=== PATIENT | male | born 1955 | race Caucasian/White ===

== ENCOUNTER → 2016-10-02 | Outpatient (CLI) | payer BC ==
--- NOTE | 2016-10-03 08:03 | EEG ---
DATE OF SERVICE: 10/02/2016 INDICATIONS FOR EXAMINATION: Syncope and memory loss. AGE: 61Y DESCRIPTION OF PROCEDURE: This EEG was performed using a 21-channel digital electroencephalograph, following international 10 to 20 system. DESCRIPTION OF THE RECORDING: From the beginning of the tracing, and with the patient's eyes closed, the background rhythm was mostly consisting of 8 to 9 Hz alpha frequency in the posterior occipital leads. No obvious asymmetry is seen. Photic stimulation was performed with a good driving response seen. No pathological waves were elicited. Hyperventilation was not performed. Later in the tracing, the patient does reach stage 2 of sleep and occasional sleep spindles are seen. No epileptiform discharges were seen. His EKG leads shows a regular rate and rhythm. INTERPRETATION: This asleep and awake EEG can be considered within normal limits. There was no asymmetry seen. No epileptiform discharges were noticed. The absence of epileptiform discharges does not rule out the diagnosis of epilepsy, therefore clinical correlation is recommended. Thank you, Dr. Abernathy, for allowing me to participate in the care of your patient. If you have any questions, please feel free to contact me.
== END | disposition home or self-care (01) ==
LOC: NEUROMAIN 12:40
PROVIDERS: ATTEND Psychiatry & Neurology Neurology
DX: R55 Syncope and collapse (principal); R41.3 Other amnesia; M54.81 Occipital neuralgia
CPT/HCPCS: 95819

== ENCOUNTER 2016-10-13 12:42 | Day surgery (SDC) | payer BC ==
[2016-10-07 16:08] VITALS: BMI 27.8
[~2016-10-13 12:42] MED LIST: SODIUM CHLORIDE 0.9% 1,000 ML IV SCH
[2016-10-13 13:16] VITALS: RESP 18; TEMP 98
[2016-10-13 17:07] VITALS: BP 125/77; PULSE 74
--- NOTE | 2016-10-13 17:50 | CE ---
DATE OF SERVICE: 61-year-old male patient. The patient was referred by Dr. Swain for a tilt table test. Baseline blood pressure 133/87 mm of mercury, which correspond to be clear site blood pressures. The patient was tilted upright at an angle of 70 degrees per protocol. There was an immediate drop in his blood pressure to 114/69 millimeters of mercury (at least between 10 to 15 mm mercury systolic) but he had no symptoms at that time. Thereafter there was a steady slow decline in his blood pressure. The lowest blood pressure recorded was 99/70 mmHg. Occasionally he felt lightheaded for the latter half of the procedure. He was laid flat. His blood pressure again increased to 137/87 mm Hg. There was a minimal change in his heart rate corresponding to the slow decline in his blood pressure. IMPRESSION: Mild dysautonomic response to upright tilting (orthostatic hypotension syndrome). No syncope. The patient felt lightheaded.
== END 2016-10-13 15:45 | disposition home or self-care (01) ==
LOC: CATHEP 12:42
PROVIDERS: ATTEND Internal Medicine Clinical Cardiac Electrophysiology
DX: I95.1 Orthostatic hypotension (principal)
CPT/HCPCS: 93005; 93660

== ENCOUNTER → 2016-10-18 | Outpatient (CLI) | payer BC ==
--- NOTE | 2016-10-19 10:00 | MR ---
EXAMINATION TYPE: MR brain wo con DATE OF EXAM: 10/18/2016 12:29 PM COMPARISON: 11/28/2013 HISTORY: amnesia, dizzy, headache, weakness CONTRAST: None TECHNIQUE: Multiplanar, multiecho imaging on a 3.0 Rosanne magnet is performed through [facility]. Study is performed within 24 hours of arrival to the hospital. The craniovertebral junction is normal. The pituitary is normal. Diffusion-weighted imaging is performed. No abnormal hyperintensity is present to suggest an acute i ntracranial infarct or acute ischemic change. There are scattered punctate areas of hyperintensity on T2 and Inversion Recovery weighted sequences which are non-specific but can be related to microvascular ischemic changes. Ventricles and sulci are appropriate for the patient age. Fluid is within the left mastoid air cells inferiorly. Correlate for acute left mastoiditis. Mucosal thickening is within ethmoid air cells. Right septal deviation is noted. IMPRESSIONS: 1. Scattered stable appearing chronic white matter ischemic changes. 2. Clinical correlation recommended for acute left mastoiditis.
== END | disposition home or self-care (01) ==
LOC: RADMRIMAIN 11:55
PROVIDERS: ATTEND Psychiatry & Neurology Neurology
DX: R90.82 White matter disease, unspecified (principal); M54.81 Occipital neuralgia
CPT/HCPCS: 70551

== ENCOUNTER → 2016-11-26 | Outpatient (CLI) | payer BC ==
--- NOTE | 2016-11-26 15:17 | CT ---
EXAMINATION TYPE: CT iac wo con DATE OF EXAM: 11/26/2016 3:05 PM COMPARISON: MRI brain October 18, 2016. CT brain June 10, 2013 HISTORY: abnormal mastoid findings on prior MRI, extensive cholesteatoma per order. CT DLP: 150.0 mGycm. Automated Exposure Control for Dose Reduction was Utilized. TECHNIQUE: CT scan of internal auditory canal is performed without contrast, thin cut axial images ar e obtained, coronal reformatted images are also reviewed. FINDINGS: The external auditory canals are patent bilaterally. Mastoid air cells show persistent opa cification of majority of left mastoid air cells unchanged from 2013 CT. There is been prior left te mporal or partial mastoid surgery redemonstrated. No suspicious fluid signal right mastoid air cells is seen. The middle ear ossicles are symmetric and unremarkable. There is no evidence of suspicious surrounding soft tissue density to suggest cholesteatoma bilaterally. The scutum is preserved bilate rally. The cochlea and the semicircular canals are symmetric . On the left side the superior canal is loss of normal overlying bone seen best coronal images 106 through 109.Vestibular aqueduct and int ernal carotid canal appear unremarkable. There is asymmetric flattening and spurring of the left temporomandibular joint versus opposite right side. There is 7 mm ossific structure left frontal sinus on axial image 65 suspicious for osteoma. V isualized portion brain parenchyma is felt within normal limits. The globes are intact bilaterally. IMPRESSION: 1. Evidence of prior surgery left mastoid air cells with chronic opacification suggest chronic mastoi ditis. 2. 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
== END | disposition home or self-care (01) ==
LOC: RADCTMAIN 14:50
PROVIDERS: ATTEND Otolaryngology
DX: H71.12 Cholesteatoma of tympanum, left ear (principal); Z98.890 Other specified postprocedural states
CPT/HCPCS: 70480

== ENCOUNTER → 2017-06-17 | Outpatient (CLI) | payer BC ==
--- NOTE | 2017-06-17 18:02 | CONS ---
CONSULTATION This patient is a 62-year-old gentleman who has been evaluated in the sleep center for obstructive sleep apnea-hypopnea syndrome. HISTORY OF PRESENT ILLNESS/SLEEP-WAKE EVALUATION: Patient was diagnosed with obstructive sleep apnea about 6 years ago in a different institution and was started on treatment with CPAP but had difficulties with CPAP and was not able to use it; he quit treatment in about 6 weeks. At present his sleep schedule is from around 10 p.m. to midnight until 6:30 to 9 a.m. No problem with falling asleep. No TV in bedroom. According to his , he snores, has episodes of stopped breathing during sleep. He wakes up from sleep up to 4 times with up to 4 episodes of nocturia, panic attacks and heartburn. He also has positive history of restless legs, sleeptalking and sweating. In the morning he wakes up tired, has difficulties paying attention, problems with concentration, depression, anxiety, sexual dysfunction. [place] Sleepiness Scale is increased at 10. PAST MEDICAL HISTORY: 1. Hypertension. 2. Hyperlipidemia. 3. Episodes of dizziness. 4. BPH. 5. Acid reflux. 6. Anxiety. 7. Bipolar. 8. Restless legs. 9. Ankylosing spondylitis. PAST SURGICAL HISTORY: 1. Surgery for nasal septum deviation. 2. Hernia repair. MEDICATIONS: 1. Enbrel. 2. Simvastatin. 3. Lamotrigine. 4. Metoprolol. 5. Omeprazole. 6. Gabapentin. 7. . 8. Clonazepam. 9. Citalopram. 10.Zocor. 11.Lamictal. 12.Toprol. 13.Celexa. SOCIAL HISTORY: Negative for smoking or using alcohol. FAMILY HISTORY: Hypertension, snoring, headaches. REVIEW OF SYSTEMS: Multiple awakenings from sleep. Sleepiness during the day. PHYSICAL EXAM: A pleasant gentleman without distress. VITAL SIGNS: BP 136/86, HR 69, RR 18, height 69 inches, weight 202 pounds, BMI 29.8. Neck 17-3/4 inches in circumference. Temperature 98.0. Oxygen saturation on room air 95%. HEENT: PERRLA, EOMI. Evaluation of oropharynx showed tongue protrudes midline; extremely low position of soft palate. NECK: Supple. No JVD. Thyroid is not palpable. LUNGS: Clear to percussion and to auscultation. Good air exchange. No wheezing or rhonchi. HEART: S1, S2 irregularly irregular. ABDOMEN: Slightly obese. EXTREMITIES: No clubbing or cyanosis. GLASS SMOOTHER: Awake, alert and oriented x3. Cranial nerves 2 to 7 intact. There is no fasciculation or atrophy noted. No focal deficits observed. IMPRESSION: 1. Snoring, witnessed episodes of stopped breathing during sleep, low position of soft palate, history of obstructive sleep apnea in the past, sleepiness, wide neck; obstructive sleep apnea-hypopnea syndrome. 2. Overweight; borderline to obesity; BMI 29.8. 3. Hyperlipidemia. 4. Hypertension. 5. Benign prostatic hypertrophy. 6. History of episodes of dizziness. 7. Acid reflux. 8. Anxiety. 9. Bipolar. 10.Restless leg syndrome. 11.Ankylosing spondylitis. 12.Status post surgical treatment of nasal septum deviation x2. 13.Status post hernia repair. PLAN: 1. Polysomnography for evaluation of patient's breathing during sleep. 2. CPAP/BiPAP titration if sleep study confirms obstructive sleep apnea-hypopnea syndrome. 3. Preferable position during sleep on the side. 4. No driving if patient feels any sleepiness. Patient is aware of civil and criminal liability for unsafe driving. 5. I will see patient for follow-up visit to explain results of testing and following plan. Thank you very much for referring this patient for consultation. Sincerely, Shad Isidro MD, PhD, FAASM Diplomat of [employer] [employer] Supervisor of [facility] [place] MMODL / IJN: [id number] /
== END ==
LOC: SLEEP 15:28
PROVIDERS: ATTEND Internal Medicine
DX: G47.33 Obstructive sleep apnea (adult) (pediatric) (principal); E66.3 Overweight; E78.5 Hyperlipidemia, unspecified; I10 Essential (primary) hypertension; N40.0 Benign prostatic hyperplasia without lower urinary tract symptoms; K21.9 Gastro-esophageal reflux disease without esophagitis; F41.9 Anxiety disorder, unspecified; F31.9 Bipolar disorder, unspecified; G25.81 Restless legs syndrome; M45.9 Ankylosing spondylitis of unspecified sites in spine; Z98.890 Other specified postprocedural states; Z68.29 Body mass index [BMI] 29.0-29.9, adult; Z79.899 Other long term (current) drug therapy
CPT/HCPCS: 99211

== ENCOUNTER → 2017-09-17 | Outpatient (CLI) | payer BC ==
--- NOTE | 2017-09-17 14:49 | PN ---
PROGRESS NOTE DATE OF SERVICE: 09/17/2017 62-year-old gentleman has been followed in Sleep Center for treatment of obstructive sleep apnea-hypopnea syndrome. Recently patient has been diagnosed with mild obstructive sleep apnea by results of home sleep apnea test. By this test apnea-hypopnea index was 5.2, but the patient did not sleep for the whole time of the test. At home, it might be underestimation of his breathing problems. The patient was started on treatment with CPAP automatic regimen at the pressure range between 5 and 12 and today he came for followup visit. He is using Dream Wear mask and often mask is off during the night and he feels that there is some air leak. I checked his CPAP unit. Usage is 29/30 nights and 25/30 nights more than 4 hours. Average usage is 6.4 hours. Pressure range is 9.7 cm of water. Leak is high 44 L/minute. Apnea-hypopnea index reading for the last month is 3.8. Patient continued to feel sleepiness during the day. [place] Sleepiness Scale today is 17. PHYSICAL EXAM: GENERAL Patient in no distress VITAL SIGNS BP 110/75, HR 74, RR 16, weight 203, temp 98.4, oxygen saturation room air 96%. HEENT PERRLA, EOMI, evaluation of oropharynx showed extremely low position of soft palate. NECK Supple, no JVD. Thyroid is not palpable. LUNGS Clear to percussion and to auscultation. Good air exchange. No wheezing or rhonchi. HEART S1, S2 regular. No murmurs, gallops, or rubs. ABDOMEN Obese. Soft and nontender. Bowel sounds are present. No organomegaly appreciated. EXTREMITIES No clubbing or cyanosis. KILNMAN Awake, alert, and oriented X3. Cranial nerves 2 to 7 intact. There is no fasciculation or atrophy. noted. No focal deficits observed. IMPRESSION: 1. Mild obstructive sleep apnea-hypopnea syndrome. Breathing improved on CPAP in automatic regimen 5-12 most time the pressure is 9.7. 2. The patient continued to have symptoms of excessive daytime sleepiness. 3. Significant leak from his mask during the treatment. 4. Hypertension. 5. Hyperlipidemia. 6. Benign prostatic hypertrophy. 7. Episodes of dizziness. 8. Acid reflux. 9. Anxiety. 10.Bipolar. 11.Ankylosing spondylitis. 12.Status post surgical treatment for nasal septum deviation. PLAN: 1. We will change the patient's nasal pillow and nasal mask to prevent any significant leak. 2. Continue to use CPAP equipment every night. 3. Sleep hygiene with regular time in bed for at least 7-1/2 hours. 4. No driving if feels any sleepiness. 5. Followup visit in 2 months. Shad Isidro MD, PhD, FAASM Diplomat of [employer] Rehabilitation Teacher of [facility] [place] MMODL / IJN: [id number] /
== END | disposition home or self-care (01) ==
LOC: SLEEP 13:13
PROVIDERS: ATTEND Internal Medicine
DX: G47.33 Obstructive sleep apnea (adult) (pediatric) (principal); I10 Essential (primary) hypertension; E78.5 Hyperlipidemia, unspecified; N40.0 Benign prostatic hyperplasia without lower urinary tract symptoms; K21.9 Gastro-esophageal reflux disease without esophagitis; F41.9 Anxiety disorder, unspecified; F31.9 Bipolar disorder, unspecified; M45.9 Ankylosing spondylitis of unspecified sites in spine; Z99.89 Dependence on other enabling machines and devices; Z98.890 Other specified postprocedural states

== ENCOUNTER 2017-10-20 14:10 | Emergency (ER) | payer BC ==
[2017-10-20] MEDS ORDERED: hydrOXYzine PAMOATE 25 MG CAP PO ONE (14:44)
--- NOTE | 2017-10-20 14:52 | ED ---
Anxiety HPI - General Chief Complaint: Anxiety Stated Complaint: anxiety Time Seen by Provider: 10/20/17 14:24 Source: patient, family Mode of arrival: ambulatory - History of Present Illness Initial Comments: Patient is a 62-year-old male with a history of anxiety, and bipolar depression who presents with a chief complaint of anxiety. Patient states that he is working with Dr. Soria to adjust his medications. Currently the patient is on Celexa, he was weaned off all benzodiazepines, is currently weaning himself off of Lamictal. Patient states that for the last 2 days, the patient has been a constant state of anxiety. It is to the point where he cannot sleep. He cannot identify any inciting incidences. There are no specific aggravating or alleviating factors. Timing is constant. Patient states that he has had intermittent thoughts of suicidal ideation. He does have access to firearms in weapons at home. - Related Data Home Medications: Home Medications Medication Instructions Recorded Confirmed Etanercept [Enbrel] 50 mg SQ Q7DAYS 09/22/14 10/20/17 Simvastatin [Zocor] 40 mg PO DAILY 09/22/14 10/20/17 lamoTRIgine [LaMICtal] 150 mg PO BID 09/22/14 10/20/17 Metoprolol Succinate [Toprol XL] 25 mg PO DAILY 10/07/16 10/20/17 clonazePAM [KlonoPIN] 0.5 mg PO BID PRN 10/07/16 10/20/17 Citalopram Hydrobromide [CeleXA] 40 mg PO DAILY 10/20/17 10/20/17 Previous Rx's Medication Instructions Recorded hydrOXYzine PAMOATE [Vistaril] 50 mg PO TID #30 capsule 10/20/17 Allergies/Adverse Reactions: Allergies Allergy/AdvReac Type Severity Reaction Status Date / Time hydrocodone bitartrate Allergy Itching Verified 10/20/17 14:34 [From Vicodin] iodine Allergy Diarrhea Verified 10/20/17 14:34 Penicillins Allergy Unknown Verified 10/20/17 14:34 shellfish derived Allergy Diarrhea Verified 10/20/17 14:34 Review of Systems ROS Statement: Those systems with pertinent positive or pertinent negative responses have been documented in the HPI. ROS Other: All systems not noted in ROS Statement are negative. Psychiatric: Reports: anxiety, depression, suicidal thoughts Past Medical History Past Medical History: GERD/Reflux, Hyperlipidemia, Hypertension, Musculoskeletal Disorder, Prostate Disorder, Sleep Apnea/CPAP/BIPAP Additional Past Medical History / Comment(s): SLEEP APNEA (DOES NOT USE MACHINE) , BIPOLAR, ARTHRITIS, PAST HX OF CROHNS, ENLARGED PROSTATE, ANKYLOSING SPONDYLITIS, RLS, NEUROPATHY, STATES OCCASIONAL DIZZINESS. History of Any Multi-Drug Resistant Organisms: None Reported Past Surgical History: Cholecystectomy, Hernia Repair Additional Past Surgical History / Comment(s): lt ear surgery, lt foot surgery, rt rotator cuff surgery, nasal surgeries x2, colonoscopies Past Anesthesia/Blood Transfusion Reactions: No Reported Reaction Past Psychological History: Anxiety, Bipolar, Depression Smoking Status: Never smoker - Past Family History Daughter(s) Additional Family Medical History / Comment(s): MS Father Family Medical History: Cancer General Exam Limitations: no limitations General appearance: alert, in no apparent distress Head exam: Present: atraumatic, normocephalic Eye exam: Present: normal appearance ENT exam: Present: normal exam Respiratory exam: Present: normal lung sounds bilaterally. Absent: respiratory distress Cardiovascular Exam: Present: regular rate, normal rhythm GI/Abdominal exam: Present: soft. Absent: distended, tenderness Rectal exam: Present: deferred Neurological exam: Present: alert, oriented X3, normal gait Psychiatric exam: Present: depressed, anxious Skin exam: Present: warm, dry, intact Course Vital Signs 10/20/17 14:11 Temperature 98.7 F Pulse Rate 80 Respiratory 20 Rate Blood Pressure 133/71 O2 Sat by Pulse 95 Oximetry Medical Decision Making - Medical Decision Making Patient presents with a chief complaint of anxiety. On initial evaluation, vital signs are stable, patient is in no acute distress. When questioned, the patient states that he has had intermittent thoughts of suicide. He does not currently have a plan. The patient does state however that he does have access to weapons at home. Patient will be evaluated by EPS 4:17 PM Patient was evaluated by EPS. At this time, patient states that he is not suicidal or homicidal. Patient will be directed towards outpatient follow-up. He was further instructed to try to contact his psychiatrist, Dr. Castillo. Patient was given explicit return to emergency department instructions. At this time, patient will be prescribed Vistaril and instructed to follow-up with primary care, in psychiatry. The patient's was instructed to remove firearms from the house, and make sure that there are place of the patient cannot reach them. She is agreeable with this care plan. Disposition Clinical Impression: Acute anxiety, Panic attack, Depression Disposition: HOME SELF-CARE Condition: Good Instructions: Generalized Anxiety Disorder (ED) Prescriptions: hydrOXYzine PAMOATE [Vistaril] 50 mg PO TID #30 capsule Referrals: Curry Abernathy MD [Primary Care Provider] - 1-2 days
[2017-10-20 17:34] VITALS: BP 144/82; PULSE 68; RESP 18; TEMP 98.8
== END 2017-10-20 17:33 | disposition home or self-care (01) ==
LOC: EC 14:10
DX: F41.0 Panic disorder [episodic paroxysmal anxiety] (principal); F31.9 Bipolar disorder, unspecified; K21.9 Gastro-esophageal reflux disease without esophagitis; E78.5 Hyperlipidemia, unspecified; I10 Essential (primary) hypertension; Z79.899 Other long term (current) drug therapy; Z88.0 Allergy status to penicillin; Z88.5 Allergy status to narcotic agent; Z91.013 Allergy to seafood; Z91.048 Other nonmedicinal substance allergy status
CPT/HCPCS: 82075; 99283

== ENCOUNTER → 2017-12-08 | Outpatient (CLI) | payer BC ==
--- NOTE | 2017-12-08 17:26 | PN ---
PROGRESS NOTE This 60-year-old male patient was initially evaluated by Dr. Isidro. He was diagnosed having obstructive sleep apnea. The patient is coming in for a compliancy check. I reviewed the sleep study. The patient is a very mild sleep apnea. Based on his home sleep study that showed an AHI of 5.2. The patient was offered CPAP therapy and the patient is currently on auto CPAP with a minimum pressure of 5 maximum pressure of 12. He was tried on different masks was given dream wear mask. He was given nose mask and he was given full face mask. He was not comfortable with any of these. He is currently using a Clemens FX mask which he thinks is the best. He does not report any marked improvement in his symptoms. He does not have any major hypersomnia or sleepiness anyway. His sleep quality is essentially the same. The only benefit he is experiencing is the absence of the snoring which is completely recovered. I checked compliance data and over the past 30 days the patient has average around 6.9 hours of CPAP use per night. He is averaging his leak factor 30 L per minute. His AHI is down to 4.1. He had to use the CPAP for more than 4 hours, 22 out of the past 30 days. He seems to be committed knowing that his is very happy with ongoing treatment and she states that his snoring has completely subsided. He has also known multiple comorbidities include hypertension, hyperlipidemia, BPH, acid reflux anxiety/depression/bipolar disorder along with a history of ankylosing spondylitis. REVIEW OF SYSTEMS: 12-point review of system was done. Positive findings are mentioned above in the history of present illness. The patient has some ongoing fatigue and tiredness [place] Score is at 14 for now. No body aches or pains. No muscle paralysis. No weakness. No dreams. No hallucinations. No nightmares. Occasional dizziness. Occasional nocturia. No chest pain. No shortness of breath. No heartburn during sleep. No altered mentation. PHYSICAL EXAMINATION: BP is 117/76, pulse 78, respirations 16, temperature 98.0, saturation 94% on room air. Height is 5 feet 9 inches, weight 195, [place] score of 14. BMI 28.9. General appearance: Calm, comfortable. Head is atraumatic, normocephalic. Neck short, supple. Mild crowding of posterior pharynx, Mallampati class 3. There is no goiter or neck masses. LUNGS: Clear to auscultation. HEART: Sounds regular rate and rhythm. Normal S1, S2. No S3, S4. No murmurs. ABDOMEN: Soft, nontender. No organomegaly. EXTREMITIES: No edema. No cyanosis or clubbing. NEUROLOGIC: The patient awake and alert times 3. No focal neurological deficits. Psychiatric adequate mood and affect. IMPRESSION: 1. Diffuse mild obstructive sleep apnea with an AHI of 5.2. 2. Chronic snoring recovered with CPAP therapy. 3. Hypertension. 4. Hyperlipidemia. 5. Benign prostatic hypertrophy. 6. Acid reflux. 7. Anxiety/bipolar disorder. 8. Ankylosing spondylitis. PLAN: 1. Continue CPAP therapy at same level of pressure. 2. Offered this patient dream wear nasal pillows. 3. Encourage weight loss. 4. Optimize sleep hygiene measures. 5. Averaging 6.9 hours of CPAP use per night, will likely increase his compliance even further and utilizing CPAP more than 4 hours every night. 6. Follow up with Dr. Isidro in 6 months' time. His treatment is successful for now. MMODL / IJN: [id number] /
== END | disposition home or self-care (01) ==
LOC: SLEEP 14:18
PROVIDERS: ATTEND Internal Medicine
DX: G47.33 Obstructive sleep apnea (adult) (pediatric) (principal); I10 Essential (primary) hypertension; E78.5 Hyperlipidemia, unspecified; N40.0 Benign prostatic hyperplasia without lower urinary tract symptoms; K21.9 Gastro-esophageal reflux disease without esophagitis; M45.9 Ankylosing spondylitis of unspecified sites in spine; Z99.89 Dependence on other enabling machines and devices

== ENCOUNTER → 2018-08-03 | Outpatient (CLI) | payer BC ==
--- NOTE | 2018-08-04 07:33 | ECHOF ---
Referral Reason:Dizziness R42 MEASUREMENTS -------- HEIGHT: 177.8 cm WEIGHT: 90.7 kg BP: RVIDd: 2.3 cm (< 3.3) IVSd: 1.0 cm (0.6 - 1.1) LVIDd: 5.1 cm (3.9 - 5.3) LVPWd: 1.1 cm (0.6 - 1.1) IVSs: 1.7 cm LVIDs: 3.7 cm LVPWs: 1.6 cm LAESV Index (A-L): 23.95 ml/m Ao Diam: 3.3 cm (2.0 - 3.7) AV Cusp: 2.3 cm (1.5 - 2.6) LA Diam: 3.6 cm (2.7 - 3.8) MV EXCURSION: 17.354 mm (> 18.000) MV EF SLOPE: 75 mm/s (70 - 150) EPSS: 1.0 cm MV E Ervin: 0.67 m/s MV DecT: 208 ms MV A Ervin: 0.72 m/s MV E/A Ratio: 0.93 AR PHT: 556 ms RAP: 5.00 mmHg RVSP: 14.05 mmHg FINDINGS -------- Sinus rhythm. This was a technically adequate study. The left ventricular size is normal. There is borderline concentric left ventricular hypertrophy. Overall left ventricular systolic function is low-normal with, an EF between 50 - 55 %. The right ventricle is normal in size and function. Normal LA size by volume 22+/-6 ml/m2. The right atrium is normal in size. Aortic valve is trileaflet and is mildly thickened. There is [id number] aortic regurgitation. There is no evidence of aortic stenosis. The mitral valve leaflets are mildly thickened. Mild mitral regurgitation is present. Mild tricuspid regurgitation present. Right ventricular systolic pressure is normal at < 35 mmHg. There is no evidence of pulmonary hypertension. Trace/mild (physiologic) pulmonic regurgitation. The aortic root size is normal. Normal inferior vena cava with normal inspiratory collapse consistent with estimated right atrial pre ssure of 5 mmHg. There is no pericardial effusion. CONCLUSIONS -------- 1. Sinus rhythm. 2. This was a technically adequate study. 3. The left ventricular size is normal. 4. There is borderline concentric left ventricular hypertrophy. 5. Overall left ventricular systolic function is low-normal with, an EF between 50 - 55 %. 6. Normal LA size by volume 22+/-6 ml/m2. 7. Aortic valve is trileaflet and is mildly thickened. 8. There is jceb-[id number] aortic regurgitation. 9. There is no evidence of aortic stenosis. 10. The mitral valve leaflets are mildly thickened. 11. Mild mitral regurgitation is present. 12. Mild tricuspid regurgitation present. 13. Right ventricular systolic pressure is normal at < 35 mmHg. 14. Trace/mild (physiologic) pulmonic regurgitation. 15. The aortic root size is normal. 16. There is no pericardial effusion. DENTAL LABORATORY TECHNICIAN APPRENTICE: Ranjith Ferguson RDCS
== END | disposition home or self-care (01) ==
LOC: RADECHMAIN 16:17
PROVIDERS: ATTEND Family Medicine
DX: I08.8 Other rheumatic multiple valve diseases (principal)
CPT/HCPCS: 93306

== ENCOUNTER → 2018-09-09 | Outpatient (CLI) | payer BC ==
--- NOTE | 2018-09-09 13:55 | XR ---
EXAMINATION TYPE: XR pelvis AP view DATE OF EXAM: 09/09/2018 CLINICAL HISTORY: Chronic bilateral lower extremity radiculopathy. TECHNIQUE: A single AP view of the pelvis is obtained. COMPARISON: None. FINDINGS: There is no acute fracture/dislocation evident in the pelvis. The hip joints both demonst rate moderate femoral acetabular arthropathy with small subchondral cysts, with joint space narrowing and acetabular roof sclerosis. Prior hernia repair has been performed with surgical coils in the lef t hemipelvis. The overlying soft tissue appears unremarkable. The proximal coccyx is not well visual ized and may be obscured by overlying structures or relate to a nonunited prior fracture. IMPRESSION: 1. There is no acute fracture or dislocation in the pelvis. 2. Moderate femoral acetabular arthropathy is seen bilaterally. 3. Partial obscuration of the proximal coccyx that could relate to obscuration by overlying structure s or prior nonunited fracture. If there is further concern CT could be performed of the pelvis.
--- NOTE | 2018-09-09 14:05 | XR ---
EXAMINATION TYPE: XR lumbar spine 2 or 3V DATE OF EXAM: 09/09/2018 CLINICAL HISTORY: Arthropathy and chronic bilateral lower extremity radiculopathy. TECHNIQUE: Frontal and lateral images of the lumbar spine are obtained. COMPARISON: None FINDINGS: There are 5 lumbar type vertebral bodies identified. There is very minimal anterolisthesis of L5 on S1 (grade 1). Otherwise the lumbar spine shows satisfactory alignment without evidence of a cute fracture or dislocation. Vertebral body heights are maintained. There is intervertebral disc spa ce narrowing at L4-L5 and L5-S1 with small anterior osteophytes of the lower lumbar spine and facet a rthropathy from L3 through S1. There is suspicion for neural foraminal narrowing at L4-5 and L5-S1 al though oblique images were MRI could confirm this finding. Cholecystectomy clips are seen in the righ t upper quadrant. Minimal atherosclerosis of the abdominal aorta is noted. The overlying soft tissue appears unremarkable. IMPRESSION: 1. No acute fracture is seen in the lumbar spine. 2. Mild to moderate multilevel degenerative disc disease of the lower lumbar spine with grade 1 anter olisthesis of L5 on S1 and suspicion for neural foraminal narrowing at L4-L5 and L5-S1. This could be confirmed with oblique images or MRI.
== END | disposition home or self-care (01) ==
LOC: RADXRMAIN 13:21
PROVIDERS: ATTEND Internal Medicine Rheumatology
DX: M99.73 Connective tissue and disc stenosis of intervertebral foramina of lumbar region (principal); M43.17 Spondylolisthesis, lumbosacral region; M51.36 Other intervertebral disc degeneration, lumbar region; M12.851 Other specific arthropathies, not elsewhere classified, right hip; M12.852 Other specific arthropathies, not elsewhere classified, left hip
CPT/HCPCS: 72100; 72170

== ENCOUNTER → 2018-10-06 | Outpatient (CLI) | payer BC ==
--- NOTE | 2018-10-06 17:00 | MR ---
EXAMINATION TYPE: MR lumbar spine wo con DATE OF EXAM: 10/06/2018 COMPARISON: HISTORY: Spinal stenosis / Herniated disc CONTRAST: None TECHNIQUE: Multiplanar, multisequence images of the lumbar spine were acquired. FINDINGS: L5-S1: There is a grade 1 spondylolisthesis of arrival 5 anterior on S1. Disc uncovering is present. Some disc herniation posterior to the endplate of L5 may be present. No thecal sac contact is evident . No spinal canal stenosis present. Mild facet hypertrophy is present. No foraminal stenosis. L4-L5: There is loss of disc height to this level. Broad-based disc herniation is present with modera te anterior thecal sac compression. No AP spinal canal stenosis is present. Some contact with the exi ting nerve root may be present. There is moderate bilateral foraminal stenosis. Some disc material ma y have contact with the exiting nerve root on the right. Correlate with the radicular symptoms. L3-L4: Mild central bulge is present with mild anterior thecal sac compression. Extension beyond the endplate of L3 may be present suggesting subligamentous disc extension. Mild facet hypertrophy is pre sent. Neural foramen are patent. L2-L3: No significant disc bulge or disc herniation. No spinal canal stenosis. No foraminal stenosi s. L1-L2: No significant disc bulge or disc herniation. No spinal canal stenosis. No foraminal stenosi s. T12-L1: No significant disc bulge or disc herniation. No spinal canal stenosis. No foraminal stenos is. IMPRESSION: 1. Broad-based disc herniation with extension into the foramen at L4-5. Moderate bilateral foraminal stenosis is present. Correlate with right radicular symptoms. 2. Grade 1 spondylolisthesis of L5 anterior on S1. 3. Mild central disc bulge L3-4 with subligamentous disc extension.
== END | disposition home or self-care (01) ==
LOC: RADMRIMAIN 13:38
PROVIDERS: ATTEND Internal Medicine Rheumatology
DX: M51.26 Other intervertebral disc displacement, lumbar region (principal); M43.17 Spondylolisthesis, lumbosacral region; M99.73 Connective tissue and disc stenosis of intervertebral foramina of lumbar region
CPT/HCPCS: 72148

== ENCOUNTER 2019-02-03 13:26 | Emergency (ER) | payer BC ==
[2019-02-03] MEDS ORDERED: DIAZEPAM 5 MG TAB PO STA (15:45)
[2019-02-03] MEDS ORDERED: HYDROcodone/APAP 5-325MG 1 EACH TAB PO STA (15:45)
[2019-02-03] MEDS ORDERED: KETOROLAC 60 MG/2 ML VIAL IM STA (15:45)
--- NOTE | 2019-02-03 15:59 | XR ---
EXAMINATION TYPE: XR lumbar spine 2 or 3V DATE OF EXAM: 02/03/2019 COMPARISON: 09/09/2018 HISTORY: Pain TECHNIQUE: Three-view lumbar spine FINDINGS: There is loss of disc height L4-5. Milder loss of disc height is present L5 on L3-4. Verteb ral body heights are preserved. There 5 lumbar type vertebral bodies. Pedicles are intact. No signifi cant interval changes evident. IMPRESSION: 1. Degenerative disc changes greatest L4-5 and also present L3-4 L5-S1
[2019-02-03] MEDS ORDERED: ACET/COD 300 MG/30 MG STARTER PACK 6 TAB BTL PO STA (16:56)
--- NOTE | 2019-02-03 17:27 | ED ---
Back Pain HPI - General Chief Complaint: Back Pain/Injury Stated Complaint: back pain Time Seen by Provider: 02/03/19 15:14 Source: patient Limitations: no limitations - History of Present Illness Initial Comments: 63yo male presenting today for chief complaint of low back pain. Patient states she has history of chronic low back pain he states it flares occasionally. Patient states he has had lumbar disc herniations with recent MRI September 2018. Patient states he does see an orthopedic surgeon for his back. Patient states today while sitting on a couch she began having midline back pain he states it felt similar to his previous back exacerbation. Patient states increased from going from sitting to standing. Patient states once he started walking and felt better. Patient denies any abdominal pain chest pain service breath he denies any loss of bowel bladder control urinary retention loss sensation of the lower extremities or muscle weakness of the legs. Patient states he did have occasional tingling in the lower legs bilaterally. Patient states that he was not controlled with [id number] medications and presents emergency department for evaluation after taking a P was prescribed Flexeril. Upon arrival pt appears well, able to ambulate and weight bear. - Related Data Home Medications Medication Instructions Recorded Confirmed Etanercept [Enbrel] 50 mg SQ [id number] 09/22/14 10/20/17 Simvastatin [Zocor] 40 mg PO DAILY 09/22/14 10/20/17 lamoTRIgine [LaMICtal] 150 mg PO BID 09/22/14 10/20/17 Metoprolol Succinate [Toprol XL] 25 mg PO DAILY 10/07/16 10/20/17 clonazePAM [KlonoPIN] 0.5 mg PO BID PRN 10/07/16 10/20/17 Citalopram Hydrobromide [CeleXA] 40 mg PO DAILY 10/20/17 10/20/17 Previous Rx's Medication Instructions Recorded hydrOXYzine PAMOATE [Vistaril] 50 mg PO TID #30 capsule 10/20/17 Allergies Allergy/AdvReac Type Severity Reaction Status Date / Time hydrocodone bitartrate Allergy Itching Verified 02/03/19 14:24 [From Vicodin] iodine Allergy Diarrhea Verified 02/03/19 14:24 Penicillins Allergy Unknown Verified 02/03/19 14:24 shellfish derived Allergy Diarrhea Verified 02/03/19 14:24 Review of Systems ROS Statement: Those systems with pertinent positive or pertinent negative responses have been documented in the HPI. ROS Other: All systems not noted in ROS Statement are negative. Past Medical History Past Medical History: GERD/Reflux, Hyperlipidemia, Hypertension, Musculoskeletal Disorder, Prostate Disorder, Sleep Apnea/CPAP/BIPAP Additional Past Medical History / Comment(s): SLEEP APNEA (DOES NOT USE MACHINE), BIPOLAR, ARTHRITIS, PAST HX OF CROHNS, ENLARGED PROSTATE, ANKYLOSING SPONDYLITIS, RLS, NEUROPATHY, STATES OCCASIONAL DIZZINESS. History of Any Multi-Drug Resistant Organisms: None Reported Past Surgical History: Cholecystectomy, Hernia Repair Additional Past Surgical History / Comment(s): lt ear surgery, lt foot surgery, rt rotator cuff surgery, nasal surgeries x2, colonoscopies Past Anesthesia/Blood Transfusion Reactions: No Reported Reaction Past Psychological History: Anxiety, Bipolar, Depression Smoking Status: Never smoker - Past Family History Daughter(s) Additional Family Medical History / Comment(s): MS Father Family Medical History: Cancer General Exam - General Exam Comments Initial Comments: General: The patient is awake and alert, in no distress, and does not appear acutely ill. Eye: Pupils are equal, round and reactive to light, extra-ocular movements are intact. No nystagmus. There is normal conjunctiva bilaterally. No signs of icterus. Ears, nose, mouth and throat: There are moist mucous membranes and no oral lesions. Neck: The neck is supple, there is no tenderness or JVD. Cardiovascular: There is a regular rate and rhythm. No murmur, rub or gallop is appreciated. Respiratory: Lungs are clear to auscultation, respirations are non-labored, breath sounds are equal. No wheezes, stridor, rales, or rhonchi. Gastrointestinal: Soft, non-distended, non-tender abdomen without masses or organomegaly noted. There is no rebound or guarding present. No CVA tenderness. Bowel sounds are unremarkable. Musculoskeletal: Upon inspection of the lumbar spine there is no abnormalities. Patient does have tenderness midline of the lumbar spine. He has no paravertebral tenderness. No flank pain . Normal ROM, no tenderness of the LE/hips. Strength 5/5 of the LE equal in comparison b/l. Sensation intact of the lower extremities including the saddle region bilaterally. DP pulses equal bilaterally 2+. 2/5 DTR of the patellar and achilles, no myoclonus or fasiculations. Neurological: A&O x 3. CN II-XII intact, There are no obvious motor or sensory deficits. Coordination appears grossly intact. Speech is normal. Skin: Skin is warm and dry and no rashes or lesions are noted. Psychiatric: Cooperative, appropriate mood & affect, normal judgment. Limitations: no limitations Course Vital Signs 02/03/19 02/03/19 14:21 17:36 Temperature 98.2 F 98.7 F Pulse Rate 88 77 Respiratory 16 18 Rate Blood Pressure 122/79 140/84 O2 Sat by Pulse 96 97 Oximetry Medical Decision Making - Medical Decision Making 63 male presented for low back pain. Patient states he struggles with chronic back pain history of previous herniations. I reviewed previous MRI of the lumbar spine. Patient denies falls or trauma. Patient denies IV drug use fever or history of cancer. There is no neurological deficits or vascular deficits on examination. Patient is midline tenderness palpation of the lumbar spine. Patient is afebrile upon arrival appearing well no signs of acute distress. Patient's pain is reduced with palpation as well as moving from sitting to standing position. Patient denies pain with sitting still. Patient is able to ambulate. There is no signs of cauda equina. Patient denies any history concerning for this. Patient appears well patient had some relief of symptoms with medication the emergency department. This time after negative imaging studies for acute osseous process patient did feel will for discharge with outpatient follow-up with his physician he follows for his chronic back pain. Patient is to see primary care provider in one to 2 days. Patient provided a starter pack for Tylenol #3 for breakthrough pain. I discussed the case with attending provider Dr. Roth who is agreeable to plan of care. Disposition Clinical Impression: Low back pain, Acute exacerbation of chronic low back pain, History of herniated intervertebral disc Disposition: HOME SELF-CARE Instructions (If sedation given, give patient instructions): Acute Low Back Pain (ED) Additional Instructions: Please use medication as discussed. Please follow-up with family doctor in the next 2 days, please follow-up with Dr. Kline as discussed. Please return to emergency room if the symptoms increase or worsen or for any other concerns- immediate return for inability to urinate, loss of bowel bladder control, loss sensation of the lower extremities or loss of strength in lower extremities, fever.-- The medications you were given today were valium, toradol and norco. Is patient prescribed a controlled substance at d/c from ED?: No Referrals: Gen Hinkle MD [Primary Care Provider] - 1-2 days Time of Disposition: 16:54
[2019-02-03 17:38] VITALS: BP 140/84; PULSE 77; RESP 18; TEMP 98.7
== END 2019-02-03 17:36 | disposition home or self-care (01) ==
LOC: EC 13:26
DX: M54.5 Low back pain (principal); G89.29 Other chronic pain; K21.9 Gastro-esophageal reflux disease without esophagitis; E78.5 Hyperlipidemia, unspecified; I10 Essential (primary) hypertension; N40.0 Benign prostatic hyperplasia without lower urinary tract symptoms; F31.9 Bipolar disorder, unspecified; F41.9 Anxiety disorder, unspecified; Z87.39 Personal history of other diseases of the musculoskeletal system and connective tissue; Z79.899 Other long term (current) drug therapy; Z88.0 Allergy status to penicillin; Z91.013 Allergy to seafood; Z88.5 Allergy status to narcotic agent; Z88.8 Allergy status to other drugs, medicaments and biological substances
CPT/HCPCS: 72100; 99284; 96372; J1885

== ENCOUNTER → 2019-02-19 | Outpatient (CLI) | payer BC ==
--- NOTE | 2019-02-20 17:19 | MR ---
EXAMINATION TYPE: MR lumbar spine wo con DATE OF EXAM: 02/19/2019 COMPARISON: MRI lumbar spine October 06, 2018. Lumbar spine x-ray February 03, 2019 HISTORY: Radiculopathy, lumbar region per order. Back pain into left buttocks and thigh for 7 weeks p er patient. TECHNIQUE: Multiplanar, multisequence imaging of the lumbar spine is performed without IV contrast. FINDINGS: Sagittal images of the lumbar spine show vertebral body heights to remain satisfactory. The re is stable grade 1 anterolisthesis of L5 on S1 redemonstrated. Bilateral pars defect L5 level are f elt present. Multilevel disc desiccation and disc space narrowing is redemonstrated. There is moderat e disc space narrowing L4-L5 level seen not significantly changed from prior MRI. The conus medullari s is normal in position and signal ending mid L1 level. The bone marrow signal intensity is overall heterogeneous. Axial images show the T12-L1 and L1-L2 levels to remain within normal limits. Axial images at L2-L3 level show new left paracentral disc extrusion seen best sagittal image 6 exten ding 9 mm below the space margin effacing the anterolateral thecal sac and the central left L3 nerve axial image 19. Bilateral neural foramina are patent. Axial images at the L3-L4 level redemonstrate mild to moderate broad disc bulge and mild to moderate facet degenerative changes bilaterally. There is effacement of the anterior thecal sac and mild bilat eral anterior inferior neural foraminal narrowing, left greater than right. There is no significant c hange from prior. Axial images at the L4-L5 level show moderate facet degenerative changes bilaterally and moderate bro ad disc bulge with minimal effacement of the anterior thecal sac and mild/moderate right greater than left bilateral neural foraminal narrowing. No significant change from prior. Axial images at L5-S1 levels show spondylolisthesis and moderate facet arthropathy bilaterally. Spina l canal is preserved as there is prominent epidural fat at this level. Bilateral neural foramina are patent. There is partial visualization of round T2 hyperintense lesion posterior right kidney felt to reflect simple thin-walled cyst similar to prior MRI. IMPRESSION: Multilevel degenerative changes mid to lower lumbar spine redemonstrated as detailed abov e. New disc herniation L2-L3 level is noted likely accounting for patient's new symptoms.
== END | disposition home or self-care (01) ==
LOC: RADMRIMAIN 10:41
PROVIDERS: ATTEND Family Medicine
DX: M48.061 Spinal stenosis, lumbar region without neurogenic claudication (principal); M51.26 Other intervertebral disc displacement, lumbar region; M43.17 Spondylolisthesis, lumbosacral region; M47.897 Other spondylosis, lumbosacral region
CPT/HCPCS: 72148

== ENCOUNTER → 2019-03-07 | Outpatient (CLI) | payer BC ==
[2019-03-07 16:25] LABS: African American GFR (CKD) 92.4 (60.0-200.0); Albumin 4.2 g/dL (3.80-4.90); Albumin/Globulin Ratio 1.75 (1.60-3.17); Anion Gap 9.9 mmol/L (4.00-12.00); Calcium 9.3 mg/dL (8.7-10.3); Carbon Dioxide 23.1 mmol/L (21.6-31.8); Globulin 2.4 g/dL (1.6-3.3); Potassium 4.5 mmol/L (3.5-5.5); Total Bilirubin 0.9 mg/dL (0.2-1.2); Total Protein 6.6 g/dL (6.2-8.2)
[2019-03-07 17:08] LABS: Hemoglobin A1C 6.5 % (4.0-6.0)
== END | disposition home or self-care (01) ==
LOC: LABWHC1 10:11
PROVIDERS: ATTEND Family Medicine
DX: E78.5 Hyperlipidemia, unspecified (principal); R73.01 Impaired fasting glucose
CPT/HCPCS: 36415; 80053; 80061; 83036; 83525

== ENCOUNTER → 2019-08-11 | Outpatient (CLI) | payer BC ==
--- NOTE | 2019-08-11 22:11 | PN ---
PROGRESS NOTE DATE OF SERVICE: 08/11/2019 This patient is a 64-year-old gentleman who has [facility] of obstructive sleep apnea-hypopnea syndrome. Patient continues to use his CPAP equipment every night for the whole night. No significant problems with mask fitting, pressure or humidification. [place] Sleepiness Scale today is 9. I checked the patient's CPAP unit. Usage is 100% of nights for more than 4 hours with average usage 9.2 hours per night. Range of the pressure is 4 to 12, with average pressure 10.2 cm of water. Leak is 20 L/minute, which is borderline. Apnea-hypopnea index is only 2.6, which is absolutely perfect. MEDICATIONS: 1. Simvastatin. 2. Carbidopa levodopa. 3. Omeprazole. 4. Cyclobenzaprine. 5. Enbrel. 6. Citalopram. 7. Lamotrigine. PHYSICAL EXAMINATION: GENERAL: A pleasant patient in no distress. VITAL SIGNS: BP 127/84, HR 85, RR 14, height 5 feet 9 inches, weight 198.0, body mass index 29.2, temperature 97.9, oxygen saturation at room air 94%. HEENT: PERRLA, EOMI. Evaluation of oropharynx showed tongue protrudes midline. Extremely low position of soft palate. Mallampati IV. NECK: Supple. No JVD. Thyroid is not palpable. LUNGS: Clear to percussion and to auscultation. Good air exchange. No wheezing or rhonchi. HEART: S1, S2 regular. No murmurs, gallops or rubs. ABDOMEN: Soft and nontender. Bowel sounds are present. No organomegaly. O EXTREMITIES: No clubbing or cyanosis. VALVE STEAMER: Awake, alert, and oriented x3. Cranial nerves 2 to 7 intact. There is no fasciculation or atrophy. noted. No focal deficits observed. Tremors of hands. IMPRESSION: 1. Obstructive sleep apnea-hypopnea syndrome, under full control with CPAP. The patient demonstrated great compliance with treatment, benefitting from treatment. 2. History of Parkinson's disease. 3. Hypertension. 4. Hyperlipidemia. 5. Acid reflux. 6. Benign prostatic hypertrophy. 7. History of anxiety and bipolar disorder. 8. History of ankylosing spondylitis. 9. Status post surgical treatment of nasal septum deviation. PLAN: 1. Patient will continue to use his CPAP equipment every night. 2. I will maintain all necessary CPAP prescriptions, including mask, tube, filters. 3. Not necessary to change any pressure regimen at the present time. 4. Watching and losing weight. 5. No driving if feeling any sleepiness. 6. Follow-up visit in one year, or earlier if patient has any problems. Thank you very much for allowing me to participate in the management of your patient. Sincerely, Shad Isidro MD, PhD, FAASM Diplomat of [place] [employer] [place] [employer] [facility] MMODL / IJN: [id number] /
== END | disposition home or self-care (01) ==
LOC: SLEEP 16:07
PROVIDERS: ATTEND Internal Medicine
DX: G47.33 Obstructive sleep apnea (adult) (pediatric) (principal); I10 Essential (primary) hypertension; E78.5 Hyperlipidemia, unspecified; K21.9 Gastro-esophageal reflux disease without esophagitis; N40.0 Benign prostatic hyperplasia without lower urinary tract symptoms; Z86.59 Personal history of other mental and behavioral disorders; Z87.39 Personal history of other diseases of the musculoskeletal system and connective tissue; Z79.899 Other long term (current) drug therapy

== ENCOUNTER → 2019-10-25 | Outpatient (CLI) | payer BC ==
[~2019-10-25] MED LIST changes: +REGADENOSON 0.4 MG/5 ML SYRINGE IV ONE; -SODIUM CHLORIDE 0.9% 1,000 ML IV SCH
--- NOTE | 2019-10-25 12:26 | NM ---
EXAMINATION TYPE: NM stress cardiolite complete DATE OF EXAM: 10/25/2019 COMPARISON: NONE HISTORY: 64-year-old male preoperative clearance TECHNIQUE: After the intravenous administration of 10.19 mCi Tc 99m Sestamibi - Cardiolite resting S PECT images acquired 50 minutes post injection. The patient received 0.4mg Lexiscan, 25.5 mCi Tc 99m Sestamibi - Stress images obtained 40 minutes post injection FINDINGS: Review of stress and rest SPECT images demonstrates fixed perfusion defect along the mid to apical an teroseptal wall and also along the inferior wall which may in part represent attenuation artifact. Di fficult to exclude some subtle reversibility at the apex. Gated analysis shows limited augmentation a t the apex and estimated left ventricular ejection fraction of 54 %. TID is calculated at 1.3 which i s elevated. IMPRESSION: 1. 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 Decreased perfusion along the inferior wall coul d represent additional infarct or attenuation artifact. 2. Difficult to exclude some subtle reversibility at the apex. 3. However, TID is elevated which can be seen in the setting of inducible multivessel balanced ischem ia. Further workup as indicated. 4. LVEF borderline diminished at 54%.
--- NOTE | 2019-10-25 12:49 | ECHOF ---
Referral Reason:[id number] Preop Clearance MEASUREMENTS -------- HEIGHT: 180.3 cm WEIGHT: 90.7 kg BP: IVSd: 1.2 cm (0.6 - 1.1) LVIDd: 4.6 cm (3.9 - 5.3) LVPWd: 1.3 cm (0.6 - 1.1) IVSs: 1.9 cm LVIDs: 2.1 cm LVPWs: 2.0 cm RVIDd: 2.5 cm (< 3.3) LAESV Index (A-L): 22.30 ml/m Ao Diam: 3.1 cm (2.0 - 3.7) LA Diam: 3.6 cm (2.7 - 3.8) AV Cusp: 2.1 cm (1.5 - 2.6) EPSS: 0.9 cm MV E Ervin: 0.70 m/s MV DecT: 138 ms MV A Ervin: 0.89 m/s MV E/A Ratio: 0.79 AR PHT: 689 ms RAP: 5.00 mmHg RVSP: 16.46 mmHg MV EF SLOPE: 35.82 mm/s (70 - 150) MV EXCURSION: 9.02 mm (> 18.000) TAPSE: 23.60 mm FINDINGS -------- Sinus rhythm. This was a technically good study. The left ventricular size is normal. There is mild concentric left ventricular hypertrophy. Overa ll left ventricular systolic function is normal with, an EF between 55 - 60 %. The diastolic fillin g pattern is normal for the age of the patient 11.40. The right ventricle is normal in size. The left atrial size is normal. Normal LA size by volume 22+/-6 ml/m2. The right atrial size is normal. Aortic valve is trileaflet and is mildly thickened. There is mild aortic regurgitation. The mitral valve is normal. The mitral valve leaflets are mildly thickened. Mild mitral regurgita tion is present. The tricuspid valve appears structurally normal. Mild tricuspid regurgitation present. Right vent ricular systolic pressure is normal at < 35 mmHg. There is no pulmonic regurgitation present. The aortic root size is normal. Normal inferior vena cava with normal inspiratory collapse consistent with estimated right atrial pre ssure of 5 mmHg. There is no pericardial effusion. CONCLUSIONS -------- 1. Sinus rhythm. 2. This was a technically good study. 3. The left ventricular size is normal. 4. There is mild concentric left ventricular hypertrophy. 5. Overall left ventricular systolic function is normal with, an EF between 55 - 60 %. 6. The diastolic filling pattern is normal for the age of the patient 11.40 7. The right ventricle is normal in size. 8. The left atrial size is normal. 9. Normal LA size by volume 22+/-6 ml/m2. 10. The right atrial size is normal. 11. Aortic valve is trileaflet and is mildly thickened. 12. There is mild aortic regurgitation. 13. The mitral valve is normal. 14. The mitral valve leaflets are mildly thickened. 15. Mild mitral regurgitation is present. 16. The tricuspid valve appears structurally normal. 17. Mild tricuspid regurgitation present. 18. Right ventricular systolic pressure is normal at < 35 mmHg. 19. There is no pulmonic regurgitation present. 20. The aortic root size is normal. 21. Normal inferior vena cava with normal inspiratory collapse consistent with estimated right atrial pressure of 5 mmHg. 22. There is no pericardial effusion. TEMPLATE CUTTER: Olga Bhatt, [facility]
--- NOTE | 2019-10-25 14:54 | EST ---
EXERCISE STRESS AGE: 64 SEX: M HT: 71" WT: 200 PROTOCOL: Lexiscan Cardiolite Stress Test HEART RATE REST: 85 BLOOD PRESSURE REST: 151/85 MAXIMUM HEART RATE ACHIEVED: 104 MAXIMUM BLOOD PRESSURE: 151/85 85% MPHR: 133 100% MPHR: 156 INDICATIONS: Abnormal EKG CLINICAL INFORMATION: Initially, this was an exercise treadmill stress test. However, he became extremely short of breath very quickly and this was severe to switch to a Lexiscan Cardiolite. Baseline heart rate 85 beats per minute. Baseline blood pressure 141/85 mmHg. Baseline 12-lead ECG shows sinus rhythm, normal VR, right bundle branch block pattern, normal ST segments. He received Lexiscan infusion per protocol, no ECG changes. Mild sinus tachycardia. No arrhythmias noted. Nuclear portion will be reported separately. MMODL / IJN: [id number] /
== END | disposition home or self-care (01) ==
LOC: RADNMMAIN 08:02
PROVIDERS: ATTEND Nurse Practitioner Family
DX: I08.3 Combined rheumatic disorders of mitral, aortic and tricuspid valves (principal); R94.39 Abnormal result of other cardiovascular function study; R00.0 Tachycardia, unspecified
CPT/HCPCS: 93017; 93306; 78452; A9500

== ENCOUNTER → 2020-02-13 | Outpatient (CLI) | payer BC ==
--- NOTE | 2020-02-13 14:31 | US ---
EXAMINATION TYPE: US thyroid st tissue head/neck DATE OF EXAM: 02/13/2020 COMPARISON: NONE CLINICAL HISTORY: E06.9 Thyroiditis. Pt states recent abnormal thyroid labs GLAND SIZE: Right Lobe: 4.9 x 1.7 x 1.5 cm Overall Parenchyma: heterogenous Left Lobe: 4.2 x 1.6 x 1.6 cm Overall Parenchyma: heterogeneous Isthmus Thickness: 0.4 cm Bilateral neck scanned, no evidence of lymphadenopathy. Mildly heterogenous thyroid bilaterally with no definite nodule visualized. IMPRESSION: Mildly heterogenous thyroid gland without discrete nodule.
== END | disposition home or self-care (01) ==
LOC: RADUSWWP 13:35
PROVIDERS: ATTEND Family Medicine
DX: E06.9 Thyroiditis, unspecified (principal)
CPT/HCPCS: 76536

== ENCOUNTER → 2020-04-26 | Outpatient (CLI) | payer MEDICARE ==
--- NOTE | 2020-04-26 12:32 | SFUN ---
SLEEP CENTER FOLLOW UP NOTE DATE OF SERVICE: 04/26/2020 This 65-year-old gentleman who has been followed in Sleep Center for treatment of obstructive sleep apnea-hypopnea syndrome. Patient successfully continues to use his CPAP therapy every night. Feels well with the machine. He sleeps well. [place] Sleepiness Scale today is 6, which is in normal range. I checked his CPAP unit. Range of the pressure 4-12, average pressure 9.8 cm of water usage 30/30 nights for more than 4 hours with average usage 9.5 hours per night. Leak is 26 L/minute which is slightly high, but at the same time, apnea-hypopnea index is 3.4, which is absolutely normal range. Medications: Seroquel, Pristiq, Enbrel, Cyclobenzaprine, lamotrigine, simvastatin, Trimax, Sinemet, amantadine, omeprazole, clopidogrel, baby aspirin. PHYSICAL EXAM: Patient in no distress. BP 144/85, HR 81, RR 16, height 5 feet 9-3/4 inches, weight 203.2, BMI 29.3, temperature 98.4. Oxygen saturation at room air 97%. Oropharynx: Low position of soft palate. Mallampati 4. NECK: Supple, no JVD. Thyroid is not palpable. LUNGS: Clear to percussion and to auscultation. Good air exchange. No wheezing or rhonchi. HEART: S1, S2 regular. No murmurs, gallops, or rubs. ABDOMEN: Slightly obese. Soft and nontender. Bowel sounds are present. No organomegaly appreciated. EXTREMITIES: No clubbing or cyanosis. DOCKETING SPECIALIST: Awake, alert, and oriented X3. Cranial nerves 2 to 7 intact. There is no fasciculation or atrophy. noted. No focal deficits observed. IMPRESSION: 1. Obstructive sleep apnea-hypopnea syndrome. Patient demonstrated 100% compliance with treatment benefitting from treatment. 2. History of Parkinson disease. 3. Obesity. 4. Hypertension. 5. Hyperlipidemia. 6. Acid reflux. 7. Benign prostatic hypertrophy. 8. History of anxiety and bipolar disorder. 9. History of ankylosing spondylitis. 10.Status post surgical treatment of nasal septum deviation. 11.Status post cholecystectomy. 12.Status post hernia repair surgery. 13.Status post surgery for rotator cuff. PLAN: 1. Polysomnography for evaluation of patient's breathing during sleep. 2. CPAP/BiPAP titration if sleep study confirms obstructive sleep apnea-hypopnea syndrome. 3. Preferable position during sleep on the side. 4. No driving if patient feels any sleepiness. 5. I will see patient for follow up visit to explain results of testing and following plan. Thank you very much for allowing me to participate in management of your patient. Sincerely, Shad Isidro MD, PhD, FAASM Diplomat of [place] [employer] [place] [employer] Director [facility] [place] MMODL / IJN: [id number] /
== END | disposition home or self-care (01) ==
LOC: SLEEP 10:21
PROVIDERS: ATTEND Internal Medicine
DX: G47.33 Obstructive sleep apnea (adult) (pediatric) (principal); E66.9 Obesity, unspecified; I10 Essential (primary) hypertension; E78.5 Hyperlipidemia, unspecified; K21.9 Gastro-esophageal reflux disease without esophagitis; N40.0 Benign prostatic hyperplasia without lower urinary tract symptoms; Z86.59 Personal history of other mental and behavioral disorders; Z87.39 Personal history of other diseases of the musculoskeletal system and connective tissue; Z99.89 Dependence on other enabling machines and devices; Z90.49 Acquired absence of other specified parts of digestive tract; Z98.890 Other specified postprocedural states

== ENCOUNTER → 2020-11-01 | Outpatient (CLI) | payer MEDICARE ==
--- NOTE | 2020-11-01 20:13 | SFUN ---
SLEEP CENTER FOLLOW UP NOTE DATE OF SERVICE: 11/01/2020 This patient is a 65-year-old gentleman who has been followed in Sleep Center for treatment of obstructive sleep apnea-hypopnea syndrome. The patient continues to use his CPAP equipment every night for the whole night. Occasionally he has snoring with the CPAP, according to his . [place] Sleepiness Scale today is 7, which is normal. I checked his CPAP unit. Range of the pressure is 4 to 12 with average pressure 10.3. Usage is 29/30 nights for more than 4 hours with average usage 9.6 hours per night. Leak is slightly high at 30 L/minute. Apnea-hypopnea index average for the last month is 3.6, for the last night only 0.4, which is normal. MEDICATIONS: 1. Quietapine extended-release once a day. 2. Desvenlafaxine extended-release 100 mg once a day. 3. Enbrel 50 mg once a week. 4. Cyclobenzaprine 10 mg as needed. 5. Lamotrigine 100 mg twice a day. 6. Simvastatin 40 mg once a day. 7. Omeprazole 20 mg once a day. 8. Clopidogrel 75 mg once a day. 9. Aspirin 81 mg once a day. 10.Sinemet 50/200 mg twice a day. PHYSICAL EXAMINATION: GENERAL: A pleasant patient in no distress. VITAL SIGNS: BP 135/86, RR 18, HR 80, height 5 feet 10 inches, weight 210, BMI 29.9, temperature 97.4, oxygen saturation at room air 97%. HEENT: PERRLA, EOMI. Evaluation of oropharynx showed tongue protrudes midline. Extremely low position of soft palate. Mallampati IV. NECK: Supple. No JVD. Thyroid is not palpable. LUNGS: Clear to percussion and to auscultation. Good air exchange. No wheezing or rhonchi. HEART: S1, S2 regular. No murmurs, gallops or rubs. ABDOMEN: Soft and nontender. Bowel sounds are present. No organomegaly appreciated. EXTREMITIES: No clubbing or cyanosis. APPLIED BEHAVIOR SCIENCE SPECIALIST: Awake, alert, and oriented X3. Cranial nerves 2 to 7 intact. There is no fasciculation or atrophy. noted. No focal deficits observed. IMPRESSION: 1. Obstructive sleep apnea-hypopnea syndrome. Patient demonstrated 100% compliance with treatment, benefitting from treatment. Occasional snoring while using CPAP .. 2. History of Parkinson's disease. 3. Obesity. 4. Hypertension. 5. Hyperlipidemia. 6. Acid reflux. 7. Benign prostate hypertrophy. 8. History of anxiety and bipolar disorder. 9. History of ankylosing spondylitis. 10.Status post surgical treatment of nasal septum deviation. 11.Status post cholecystectomy. 12.Status post hernia repair surgery. 13.Status post surgery for rotator cuff problems. PLAN: 1. I will increase maximal CPAP pressure to 13 cm of water to prevent snoring. 2. Patient will continue to use PAP equipment every night for the whole night. 3. Sleep hygiene with regular time in bed for at least 7-1/2 to 8 hours. 4. Precautions related to driving. No driving if feeling sleepiness. 5. I will maintain all necessary prescription for PAP supplies including mask, tube, filters. 6. Watching weight. 7. No driving if feeling sleepiness. 8. Follow-up visit in 6 months or earlier if patient has any problems. Thank you very much for allowing me to participate in the management of your patient. Sincerely, Shad Isidro MD, PhD, FAASM Diplomat of [place] [employer] [employer] Medical Device Sales Consultant of [facility] [place] MMODL / IJN: [id number] /
== END | disposition home or self-care (01) ==
LOC: SLEEP 13:07
PROVIDERS: ATTEND Internal Medicine
DX: G47.33 Obstructive sleep apnea (adult) (pediatric) (principal); I10 Essential (primary) hypertension; E78.5 Hyperlipidemia, unspecified; K21.9 Gastro-esophageal reflux disease without esophagitis; N40.0 Benign prostatic hyperplasia without lower urinary tract symptoms; Z86.59 Personal history of other mental and behavioral disorders; Z90.49 Acquired absence of other specified parts of digestive tract; Z98.890 Other specified postprocedural states; Z86.69 Personal history of other diseases of the nervous system and sense organs; Z79.82 Long term (current) use of aspirin; Z79.899 Other long term (current) drug therapy; Z99.89 Dependence on other enabling machines and devices

== ENCOUNTER 2020-12-16 19:16 | Emergency (ER) | payer MEDICARE ==
[2020-12-16 20:07] VITALS: TEMP 98.1
--- NOTE | 2020-12-16 20:48 | ED ---
General Adult HPI - General Chief complaint: Headache Stated complaint: Covid Exposure, Headache, Weakness Time Seen by Provider: 12/16/20 20:35 Source: patient Mode of arrival: wheelchair Limitations: no limitations - History of Present Illness Initial comments: 65-year-old male patient presents to the emergency department today for evaluation of generalized weakness, rubbery legs. States he is also been having some headaches. Symptoms started 2-3 days ago. He was concerned he had COVID- 19. Denies any fever but states he has been having chills. Denies any hematuria, dysuria, urinary urgency, urinary frequency. Denies any focal weakness or new onset numbness or tingling. Denies any neck pain or stiffness. Denies any new medications. He states his been eating and drinking without difficulty. Denies vomiting or diarrhea. Patient denies any recent rash, abdominal pain, constipation, back pain, hematuria, dysuria, urinary urgency, urinary frequency, visual changes, or any other complaints. - Related Data Home Medications Medication Instructions Recorded Confirmed Etanercept [Enbrel] 50 mg SQ Q7DAYS 09/22/14 10/20/17 Simvastatin [Zocor] 40 mg PO DAILY 09/22/14 10/20/17 lamoTRIgine [LaMICtal] 150 mg PO BID 09/22/14 10/20/17 Metoprolol Succinate [Toprol XL] 25 mg PO DAILY 10/07/16 10/20/17 clonazePAM [KlonoPIN] 0.5 mg PO BID PRN 10/07/16 10/20/17 Citalopram Hydrobromide [CeleXA] 40 mg PO DAILY 10/20/17 10/20/17 Previous Rx's Medication Instructions Recorded hydrOXYzine pamoate [Vistaril] 50 mg PO TID #30 capsule 10/20/17 Allergies Allergy/AdvReac Type Severity Reaction Status Date / Time hydrocodone bitartrate Allergy Itching Verified 12/16/20 20:08 [From Vicodin] iodine Allergy Diarrhea Verified 12/16/20 20:08 Penicillins Allergy Unknown Verified 12/16/20 20:08 shellfish derived Allergy Diarrhea Verified 12/16/20 20:08 Review of Systems ROS Statement: Those systems with pertinent positive or pertinent negative responses have been documented in the HPI. ROS Other: All systems not noted in ROS Statement are negative. Past Medical History Past Medical History: Coronary Artery Disease (CAD), GERD/Reflux, Hyperlipidemia, Hypertension, Musculoskeletal Disorder, Prostate Disorder, Sleep Apnea/CPAP/BIPAP Additional Past Medical History / Comment(s): SLEEP APNEA (DOES NOT USE MACHINE), BIPOLAR, ARTHRITIS, PAST HX OF CROHNS, ENLARGED PROSTATE, ANKYLOSING SPONDYLITIS, RLS, NEUROPATHY, STATES OCCASIONAL DIZZINESS. parkinsons History of Any Multi-Drug Resistant Organisms: None Reported Past Surgical History: Cholecystectomy, Heart Catheterization With Stent, Hernia Repair Additional Past Surgical History / Comment(s): lt ear surgery, lt foot surgery, rt rotator cuff surgery, nasal surgeries x2, colonoscopies Past Anesthesia/Blood Transfusion Reactions: No Reported Reaction Past Psychological History: Anxiety, Bipolar, Depression Smoking Status: Never smoker Past Alcohol Use History: None Reported Past Drug Use History: None Reported - Past Family History Daughter(s) Additional Family Medical History / Comment(s): MS Father Family Medical History: Cancer General Exam Limitations: no limitations General appearance: alert, in no apparent distress, other (This is a well- developed, well-nourished adult male patient in no acute distress. Vital signs upon presentation are temperature 98.1F, pulse 84, respirations 20, blood pressure 150/99, pulse ox 96% on room air.) Eye exam: Present: normal appearance, PERRL, EOMI. Absent: scleral icterus, conjunctival injection, nystagmus, periorbital swelling ENT exam: Present: normal exam, normal oropharynx, mucous membranes moist Respiratory exam: Present: normal lung sounds bilaterally. Absent: respiratory distress, wheezes, rales, rhonchi, stridor Cardiovascular Exam: Present: regular rate, normal rhythm, normal heart sounds. Absent: systolic murmur, diastolic murmur, rubs, gallop, clicks GI/Abdominal exam: Present: soft, normal bowel sounds. Absent: distended, tenderness, guarding, rebound, rigid Neurological exam: Present: alert, oriented X3, CN II-XII intact Psychiatric exam: Present: normal affect, normal mood Skin exam: Present: warm, dry, intact, normal color. Absent: rash Course Vital Signs 12/16/20 12/17/20 20:02 00:01 Temperature 98.1 F Pulse Rate 84 83 Respiratory 20 18 Rate Blood Pressure 150/99 148/93 O2 Sat by Pulse 96 97 Oximetry EKG Findings - EKG Comments: EKG Findings:: EKG obtained at 2148 shows normal sinus rhythm with a ventricular rate of 81, para 160, QR latter-day 118, QT 386, QTc 448. No evidence of ST elevation or depression. Medical Decision Making - Medical Decision Making 65-year-old male patient presents the emergency department today for evaluation of generalized weakness and chills. Physical examination is unremarkable. Is neurologically intact no focal deficits. Lungs clear to auscultation with good air movement. Labs reviewed and are unremarkable. EKG was unremarkable. He declined IV fluids. Tested negative for COVID-19. He'll be discharged. His primary care physician for recheck in 1-2 days. Return parameters discussed in detail. He verbalizes understanding and agrees with this plan. Case discussed my attending Dr. Torrez. - Lab Data Result diagrams: 12/16/20 22:10 12/16/20 22:10 Lab Results 12/16/20 12/16/20 12/16/20 Range/Units 20:02 22:10 22:10 WBC 7.8 (3.8-10.6) k/uL RBC 4.76 (4.30-5.90) m/uL Hgb 15.3 (13.0-17.5) gm/dL Hct 44.4 (39.0-53.0) % MCV 93.2 (80.0-100.0) fL MCH 32.1 (25.0-35.0) pg MCHC 34.5 (31.0-37.0) g/dL RDW 13.0 (11.5-15.5) % Plt Count 214 (150-450) k/uL MPV 6.4 Neutrophils % 58 % Lymphocytes % 29 % Monocytes % 6 % Eosinophils % 4 % Basophils % 1 % Neutrophils # 4.5 (1.3-7.7) k/uL Lymphocytes # 2.3 (1.0-4.8) k/uL Monocytes # 0.5 (0-1.0) k/uL Eosinophils # 0.3 (0-0.7) k/uL Basophils # 0.1 (0-0.2) k/uL PT 10.2 (9.0-12.0) sec INR 0.9 (<1.2) APTT 24.4 (22.0-30.0) sec Sodium (137-145) mmol/L Potassium (3.5-5.1) mmol/L Chloride (98-107) mmol/L Carbon Dioxide (22-30) mmol/L Anion Gap mmol/L BUN (9-20) mg/dL Creatinine (0.66-1.25) mg/dL Est GFR (CKD-EPI)AfAm (>60 ml/min/1.73 sqM) Est GFR (CKD-EPI)NonAf (>60 ml/min/1.73 sqM) Glucose (74-99) mg/dL Plasma Lactic Acid Kimo (0.7-2.0) mmol/L Calcium (8.4-10.2) mg/dL Total Bilirubin (0.2-1.3) mg/dL AST (17-59) U/L ALT (4-49) U/L Alkaline Phosphatase (38-126) U/L Troponin I (0.000-0.034) ng/mL Total Protein (6.3-8.2) g/dL Albumin (3.5-5.0) g/dL Urine Color Urine Appearance (Clear) Urine pH (5.0-8.0) Ur Specific [place] (1.001-1.035) Urine Protein (Negative) Urine Glucose (UA) (Negative) Urine Ketones (Negative) Urine Blood (Negative) Urine Nitrite (Negative) Urine Bilirubin (Negative) Urine Urobilinogen (<2.0) mg/dL Ur Leukocyte Esterase (Negative) Urine RBC (0-5) /hpf Urine WBC (0-5) /hpf Urine Mucus (None) /hpf Coronavirus (PCR) Not Detected (Not Detectd) 12/16/20 12/16/20 12/16/20 Range/Units 22:10 22:10 22:10 WBC (3.8-10.6) k/uL RBC (4.30-5.90) m/uL Hgb (13.0-17.5) gm/dL Hct (39.0-53.0) % MCV (80.0-100.0) fL MCH (25.0-35.0) pg MCHC (31.0-37.0) g/dL RDW (11.5-15.5) % Plt Count (150-450) k/uL MPV Neutrophils % % Lymphocytes % % Monocytes % % Eosinophils % % Basophils % % Neutrophils # (1.3-7.7) k/uL Lymphocytes # (1.0-4.8) k/uL Monocytes # (0-1.0) k/uL Eosinophils # (0-0.7) k/uL Basophils # (0-0.2) k/uL PT (9.0-12.0) sec INR (<1.2) APTT (22.0-30.0) sec Sodium 138 (137-145) mmol/L Potassium 4.8 (3.5-5.1) mmol/L Chloride 103 (98-107) mmol/L Carbon Dioxide 24 (22-30) mmol/L Anion Gap 11 mmol/L BUN 22 H (9-20) mg/dL Creatinine 1.14 (0.66-1.25) mg/dL Est GFR (CKD-EPI)AfAm 78 (>60 ml/min/1.73 sqM) Est GFR (CKD-EPI)NonAf 68 (>60 ml/min/1.73 sqM) Glucose 106 H (74-99) mg/dL Plasma Lactic Acid Kimo 0.9 (0.7-2.0) mmol/L Calcium 9.4 (8.4-10.2) mg/dL Total Bilirubin 0.7 (0.2-1.3) mg/dL AST 40 (17-59) U/L ALT 6 (4-49) U/L Alkaline Phosphatase 68 (38-126) U/L Troponin I <0.012 (0.000-0.034) ng/mL Total Protein 8.1 (6.3-8.2) g/dL Albumin 4.6 (3.5-5.0) g/dL Urine Color Urine Appearance (Clear) Urine pH (5.0-8.0) Ur Specific [place] (1.001-1.035) Urine Protein (Negative) Urine Glucose (UA) (Negative) Urine Ketones (Negative) Urine Blood (Negative) Urine Nitrite (Negative) Urine Bilirubin (Negative) Urine Urobilinogen (<2.0) mg/dL Ur Leukocyte Esterase (Negative) Urine RBC (0-5) /hpf Urine WBC (0-5) /hpf Urine Mucus (None) /hpf Coronavirus (PCR) (Not Detectd) 12/16/20 Range/Units 22:17 WBC (3.8-10.6) k/uL RBC (4.30-5.90) m/uL Hgb (13.0-17.5) gm/dL Hct (39.0-53.0) % MCV (80.0-100.0) fL MCH (25.0-35.0) pg MCHC (31.0-37.0) g/dL RDW (11.5-15.5) % Plt Count (150-450) k/uL MPV Neutrophils % % Lymphocytes % % Monocytes % % Eosinophils % % Basophils % % Neutrophils # (1.3-7.7) k/uL Lymphocytes # (1.0-4.8) k/uL Monocytes # (0-1.0) k/uL Eosinophils # (0-0.7) k/uL Basophils # (0-0.2) k/uL PT (9.0-12.0) sec INR (<1.2) APTT (22.0-30.0) sec Sodium (137-145) mmol/L Potassium (3.5-5.1) mmol/L Chloride (98-107) mmol/L Carbon Dioxide (22-30) mmol/L Anion Gap mmol/L BUN (9-20) mg/dL Creatinine (0.66-1.25) mg/dL Est GFR (CKD-EPI)AfAm (>60 ml/min/1.73 sqM) Est GFR (CKD-EPI)NonAf (>60 ml/min/1.73 sqM) Glucose (74-99) mg/dL Plasma Lactic Acid Kimo (0.7-2.0) mmol/L Calcium (8.4-10.2) mg/dL Total Bilirubin (0.2-1.3) mg/dL AST (17-59) U/L ALT (4-49) U/L Alkaline Phosphatase (38-126) U/L Troponin I (0.000-0.034) ng/mL Total Protein (6.3-8.2) g/dL Albumin (3.5-5.0) g/dL Urine Color Yellow Urine Appearance Clear (Clear) Urine pH 6.5 (5.0-8.0) Ur Specific [place] 1.018 (1.001-1.035) Urine Protein Negative (Negative) Urine Glucose (UA) Negative (Negative) Urine Ketones Negative (Negative) Urine Blood Moderate H (Negative) Urine Nitrite Negative (Negative) Urine Bilirubin Negative (Negative) Urine Urobilinogen 2.0 (<2.0) mg/dL Ur Leukocyte Esterase Negative (Negative) Urine RBC 26 H (0-5) /hpf Urine WBC 2 (0-5) /hpf Urine Mucus Rare H (None) /hpf Coronavirus (PCR) (Not Detectd) - EKG Data -: EKG Interpreted by Me EKG Comments: EKG obtained at 2148 shows sinus rhythm with ventricular rate of 81, NH interval 160, QRS duration 118, QT 386, QTc 448. No evidence of ST elevation or depression. - Radiology Data Radiology results: report reviewed, image reviewed Two-view x-ray of the chest is obtained. Report was reviewed in its entirety. Impression by Dr. Price shows mild right basilar opacity, suggestive of atelectasis in the absence of fever. Disposition Clinical Impression: Weakness Disposition: HOME SELF-CARE Condition: Good Instructions (If sedation given, give patient instructions): Weakness (ED) Additional Instructions: Increase fluids. Risperdal the primary care physician for recheck in 1-2 days. Return to the emergency department for any new, worsening, or concerning symptoms. Is patient prescribed a controlled substance at d/c from ED?: No Referrals: Gen Hinkle MD [Primary Care Provider] - 1-2 days Time of Disposition: 23:38
--- NOTE | 2020-12-16 22:09 | XR ---
EXAMINATION TYPE: XR chest 2V DATE OF EXAM: 12/16/2020 COMPARISON: NONE HISTORY: Weakness. TECHNIQUE: Frontal and lateral views of the chest are obtained. FINDINGS: There is mild right basilar platelike opacity. No pleural effusion, or pneumothorax seen. The cardiac silhouette size is within normal limits. The osseous structures are intact. IMPRESSION: Mild right basilar opacity, suggestive of atelectasis in the absence of fever.
[2020-12-16 22:25] LABS: Basophils # (A) 0.1 k/uL (0-0.2); Basophils % (A) 1 %; Eosinophils # (A) 0.3 k/uL (0-0.7); Eosinophils % (A) 4 %; HCT 44.4 % (39.0-53.0); HGB 15.3 gm/dL (13.0-17.5); Lymphocytes # (A) 2.3 k/uL (1.0-4.8); Lymphocytes % (A) 29 %; MCH 32.1 pg (25.0-35.0); MCHC 34.5 g/dL (31.0-37.0); MCV 93.2 fL (80.0-100.0); Mean Platelet Volume 6.4; Monocytes # (A) 0.5 k/uL (0-1.0); Monocytes % (A) 6 %; Neutrophils # (A) 4.5 k/uL (1.3-7.7); Neutrophils % (A) 58 %; Platelet Count 214 k/uL (150-450); RBC 4.76 m/uL (4.30-5.90); WBC 7.8 k/uL (3.8-10.6)
[2020-12-16 22:39] LABS: INR 0.9 (<1.2); Partial Thromboplastin Time 24.4 sec (22.0-30.0); Prothrombin Time 10.2 sec (9.0-12.0)
[2020-12-16 22:40] LABS: Albumin 4.6 g/dL (3.5-5.0); Calcium 9.4 mg/dL (8.4-10.2); Potassium 4.8 mmol/L (3.5-5.1); Total Bilirubin 0.7 mg/dL (0.2-1.3); Total Protein 8.1 g/dL (6.3-8.2)
[2020-12-16 22:48] LABS: Appearance,Urine Clear (Clear); Bilirubin,Urine Negative (Negative); Blood,Urine Moderate (Negative); Color,Urine Yellow; Glucose,Urine (UA) Negative (Negative); Ketones,Urine Negative (Negative); Leukocyte Esterase,Urine Negative (Negative); Mucus,Urine Rare /hpf; Nitrite,Urine Negative (Negative); PH, Urine 6.5 (5.0-8.0); Protein,Urine Negative (Negative); RBC,Urine 26 /hpf (0-5); Specific Gravity,Urine 1.018 (1.001-1.035); WBC,Urine 2 /hpf (0-5)
[2020-12-17 00:03] VITALS: BP 148/93; PULSE 83; RESP 18
== END 2020-12-17 00:03 | disposition home or self-care (01) ==
LOC: EC 19:16
DX: R53.1 Weakness (principal); R51.9 Headache, unspecified; I25.10 Atherosclerotic heart disease of native coronary artery without angina pectoris; I10 Essential (primary) hypertension; E78.5 Hyperlipidemia, unspecified; F41.9 Anxiety disorder, unspecified; F31.9 Bipolar disorder, unspecified; G47.30 Sleep apnea, unspecified; Z79.899 Other long term (current) drug therapy; Z88.0 Allergy status to penicillin; Z88.5 Allergy status to narcotic agent; Z91.048 Other nonmedicinal substance allergy status; Z91.013 Allergy to seafood; Z95.5 Presence of coronary angioplasty implant and graft; Z99.89 Dependence on other enabling machines and devices
CPT/HCPCS: 36415; 71046; 80053; 81001; 83605; 84484; 85025; 85610; 85730; 87635; 93005; 99284

== ENCOUNTER 2021-03-19 18:22 | Emergency (ER) | payer MEDICARE ==
[2021-03-19 18:48] VITALS: RESP 18; TEMP 97.5
[2021-03-19 19:28] LABS: Basophils % (A) 1 %; Eosinophils # (A) 0.2 k/uL (0-0.7); Eosinophils % (A) 3 %; HCT 43.6 % (39.0-53.0); HGB 14.3 gm/dL (13.0-17.5); Lymphocytes # (A) 2.1 k/uL (1.0-4.8); Lymphocytes % (A) 27 %; MCHC 32.9 g/dL (31.0-37.0); MCV 94.4 fL (80.0-100.0); Mean Platelet Volume 6.4; Monocytes # (A) 0.5 k/uL (0-1.0); Monocytes % (A) 7 %; Neutrophils # (A) 4.6 k/uL (1.3-7.7); Neutrophils % (A) 59 %; Platelet Count 202 k/uL (150-450); RBC 4.62 m/uL (4.30-5.90); RDW 13.5 % (11.5-15.5); WBC 7.7 k/uL (3.8-10.6)
[2021-03-19 19:48] LABS: INR 0.9 (<1.2); Prothrombin Time 10.1 sec (9.0-12.0)
[2021-03-19 19:49] LABS: ALT 6 U/L (4-49); AST 32 U/L (17-59); African American GFR (CKD) >90 (>60 ml/min/1.73 sqM); Albumin 4.1 g/dL (3.5-5.0); Alkaline Phosphatase 70 U/L (38-126); Anion Gap 11 mmol/L; Blood Urea Nitrogen 19 mg/dL (9-20); Calcium 9.1 mg/dL (8.4-10.2); Carbon Dioxide 23 mmol/L (22-30); Chloride 107 mmol/L (98-107); Glucose 103 mg/dL (74-99); Non-African American GFR(CKD) 83 (>60 ml/min/1.73 sqM); Potassium 4.2 mmol/L (3.5-5.1); Sodium 141 mmol/L (137-145); Total Bilirubin 0.7 mg/dL (0.2-1.3); Total Protein 7.2 g/dL (6.3-8.2)
[2021-03-19 19:50] LABS: Partial Thromboplastin Time 20.9 sec (22.0-30.0)
[2021-03-19] MEDS ORDERED: FAMOTIDINE 20 MG/2 ML VIAL IV STA (19:58)
[2021-03-19] MEDS ORDERED: methylPREDNISolone SOD SUCCI 125 MG/2 ML VIAL IV STA (19:58)
[2021-03-19] MEDS ORDERED: diphenhydrAMINE 50 MG/ML 1 ML VIAL IVP STA (19:58)
--- NOTE | 2021-03-19 19:59 | ED ---
General Adult HPI - General Source: patient, RN notes reviewed, old records reviewed Mode of arrival: wheelchair Limitations: no limitations <Curry Ball - Last Filed: 03/19/21 21:33> <Sachin Torrez - Last Filed: 03/19/21 22:41> - General Chief complaint: Fall Stated complaint: Fall Time Seen by Provider: 03/19/21 18:30 - History of Present Illness Initial comments: Rib pain and right upper quadrant abdominal pain. Patient states she supposed to 5 days on the ninth and ever since then he's had pain but he didn't want to come into the hospital until he was back home. Patient states he has pain with deep breathing. Patient denies any fever chills. Patient denies any vomiting diarrhea. Patient states he did not hit his head he does not have any neck pain he has no numbness or weakness and he has no other complaints at this time complaints are just of the lower ribs on the right as well as the right upper quadrant. (Curry Ball) - Related Data Home Medications Medication Instructions Recorded Confirmed Etanercept [Enbrel] 50 mg SQ Q7DAYS 09/22/14 03/19/21 Simvastatin [Zocor] 40 mg PO DAILY 09/22/14 03/19/21 ALPRAZolam [Xanax] 0.25 mg PO DAILY PRN 03/19/21 03/19/21 Aspirin EC [Ecotrin Low Dose] 81 mg PO DAILY 03/19/21 03/19/21 Carbidopa-Levodopa ER 50-200Mg 1 tab PO BID 03/19/21 03/19/21 [Sinemet ER 50-200] Clopidogrel Bisulfate [Plavix] 75 mg PO DAILY 03/19/21 03/19/21 Cyclobenzaprine [Flexeril] 10 mg PO HS PRN 03/19/21 03/19/21 Desvenlafaxine [Pristiq ER] 100 mg PO DAILY 03/19/21 03/19/21 Omeprazole 20 mg PO DAILY 03/19/21 03/19/21 QUEtiapine FUMARATE [SEROquel XR] 300 mg PO HS 03/19/21 03/19/21 QUEtiapine [SEROquel] 100 mg PO HS 03/19/21 03/19/21 Trimix Injection 20 units SQ DAILY PRN 03/19/21 03/19/21 amantadine HCL [Amantadine] 100 mg PO TID 03/19/21 03/19/21 lamoTRIgine [LaMICtal] 100 mg PO BID 03/19/21 03/19/21 Previous Rx's Medication Instructions Recorded traMADol HCl [Ultram] 50 mg PO Q6H PRN #20 tab 03/19/21 Allergies Allergy/AdvReac Type Severity Reaction Status Date / Time hydrocodone bitartrate Allergy Itching Verified 03/19/21 18:48 [From Vicodin] iodine Allergy Diarrhea Verified 03/19/21 18:48 Penicillins Allergy Unknown Verified 03/19/21 18:48 shellfish derived Allergy Diarrhea Verified 03/19/21 18:48 Review of Systems ROS Other: All systems not noted in ROS Statement are negative. <Curry Ball - Last Filed: 03/19/21 21:33> ROS Other: All systems not noted in ROS Statement are negative. <Sachin Torrez - Last Filed: 03/19/21 22:41> ROS Statement: Those systems with pertinent positive or pertinent negative responses have been documented in the HPI. Past Medical History Past Medical History: Coronary Artery Disease (CAD), GERD/Reflux, Hyperlipidemia, Hypertension, Musculoskeletal Disorder, Prostate Disorder, Sleep Apnea/CPAP/BIPAP Additional Past Medical History / Comment(s): SLEEP APNEA (DOES NOT USE MACHINE), BIPOLAR, ARTHRITIS, PAST HX OF CROHNS, ENLARGED PROSTATE, ANKYLOSING SPONDYLITIS, RLS, NEUROPATHY, STATES OCCASIONAL DIZZINESS. parkinsons History of Any Multi-Drug Resistant Organisms: None Reported Past Surgical History: Cholecystectomy, Heart Catheterization With Stent, Hernia Repair Additional Past Surgical History / Comment(s): lt ear surgery, lt foot surgery, rt rotator cuff surgery, nasal surgeries x2, colonoscopies Past Anesthesia/Blood Transfusion Reactions: No Reported Reaction Past Psychological History: Anxiety, Bipolar, Depression Smoking Status: Never smoker Past Alcohol Use History: None Reported Past Drug Use History: None Reported - Past Family History Daughter(s) Additional Family Medical History / Comment(s): MS Father Family Medical History: Cancer <Curry Ball - Last Filed: 03/19/21 21:33> General Exam Limitations: no limitations <Curry Ball - Last Filed: 03/19/21 21:33> - General Exam Comments Initial Comments: GENERAL: Patient is well-developed and well-nourished. Patient is nontoxic and well- hydrated and is in mild distress. ENT: Neck is soft and supple. No significant lymphadenopathy is noted. Oropharynx is clear. Moist mucous membranes. Neck has full range of motion without elicit ing any pain. EYES: The sclera were anicteric and conjunctiva were pink and moist. Extraocular m ovements were intact and pupils were equal round and reactive to light. Eyelids were unremarkable. PULMONARY: Unlabored respirations. Good breath sounds bilaterally. No audible rales rhonchi or wheezing was noted. CARDIOVASCULAR: There is a regular rate and rhythm without any murmurs gallops or rubs. Patient is very tender in the right lateral lower ribs as well as right upper quadrant. ABDOMEN: Right upper quadrant abdominal pain SKIN: Skin is clear with no lesions or rashes and otherwise unremarkable. NEUROLOGIC: Patient is alert and oriented x3. Cranial nerves II through XII are grossly intact. Motor and sensory are also intact. Normal speech, volume and content. Symmetrical smile. MUSCULOSKELETAL: Normal extremities with adequate strength and full range of motion. LYMPHATICS: No significant lymphadenopathy is noted PSYCHIATRIC: Normal psychiatric evaluation. (Curry Ball) Course Vital Signs 03/19/21 03/19/21 03/19/21 18:44 19:32 21:01 Temperature 97.5 F L Pulse Rate 93 80 75 Respiratory 18 18 18 Rate Blood Pressure 139/88 171/100 198/106 O2 Sat by Pulse 97 98 95 Oximetry 03/19/21 03/19/21 03/19/21 21:31 21:33 22:01 Temperature Pulse Rate 73 Respiratory 18 Rate Blood Pressure 185/107 183/109 189/111 O2 Sat by Pulse 97 Oximetry 03/19/21 22:30 Temperature Pulse Rate Respiratory Rate Blood Pressure 183/104 O2 Sat by Pulse Oximetry Medical Decision Making - Lab Data Result diagrams: 03/19/21 19:14 03/19/21 19:14 <Curry Ball - Last Filed: 03/19/21 21:33> - Lab Data Result diagrams: 03/19/21 19:14 03/19/21 19:14 <Sachin Torrez - Last Filed: 03/19/21 22:41> - Medical Decision Making Dr. Blankenship will be taking over the care of this patient at 9 PM (Curry Ball) - Lab Data Lab Results 03/19/21 03/19/21 03/19/21 Range/Units 19:14 19:14 19:14 WBC 7.7 (3.8-10.6) k/uL RBC 4.62 (4.30-5.90) m/uL Hgb 14.3 (13.0-17.5) gm/dL Hct 43.6 (39.0-53.0) % MCV 94.4 (80.0-100.0) fL MCH 31.0 (25.0-35.0) pg MCHC 32.9 (31.0-37.0) g/dL RDW 13.5 (11.5-15.5) % Plt Count 202 (150-450) k/uL MPV 6.4 Neutrophils % 59 % Lymphocytes % 27 % Monocytes % 7 % Eosinophils % 3 % Basophils % 1 % Neutrophils # 4.6 (1.3-7.7) k/uL Lymphocytes # 2.1 (1.0-4.8) k/uL Monocytes # 0.5 (0-1.0) k/uL Eosinophils # 0.2 (0-0.7) k/uL Basophils # 0.0 (0-0.2) k/uL PT 10.1 (9.0-12.0) sec INR 0.9 (<1.2) APTT 20.9 L (22.0-30.0) sec Sodium 141 (137-145) mmol/L Potassium 4.2 (3.5-5.1) mmol/L Chloride 107 (98-107) mmol/L Carbon Dioxide 23 (22-30) mmol/L Anion Gap 11 mmol/L BUN 19 (9-20) mg/dL Creatinine 0.96 (0.66-1.25) mg/dL Est GFR (CKD-EPI)AfAm >90 (>60 ml/min/1.73 sqM) Est GFR (CKD-EPI)NonAf 83 (>60 ml/min/1.73 sqM) Glucose 103 H (74-99) mg/dL Calcium 9.1 (8.4-10.2) mg/dL Total Bilirubin 0.7 (0.2-1.3) mg/dL AST 32 (17-59) U/L ALT 6 (4-49) U/L Alkaline Phosphatase 70 (38-126) U/L Total Protein 7.2 (6.3-8.2) g/dL Albumin 4.1 (3.5-5.0) g/dL Disposition <QuinnCurry - Last Filed: 03/19/21 21:33> Is patient prescribed a controlled substance at d/c from ED?: Yes When asked, does pt state using other controlled substances?: No If prescribed controlled substance>3 days was MAPS reviewed?: Prescribed <3 Days If opioid is for acute pain is fill amount 7 days or less?: Yes If Rx opioid, was Start Talking consent form obtained?: Yes <Sachin Torrez - Last Filed: 03/19/21 22:41> Clinical Impression: Fall, Rib fractures Disposition: HOME SELF-CARE Condition: Good Instructions (If sedation given, give patient instructions): Rib Fracture (ED) Prescriptions: traMADol HCl [Ultram] 50 mg PO Q6H PRN #20 tab PRN Reason: Pain Referrals: Gen Hinkle MD [Primary Care Provider] - 1-2 days
[2021-03-19] MEDS ORDERED: HYDROmorphone 0.5 MG/0.5 ML SYRINGE IVP STA (21:03)
[2021-03-19 21:33] VITALS: PULSE 73
[2021-03-19] MEDS ORDERED: hydrALAZINE HCL 20 MG/ML 1 ML VIAL IVP STA (21:36)
--- NOTE | 2021-03-19 21:55 | CT ---
EXAMINATION TYPE: CT ChestAbdPelvis w con DATE OF EXAM: 03/19/2021 COMPARISON: None available. HISTORY: right sided chest and abdominal pain following fall CT DLP: 1349.4 mGycm Automated exposure control for dose reduction was used. CONTRAST: CT scan of the chest, abdomen and pelvis is performed without Oral Contrast and with IV Contrast, pat ient injected with 100 mL of Isovue 300. FINDINGS: LUNGS: The lungs are grossly clear, there is no concerning parenchymal mass or nodule identified. T here is no pleural effusion or pneumothorax seen. The tracheobronchial tree is patent. MEDIASTINUM: There are no greater than 1 cm hilar or mediastinal lymph nodes. No pericardial effusi on is seen. Moderate to advanced coronary atherosclerotic disease. OTHER: No additional significant abnormality is seen. LIVER/GB: No significant abnormality is appreciated. PANCREAS: No significant abnormality is seen. SPLEEN: No significant abnormality is seen. ADRENALS: No significant abnormality is seen. KIDNEYS: No acute abnormality is seen. A 5.5 cm simple right renal cyst present. Also few simple left renal cysts measuring up to 1.1 cm. BOWEL: No significant abnormality is seen. REPRODUCTIVE ORGANS: No gross abnormality seen. LYMPH NODES: No greater than 1 cm abdominal or pelvic lymph nodes are appreciated. OSSEOUS STRUCTURES: Chronic appearing right ninth and left third through sixth rib fractures. Otherwi se no acute osseous abnormality. OTHER: Prior left inguinal hernia repair noted. IMPRESSION: Chronic-appearing bilateral rib fractures. Otherwise no acute intrathoracic or intra-abdominal/pelvic abnormalities.
[2021-03-19 23:03] VITALS: BP 174/99
== END 2021-03-19 23:06 | disposition home or self-care (01) ==
LOC: EC 18:22
DX: S22.31XA Fracture of one rib, right side, initial encounter for closed fracture (principal); I10 Essential (primary) hypertension; E78.5 Hyperlipidemia, unspecified; I25.10 Atherosclerotic heart disease of native coronary artery without angina pectoris; K21.9 Gastro-esophageal reflux disease without esophagitis; F31.9 Bipolar disorder, unspecified; F41.9 Anxiety disorder, unspecified; Z79.82 Long term (current) use of aspirin; Z79.899 Other long term (current) drug therapy; Z88.0 Allergy status to penicillin; Z88.5 Allergy status to narcotic agent; W18.2XXA Fall in (into) shower or empty bathtub, initial encounter
CPT/HCPCS: 36415; 80053; 85025; 85610; 85730; 71260; 74177; 96374; 96375 ×4; 99284; J0360; J1200; J2930; J1170; Q9967

== ENCOUNTER → 2021-05-30 | Outpatient (CLI) | payer MEDICARE ==
--- NOTE | 2021-05-30 21:15 | SFUN ---
SLEEP CENTER FOLLOW UP NOTE DATE OF SURGERY: 05/30/2021 INTERVAL HISTORY: 66-year-old gentleman has been followed in Sleep Center for treatment of obstructive sleep apnea-hypopnea syndrome. He continued to use the CPAP equipment every night. Recently had an episode when his humidifier did not work well. He did talk to [employer] and they adjusted humidifier. Presently, feels better. Harrold Sleepiness Scale today is 9. I checked his CPAP unit. Range of the pressure 4-13, average 9.6. Usage 30/30 nights for more than 4 hours. Average 9.9 hours per night, very good compliance. Leak is 25 L/minute. Apnea-hypopnea index only 1.9. Totally normal. I taught the patient how to adjust heated humidifier. He should be able to do it himself if necessary to adjust it and also he may change temperature in his heated tube. MEDICATIONS: L-thyroxine 150 mcg once a day, extended release, Desvenlafaxine extended release 100 mg once a day, Enbrel 50 mg once a week, Cyclobenzaprine 10 mg as needed, lamotrigine 100 mg one tablet twice a day, simvastatin 40 mg one tablet once a day, 20 units is needed. Amantadine 100 mg t.i.d., omeprazole 20 mg once a day, clopidogrel 75 mg once a day, aspirin 81 mg once a day, Sinemet 50-200 mg twice a day. PHYSICAL EXAMINATION: GENERAL: Patient in no distress. BP 156/92. HR 85. RR 12, height 5 feet 10-1/2, weight 208.4, temperature 97.7, oxygen saturation at room air 97%. BMI 29.4. Oropharynx extremely low position of soft palate, Mallampati 4. NECK: Supple, no JVD. Thyroid is not palpable. LUNGS: Clear to percussion and to auscultation. Good air exchange. No wheezing or rhonchi. HEART: S1, S2 regular. No murmurs, gallops, or rubs. ABDOMEN: Soft and nontender. Bowel sounds are present. No organomegaly appreciated. EXTREMITIES: No clubbing or cyanosis. CORPSMAN: Awake, alert, and oriented X3. Cranial nerves 2 to 7 intact. There is no fasciculation or atrophy. noted. No focal deficits observed. IMPRESSION: 1. Obstructive sleep apnea-hypopnea syndrome patient demonstrated 100% compliance with treatment, benefitting from treatment. 2. History of Parkinson's disease. 3. Hypertension. 4. Hyperlipidemia. 5. Acid reflux. 6. Benign prostatic hypertrophy. 7. History of anxiety and bipolar disorder. 8. History of ankylosing spondylitis. 9. Status post cholecystectomy. 10.Status post hernia repair surgery. 11.Status post surgery for rotator cuff problems. 12.Status post surgical treatment of nasal septum deviation. PLAN: 1. Patient will continue to use PAP equipment every night for the whole night. 2. Sleep hygiene with regular time in bed for at least 7-1/2 to 8 hours. 3. Precautions related to driving. No driving if feeling sleepiness. 4. I will maintain all necessary prescription for PAP supplies including mask, tube, filters. 5. Watching weight. 6. Follow-up visit in 6 months or earlier if patient has any problems. I spent with the patient and documentation 30 minutes. Thank you very much for allowing me to participate in management of your patient. Sincerely, Shad Isidro MD, PhD, FAASM Diplomat of [employer] Sleep Medicine Board of [employer] of [facility] [place] MMODL / IJN: [id number] /
== END ==
LOC: SLEEP 13:06
PROVIDERS: ATTEND Internal Medicine
DX: G47.33 Obstructive sleep apnea (adult) (pediatric) (principal); G20 Parkinson's disease; I10 Essential (primary) hypertension; E78.5 Hyperlipidemia, unspecified; K21.9 Gastro-esophageal reflux disease without esophagitis; N40.0 Benign prostatic hyperplasia without lower urinary tract symptoms; F41.9 Anxiety disorder, unspecified; F32.9 Major depressive disorder, single episode, unspecified; Z90.49 Acquired absence of other specified parts of digestive tract; Z98.890 Other specified postprocedural states; Z79.899 Other long term (current) drug therapy; Z88.5 Allergy status to narcotic agent; Z91.041 Radiographic dye allergy status; Z88.0 Allergy status to penicillin; Z91.013 Allergy to seafood

== ENCOUNTER → 2021-11-27 | Outpatient (CLI) | payer MEDICARE ==
--- NOTE | 2021-11-27 19:30 | SFUN ---
SLEEP CENTER FOLLOW UP NOTE DATE OF SERVICE: 11/27/2021 This 66-year-old gentleman has been followed in Sleep Center for treatment of obstructive sleep apnea-hypopnea syndrome. The patient continues to use his CPAP equipment every night for the whole night, getting his CPAP supplies on time. I checked his CPAP unit. Range of the pressure is 4 to 13. Usage is 30/30 nights for more than 4 hours, average 10 hours per night. Average pressure is 10 cm of water. Leak is borderline, 23 L/minute. Apnea-hypopnea index is 1.7, which is in normal range. MEDICATIONS: 1. Seroquel 300 mg once a day. 2. Pristiq 100 mg once a day. 3. Enbrel 50 mg once a week. 4. Cyclobenzaprine 10 mg as needed. 5. Lamotrigine 100 mg twice a day. 6. Simvastatin 40 mg once a day. 7. Carbidopa/levodopa 50/200 mg 3 times a day. 8. dine 100 mg 3 times a day. 9. Omeprazole 20 mg once a day. 10.Clopidogrel 75 mg once a day. 11.Aspirin 81 mg once a day. 12.Diazepam 2 mg once a day as needed. PHYSICAL EXAMINATION: GENERAL: Pleasant patient in no distress. VITAL SIGNS: BP 148/79, HR 98, RR 16, weight 210.4, height 5 feet 10-1/2 inches. Temperature 97.3, oxygen saturation at room air 95%. HEENT: PERRLA, EOMI, evaluation of oropharynx showed tongue protrudes midline. Extremely low position of soft palate; Mallampati IV. NECK: Supple, no JVD. Thyroid is not palpable. LUNGS: Clear to percussion and to auscultation. Good air exchange. No wheezing or rhonchi. HEART: S1, S2 regular. No murmurs, gallops, or rubs. ABDOMEN: Soft and nontender. Bowel sounds are present. No organomegaly appreciated. EXTREMITIES: No clubbing or cyanosis. DRUG SAFETY PHYSICIAN: Awake, alert, and oriented X3. Cranial nerves 2 to 7 intact. There is no fasciculation or atrophy. noted. No focal deficits observed. IMPRESSION: 1. Obstructive sleep apnea-hypopnea syndrome. Patient demonstrated great compliance with treatment, benefitting from treatment. Normal respiration on CPAP. 2. Hypertension. 3. History of Parkinson's disease. 4. Hyperlipidemia. 5. Acid reflux. 6. Benign prostatic hypertrophy. 7. History of anxiety and bipolar disorder. 8. History of ankylosing spondylitis. 9. Status post cholecystectomy. 10.Status post hernia repair. 11.Status post surgery for rotator cuff problems. 12.Status post surgical treatment of nasal septum deviation. PLAN: 1. Patient will continue to use PAP equipment every night for the whole night. 2. Sleep hygiene with regular time in bed for at least 7-1/2 to 8 hours. 3. Precautions related to driving. No driving if feeling sleepiness. 4. I will maintain all necessary prescription for PAP supplies including mask, tube, filters. 5. Watching weight. 6. Follow-up visit in 6 months or earlier if patient has any problems. Thank you very much for allowing me to participate in the management of your patient. Sincerely, Shad Isidro MD, PhD, FAASM Diplomat of [employer] Sleep Medicine Board of [employer] Worker [facility] [place] MMODL / LUIS: [id number] /
== END ==
LOC: SLEEP 13:07
PROVIDERS: ATTEND Internal Medicine
DX: G47.33 Obstructive sleep apnea (adult) (pediatric) (principal); I10 Essential (primary) hypertension; E78.5 Hyperlipidemia, unspecified; K21.9 Gastro-esophageal reflux disease without esophagitis; N40.0 Benign prostatic hyperplasia without lower urinary tract symptoms; F41.9 Anxiety disorder, unspecified; F31.9 Bipolar disorder, unspecified; Z90.49 Acquired absence of other specified parts of digestive tract; Z98.890 Other specified postprocedural states; Z87.39 Personal history of other diseases of the musculoskeletal system and connective tissue; Z88.0 Allergy status to penicillin; Z88.5 Allergy status to narcotic agent; Z91.013 Allergy to seafood; Z91.041 Radiographic dye allergy status

== ENCOUNTER → 2021-12-18 | Outpatient (CLI) | payer MEDICARE ==
--- NOTE | 2021-12-19 02:10 | MR ---
EXAMINATION TYPE: MR ankle LT wo con DATE OF EXAM: 12/18/2021 COMPARISON: None HISTORY: Left ankle pain x 3-4 months, tarsal tunnel syndrome vs posterior tibial tendon tear Multiplanar multiecho imaging of the left ankle without contrast. There is subcutaneous edema around the ankle. Ankle mortise is anatomic. Ankle joint space is fairly normal. Achilles tendon is intact. Plantar fascia is intact. The medial and lateral flexor tendons ap pear intact. The collateral ligaments appear intact as seen no bony destructive process. The talus an d calcaneus appear intact. There is small degenerative cyst formation in the subchondral medial dome of the talus. IMPRESSION: There is subcutaneous edema around the ankle. No fracture seen. No evidence of ligament or tendon tea r. Small 5 mm degenerative cyst noted in the subchondral medial dome of the talus.
== END | disposition home or self-care (01) ==
LOC: RADMRIMAIN 12:30
DX: M85.672 Other cyst of bone, left ankle and foot (principal); R60.0 Localized edema

== ENCOUNTER → 2021-12-18 | Outpatient (CLI) | payer MEDICARE ==
--- NOTE | 2021-12-18 13:42 | XR ---
EXAMINATION TYPE: XR Hip Complete LT DATE OF EXAM: 12/18/2021 COMPARISON: Pelvis 09/25/2018 HISTORY: Pain TECHNIQUE: 2 view left hip FINDINGS: Femoral head articulates with the acetabulum. No acute fracture or dislocation is evident. IMPRESSION: 1. No acute osseous abnormality left hip
== END | disposition home or self-care (01) ==
LOC: RADXRMAIN 12:42
PROVIDERS: ATTEND Family Medicine
DX: M25.552 Pain in left hip (principal)
CPT/HCPCS: 73502

== ENCOUNTER 2022-01-11 19:21 | Emergency (ER) | payer MEDICARE ==
[2022-01-11 19:42] VITALS: BP 150/90; PULSE 95; RESP 18; TEMP 98.3
[2022-01-11] MEDS ORDERED: LIDOCAINE 1% INJ 10MG/ML (5 ML VIAL-PF) SQ ONE (19:49)
[2022-01-11] MEDS ORDERED: ACETAMINOPHEN TAB 500 MG TAB PO STA (19:49)
[2022-01-11] MEDS ORDERED: DIPH,PERTUS(ACELL)TETVAC-LF 0.5 ML VIAL IM ONE (19:49)
[2022-01-11] MEDS ORDERED: BACITRACIN OINT 1 EACH PACKET TOPICAL STA (19:49)
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
== END 2022-01-11 21:17 | disposition home or self-care (01) ==
LOC: EC 19:21
DX: S01.81XA Laceration without foreign body of other part of head, initial encounter (principal); I10 Essential (primary) hypertension; I25.10 Atherosclerotic heart disease of native coronary artery without angina pectoris; Z79.82 Long term (current) use of aspirin; K21.9 Gastro-esophageal reflux disease without esophagitis; Z79.1 Long term (current) use of non-steroidal anti-inflammatories (NSAID); Z88.5 Allergy status to narcotic agent; Z91.041 Radiographic dye allergy status; Z88.0 Allergy status to penicillin; Z91.013 Allergy to seafood
CPT/HCPCS: 90715; 99282; 90471; 12011; J2001

== ENCOUNTER → 2022-06-19 | Outpatient (CLI) | payer MEDICARE ==
--- NOTE | 2022-06-19 14:08 | P.PN ---
Subjective DATE: 06/19/2022 FOLLOW UP VISIT. Patient with obstructive sleep apnea hypopnea syndrome return to sleep center for follow-up visit. Information from previous visit have been reviewed. Patient is using PAP equipment every night for the whole night, getting PAP supplies in time. The patient does not have significant problems with the mask or pressure. Patient referred that humidification does not work well. Mascot sleepiness scale is 4, which is normal. During the night patient has significant amount of movements, episodes of falling out of bed in the past. I checked PAP unit. PAP unit pressure 4-13, average 10.1 cm H2O. Usage is 100 % for more then 4 hours, average 8.9 hours per night. Leak is 23 l/m, which is in acceptable range. Apnea Hypopnea Index is 4.2, which is normal. I checked heated humidifier. It works, but at the level of 4 only slightly warm. I teach patient how to adjust humidity and humidity was adjusted up to the level of 7. MEDICATIONS:1. Rosuvastatin 20 mg once a day 2. Quetiapine twice a day 3. , Pristiq 100 mg once a day 4. , Flexeril 10 mg as needed 5. , Carbidopa levodopa 07560 milligrams 3 times a day 6. , Omeprazole 20 mg once a day 7. . Clopidogrel 75 mg once a day 8. , Synthroid 137 mg once a day During physical exam: GENERAL: A pleasant patient without any distress. VITAL SIGNS: BP 141/75, HR , 96, RR 18 , weight 212.0, temperature , 97.5, oxygen saturation at room air, 95 % . HEENT: PERRLA, EOMI.low position of soft palate, Mallapati 4 . NECK: Supple. No JVD. LUNGS: Clear to percussion and to auscultation. Good air exchange. No wheezing or rhonchi. HEART: S1, S2 regular. ABDOMEN: Soft and nontender. Slightly obese. EXTREMITIES: No clubbing or cyanosis. TWISTER HAND: Awake, alert, and oriented x3. No focal deficit. Impressions: 1. Obstructive sleep apnea-hypopnea syndrome. Patient demonstrated great compliance with treatment, benefiting from treatment. 2. Significant amount of movements during the sleep. Possibly out of dream movements. Episodes of falling out of bed in the past. Possible REM sleep behavioral disorder. 3. Anxiety. 4. . History of bipolar. 5. Hypertension. 6. , History of Parkinson's disease. 7. , Hyperlipidemia. 8. , Acid reflux. 9. , Benign prostatic hypertrophy. 10. . History of ankylosing spondylitis. 11. Status post surgical treatment of nasal septum deviation. 12.. Status post surgery for rotator cuff problems. Plan: 1. Continue using PAP equipment every night for the whole night. 2. Prescription for clonazepam 0.5 mg lowest dose at bedtime with a goal to prevent abnormal movements during the sleep. Patient is using diazepam for episodes of anxiety during the day. Patient was explained and he promised to take medications only at the different time Clonazepam at bedtime and diazepam only if necessary for anxiety during the daytime. 3. PAP unit should stay lower then position of the head. 4. Advised patient to remove all remaining water from humidifier canister daily and make it dry after each usage. Refill canister with fresh distilled water before each usage. 5. Sleep hygiene with regular time in bed for at least 8 hours. 6. Precautions related to driving. No driving if feel any sleepiness. 7. I will maintain prescription for PAP supplies including mask, tube, filters. Prescription to replace heated humidifier. 8. Follow up visit in 4 months or earlier if patient has any problems. 9. Watching weight. Thank you very much for allowing me to participate in the management of your pa tient. Shad Isidro MD, PhD, FAASM. Diplomat of [employer], Sleep Medicine Board by [employer] [facility] [place]
== END ==
LOC: SLEEP 13:17
PROVIDERS: ATTEND Internal Medicine
DX: G47.33 Obstructive sleep apnea (adult) (pediatric) (principal); Z99.89 Dependence on other enabling machines and devices; F41.9 Anxiety disorder, unspecified; I10 Essential (primary) hypertension; Z79.899 Other long term (current) drug therapy; Z86.59 Personal history of other mental and behavioral disorders; Z86.69 Personal history of other diseases of the nervous system and sense organs; E78.5 Hyperlipidemia, unspecified; K21.9 Gastro-esophageal reflux disease without esophagitis; N40.1 Benign prostatic hyperplasia with lower urinary tract symptoms; Z98.890 Other specified postprocedural states; Z87.39 Personal history of other diseases of the musculoskeletal system and connective tissue
CPT/HCPCS: 99212

== ENCOUNTER 2022-07-17 09:59 | Emergency (ER) | payer MEDICARE ==
[2022-07-17] MEDS ORDERED: KETOROLAC 15 MG/ML 1 ML VIAL IM STA (12:09)
[2022-07-17] MEDS ORDERED: methylPREDNISolone SOD SUCCI 125 MG/2 ML VIAL IM ONE (12:09)
[2022-07-17 12:21] VITALS: RESP 20
--- NOTE | 2022-07-17 12:36 | XR ---
EXAMINATION TYPE: XR chest 2V DATE OF EXAM: 07/17/2022 COMPARISON: 12/16/2020 INDICATION: Cough productive TECHNIQUE: Frontal and lateral views of the chest are obtained. FINDINGS: The heart size is normal. The pulmonary vasculature is normal. Some minimal infiltrate may be at the base on the lateral projection. Hyperinflation flattening of th e diaphragm is present. Consider COPD. IMPRESSION: 1. COPD. 2. Some minimal basilar infiltrate may be present identified on the lateral view. Small pneumonia may be present. Follow-up can be performed as clinically indicated.
--- NOTE | 2022-07-17 13:04 | ED ---
General Adult HPI - General Chief complaint: Upper Respiratory Infection Stated complaint: COVID+,Cough,Body Aches Time Seen by Provider: 07/17/22 12:00 Source: patient Mode of arrival: ambulatory Limitations: no limitations - History of Present Illness Initial comments: Patient is a 67-year-old male presenting with cough and body aches. Patient states symptoms started on Thursday. Cough is intermittently productive, clear sputum. His currently has COVID-19. He denies fever, chills, chest pain, shortness of breath., Vomiting. Denies history of COPD and asthma. - Related Data Home Medications Medication Instructions Recorded Confirmed Etanercept [Enbrel] 50 mg SQ Q7DAYS 09/22/14 03/19/21 Simvastatin [Zocor] 40 mg PO DAILY 09/22/14 03/19/21 ALPRAZolam [Xanax] 0.25 mg PO DAILY PRN 03/19/21 03/19/21 Aspirin EC [Ecotrin Low Dose] 81 mg PO DAILY 03/19/21 03/19/21 Carbidopa-Levodopa ER 50-200Mg 1 tab PO BID 03/19/21 03/19/21 [Sinemet ER 50-200] Clopidogrel Bisulfate [Plavix] 75 mg PO DAILY 03/19/21 03/19/21 Cyclobenzaprine [Flexeril] 10 mg PO HS PRN 03/19/21 03/19/21 Desvenlafaxine [Pristiq ER] 100 mg PO DAILY 03/19/21 03/19/21 Omeprazole 20 mg PO DAILY 03/19/21 03/19/21 QUEtiapine FUMARATE [SEROquel XR] 300 mg PO HS 03/19/21 03/19/21 QUEtiapine [SEROquel] 100 mg PO HS 03/19/21 03/19/21 Trimix Injection 20 units SQ DAILY PRN 03/19/21 03/19/21 amantadine HCL [Amantadine] 100 mg PO TID 03/19/21 03/19/21 lamoTRIgine [LaMICtal] 100 mg PO BID 03/19/21 03/19/21 Previous Rx's Medication Instructions Recorded traMADol HCl [Ultram] 50 mg PO Q6H PRN #20 tab 03/19/21 Allergies Allergy/AdvReac Type Severity Reaction Status Date / Time hydrocodone bitartrate Allergy Itching Verified 07/17/22 10:18 [From Vicodin] iodine Allergy Diarrhea Verified 07/17/22 10:18 Penicillins Allergy Unknown Verified 07/17/22 10:18 shellfish derived Allergy Diarrhea Verified 07/17/22 10:18 Review of Systems ROS Statement: Those systems with pertinent positive or pertinent negative responses have been documented in the HPI. ROS Other: All systems not noted in ROS Statement are negative. Past Medical History Past Medical History: Coronary Artery Disease (CAD), GERD/Reflux, Hyperlipidemia, Hypertension, Musculoskeletal Disorder, Prostate Disorder, Sleep Apnea/CPAP/BIPAP, Thyroid Disorder Additional Past Medical History / Comment(s): SLEEP APNEA (DOES NOT USE MACHINE), BIPOLAR, ARTHRITIS, PAST HX OF CROHNS, ENLARGED PROSTATE, ANKYLOSING SPONDYLITIS, RLS, NEUROPATHY, STATES OCCASIONAL DIZZINESS. parkinsons History of Any Multi-Drug Resistant Organisms: None Reported Past Surgical History: Cholecystectomy, Heart Catheterization With Stent, Hernia Repair Additional Past Surgical History / Comment(s): lt ear surgery, lt foot surgery, rt rotator cuff surgery, nasal surgeries x2, colonoscopies Past Anesthesia/Blood Transfusion Reactions: No Reported Reaction Past Psychological History: Anxiety, Bipolar, Depression Smoking Status: Never smoker Past Alcohol Use History: None Reported Past Drug Use History: None Reported - Past Family History Daughter(s) Additional Family Medical History / Comment(s): MS Father Family Medical History: Cancer General Exam Limitations: no limitations General appearance: alert, in no apparent distress Head exam: Present: atraumatic, normocephalic, normal inspection Respiratory exam: Present: normal lung sounds bilaterally. Absent: respiratory distress, wheezes, rales, rhonchi, stridor Cardiovascular Exam: Present: regular rate, normal rhythm, normal heart sounds. Absent: systolic murmur, diastolic murmur, rubs, gallop, clicks Neurological exam: Present: alert, oriented X3, CN II-XII intact Skin exam: Present: warm, dry, intact, normal color. Absent: rash Course Vital Signs 07/17/22 07/17/22 07/17/22 10:14 12:19 13:13 Temperature 98.3 F 97.6 F Pulse Rate 104 H 103 H Respiratory 22 20 20 Rate Blood Pressure 123/73 125/79 O2 Sat by Pulse 96 95 Oximetry Medical Decision Making - Medical Decision Making This is a 67-year-old male presenting with upper respiratory symptoms. COVID-19 is detected. Chest x-ray obtained interpreted by me which shows COPD and some minimal basilar infiltrate possibly present on lateral view. This is likely related to COVID-19. Patient given steroid and Toradol which improved symptoms. Patient well- appearing, normal vital signs, no wheezing, no shortness of breath, he is medically stable for discharge. Dr. Roth is my attending. - Lab Data Lab Results 07/17/22 Range/Units 12:05 Coronavirus (PCR) Detected A (Not Detectd) Disposition Clinical Impression: COVID-19, Cough Disposition: HOME SELF-CARE Condition: Good Instructions (If sedation given, give patient instructions): Coronavirus Disease 2019 (COVID-19) Additional Instructions: Continue Motrin 800 at home for body aches. Quantitative home for 5 days. Return to the emergency department experience new, concerning, or worsening symptoms. Is patient prescribed a controlled substance at d/c from ED?: No Referrals: Gen Hinkle MD [Primary Care Provider] - 1-2 days Time of Disposition: 13:04
[2022-07-17 13:14] VITALS: BP 125/79; PULSE 103; TEMP 97.6
== END 2022-07-17 13:14 | disposition home or self-care (01) ==
LOC: EC 09:59
DX: U07.1 COVID-19 (principal); I10 Essential (primary) hypertension; I25.10 Atherosclerotic heart disease of native coronary artery without angina pectoris; K21.9 Gastro-esophageal reflux disease without esophagitis; E78.5 Hyperlipidemia, unspecified; G47.30 Sleep apnea, unspecified; E03.9 Hypothyroidism, unspecified; F41.9 Anxiety disorder, unspecified; F31.9 Bipolar disorder, unspecified; Z79.83 Long term (current) use of bisphosphonates; Z79.899 Other long term (current) drug therapy; Z79.82 Long term (current) use of aspirin; Z88.5 Allergy status to narcotic agent; Z88.0 Allergy status to penicillin; Z91.013 Allergy to seafood
CPT/HCPCS: 87635; 71046; 99284; 96372 ×2; J2930; J1885

== ENCOUNTER 2022-08-21 10:46 | Observation (INO) | payer MEDICARE ==
--- NOTE | 2022-08-21 11:27 | XR ---
EXAMINATION TYPE: XR chest 2V DATE OF EXAM: 08/21/2022 COMPARISON: 07/17/2022 INDICATION: Chest pain right side TECHNIQUE: Frontal and lateral views of the chest are obtained. FINDINGS: The heart size is normal. The pulmonary vasculature is normal. The lungs are clear. IMPRESSION: 1. No acute pulmonary process.
[2022-08-21] MEDS ORDERED: ASPIRIN 81 MG PO STA (11:43)
--- NOTE | 2022-08-21 12:03 | ED ---
Chest Pain HPI - General Chief Complaint: Chest Pain Stated Complaint: chest pain Time Seen by Provider: 08/21/22 11:31 Source: patient, family, RN notes reviewed Mode of arrival: ambulatory Limitations: no limitations - History of Present Illness Initial Comments: Patient is a pleasant 67-year-old male presenting to the emergency room with concerns regarding chest pain this morning. He reports that he had some during his sleep and went back to sleep and when he woke up he continue to have the chest pain that was pressure-like in nature in the center of his chest feeling as though someone was sitting on him. He does not have the chest pain at this time to identify the pain is reproducible or not. He denies any associated symptoms with the chest pain including any shortness of breath, headache, dizziness, diaphoresis, orthopnea, or lower extremity edema. He denies any abdominal pain, nausea, vomiting, diarrhea, fevers or chills. He unfortunately does have a significant cardiovascular history and falls with cardiology at [facility]. He has undergone cardiac stenting most recently in February of this year. He is currently enrolled in cardiac rehab due to delay in being able to get in along with having Covid last month. In addition to his CAD is a history has a past medical history significant for hypertension, hyperlipidemia, Ankylosing spondylitis in which he is on immune suppressant therapy for, Parkinson's, anxiety and depression. - Related Data Home Medications Medication Instructions Recorded Confirmed Etanercept [Enbrel] 50 mg SQ HINES 09/22/14 08/21/22 Aspirin EC [Ecotrin Low Dose] 81 mg PO DAILY 03/19/21 08/21/22 Carbidopa-Levodopa ER 50-200Mg 1 tab PO TID 03/19/21 08/21/22 [Sinemet ER 50-200] Clopidogrel Bisulfate [Plavix] 75 mg PO DAILY 03/19/21 08/21/22 Cyclobenzaprine [Flexeril] 10 mg PO DAILY PRN 03/19/21 08/21/22 Desvenlafaxine [Pristiq ER] 100 mg PO DAILY 03/19/21 08/21/22 Omeprazole 20 mg PO DAILY PRN 03/19/21 08/21/22 QUEtiapine FUMARATE [SEROquel XR] 300 mg PO DAILY 03/19/21 08/21/22 Trimix Injection 20 units SQ DAILY PRN 03/19/21 08/21/22 amantadine HCL [Amantadine] 100 mg PO TID 03/19/21 08/21/22 Levothyroxine Sodium [Levo-T] 137 mcg PO DAILY 08/21/22 08/21/22 QUEtiapine [SEROquel] 50 mg PO HS 08/21/22 08/21/22 Rosuvastatin Calcium 20 mg PO HS 08/21/22 08/21/22 diazePAM [Valium] 2 mg PO DAILY PRN 08/21/22 08/21/22 lamoTRIgine [LaMICtal] 150 mg PO BID 08/21/22 08/21/22 polyethylene glycoL 3350 [Miralax] 17 gm PO DAILY PRN 08/21/22 08/21/22 Allergies Allergy/AdvReac Type Severity Reaction Status Date / Time hydrocodone bitartrate Allergy Itching Verified 08/21/22 12:57 [From Vicodin] iodine Allergy Diarrhea Verified 08/21/22 12:57 Penicillins Allergy Unknown Verified 08/21/22 12:57 shellfish derived Allergy Diarrhea Verified 08/21/22 12:57 Review of Systems ROS Statement: Those systems with pertinent positive or pertinent negative responses have been documented in the HPI. ROS Other: All systems not noted in ROS Statement are negative. EKG Findings - EKG Comments: EKG Findings:: EKG completed 1056 intervertebral me demonstrates sinus rhythm with right bundle branch block, ventricular rate 87 bpm, MD interval 161 ms, QRS duration 146 ms, QT/QTC 376/421 ms, PRT axes 55, -38, 42 Past Medical History Past Medical History: Coronary Artery Disease (CAD), GERD/Reflux, Hyperlipidemia, Hypertension, Musculoskeletal Disorder, Prostate Disorder, Sleep Apnea/CPAP/BIPAP, Thyroid Disorder Additional Past Medical History / Comment(s): SLEEP APNEA (DOES NOT USE MACHINE), BIPOLAR, ARTHRITIS, PAST HX OF CROHNS, ENLARGED PROSTATE, ANKYLOSING SPONDYLITIS, RLS, NEUROPATHY, STATES OCCASIONAL DIZZINESS. parkinsons History of Any Multi-Drug Resistant Organisms: None Reported Past Surgical History: Cholecystectomy, Heart Catheterization With Stent, Hernia Repair Additional Past Surgical History / Comment(s): lt ear surgery, lt foot surgery, rt rotator cuff surgery, nasal surgeries x2, colonoscopies Past Anesthesia/Blood Transfusion Reactions: No Reported Reaction Past Psychological History: Anxiety, Bipolar, Depression Smoking Status: Never smoker Past Alcohol Use History: None Reported Past Drug Use History: None Reported - Past Family History Daughter(s) Additional Family Medical History / Comment(s): MS Father Family Medical History: Cancer General Exam Limitations: no limitations General appearance: alert, in no apparent distress Head exam: Present: atraumatic, normocephalic, normal inspection Eye exam: Present: normal appearance, PERRL, EOMI. Absent: scleral icterus, conjunctival injection, periorbital swelling ENT exam: Present: normal exam, mucous membranes moist, other (Hearing aids intact) Neck exam: Present: normal inspection, full ROM Respiratory exam: Present: normal lung sounds bilaterally. Absent: respiratory distress, wheezes, rales, rhonchi, stridor Cardiovascular Exam: Present: regular rate, normal rhythm, normal heart sounds. Absent: systolic murmur, diastolic murmur, rubs, gallop, clicks GI/Abdominal exam: Present: soft, normal bowel sounds. Absent: distended, tenderness, guarding, rebound, rigid Rectal exam: Present: deferred Extremities exam: Present: normal inspection. Absent: pedal edema, joint swelling Back exam: Present: normal inspection Neurological exam: Present: alert, oriented X3, CN II-XII intact, other (Left hand pill-rolling tremor) Psychiatric exam: Present: normal affect, normal mood Skin exam: Present: warm, dry, intact, normal color. 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 67-year-old male presenting with substernal chest pressure earlier today with unknown alleviating or aggravating factors not currently experiencing at this time with known CAD history. Also recent Covid illness one month ago. No other associated symptoms at time of incident and as stated no current chest pain. Due to comorbid conditions will work up as possible cardiogenic chest pain with EKG, CBC, CMP, troponin, magnesium, coags, chest x-ray along with d-dimer in the setting of recent Covid illness. On 81 mg of aspirin will give additional 231 for a total of 324. No chest pain at this time; no indication for other medication. Will continue to monitor closely. EKG demonstrates sinus rhythm with a bundle branch block, chest x-ray image interpreted by me demonstrates no acute cardiopulmonary process, no infiltrates or cardiomegaly. Radiologist report also reviewed. CBC unremarkable. CMP overall without abnormalities with the exception of slightly elevated glucose 108. Coags normal. D-dimer normal 0.55, troponin negative. Findings discussed with patient and spouse. Advised given etiology of chest pain along with cardiovascular risk factors recommend observation admission for continued monitoring of troponin and along with repeat EKG. Patient and spouse agreeable to this plan. Questions and concerns answered. Will page sound physician covering for patient's primary care provider in regards to need for observation admission. Spoke with Dr. Redmond regarding observation admission recommendations patient's presentation and current findings. She is accepting of admission. We'll place admission orders along with repeat EKG and troponin and reconciled some of his home medications that are due soon. Case discussed with Dr. Nixon. - JACEY Score Age > 65: (1) Yes 3 or more CAD Risk Factors: (1) Yes Known CAD with more than 50% Stenosis: (1) Yes (previous stenting) Aspirin use within the Past 7 Days: (1) Yes Elevated Cardiac Markers: (0) No ST Deviation Greater than 0.5mm: (0) No Disposition Clinical Impression: Chest pain Disposition: ADMITTED IP TO THIS HOSP Condition: Stable Is patient prescribed a controlled substance at d/c from ED?: No Referrals: Gen Hinkle MD [Primary Care Provider] - 1-2 days Time of Disposition: 13:59
[2022-08-21 12:16] LABS: Albumin 4.3 g/dL (3.5-5.0); Calcium 8.8 mg/dL (8.4-10.2); Magnesium 2.2 mg/dL (1.6-2.3); Potassium 4.4 mmol/L (3.5-5.1); Total Bilirubin 0.7 mg/dL (0.2-1.3); Total Protein 7.6 g/dL (6.3-8.2)
[2022-08-21 12:23] LABS: Basophils % (A) 1 %; Eosinophils # (A) 0.3 k/uL (0-0.7); Eosinophils % (A) 5 %; HCT 42.2 % (39.0-53.0); HGB 14.5 gm/dL (13.0-17.5); Lymphocytes # (A) 1.9 k/uL (1.0-4.8); Lymphocytes % (A) 33 %; MCH 32.1 pg (25.0-35.0); MCHC 34.5 g/dL (31.0-37.0); Mean Platelet Volume 7.1; Monocytes # (A) 0.4 k/uL (0-1.0); Monocytes % (A) 7 %; Neutrophils # (A) 2.9 k/uL (1.3-7.7); Neutrophils % (A) 50 %; Platelet Count 159 k/uL (150-450); RBC 4.54 m/uL (4.30-5.90); RDW 13.5 % (11.5-15.5); WBC 5.8 k/uL (3.8-10.6)
[2022-08-21 12:26] LABS: Partial Thromboplastin Time 24.6 sec (22.0-30.0); Prothrombin Time 10.2 sec (9.0-12.0)
[2022-08-21] MEDS ORDERED: NALOXONE 0.4 MG/ML 1 ML VIAL IV PRN (13:55)
[2022-08-21] MEDS ORDERED: diazePAM 2 MG TAB PO PRN (14:28)
[2022-08-21] MEDS ORDERED: PANTOPRAZOLE 40 MG TABLET PO PRN (14:28)
[2022-08-21] MEDS ORDERED: CYCLOBENZAPRINE 10 MG TAB PO PRN (14:28)
[2022-08-21] MEDS ORDERED: CARBIDOPA-LEVODOPA ER 50-200MG 1 EACH TABLET.ER PO SCH ×2 (16:00)
[2022-08-21] MEDS ORDERED: MAG HYDROX/AL HYDROX/SIMETH 30 ML, HYOSCYAMINE ELIXIR 10 ML, LIDOCAINE VISCOUS 2% 10 ML PO PRN ×3 (16:15)
--- NOTE | 2022-08-21 16:18 | P.HPIM ---
History of Present Illness H&P Date: 08/21/22 History of Presenting Illness: Patient is a very pleasant 67-year-old male with a past medical history of coronary artery disease with stents on dual antiplatelet therapy with aspirin and Plavix follows with cardiology at [facility], hypertension, hypo thyroidism, hyperlipidemia, ankylosing spondylitis on immunosuppressant therapy, Parkinson's disease, anxiety, and depression. He presented to the emergency department with a chief complaint of chest pain. Patient described this pain as a pressure-like sensation to midsternal chest and denies any radiation of this pain. Patient reports initially pain awoken him from sleep, but states he was able to fall back asleep but upon awakening this morning this midsternal chest pressure returned. He denies any radiation of this pain and denies anything making pain better or worse. Patient denied any associated symptoms including headache, lightheadedness, dizziness, palpitations, shortness of breath, orthopnea, or experiencing any numbness/tingling/weakness/swelling in his lower extremities. Patient reports this pressure-like sensation subsided followed by a slight burning sensation and is currently resolved at this time. He underwent full evaluation in the emergency department. CBC and CMP were unremarkable. Coagulation profile normal findings. D-dimer negative at 0.55. Troponin also negative at less than 0.012. EKG was completed showing normal sinus rhythm at 87 bpm with a right bundle branch block which is new when compared to EKG completed 12/16/20. Chest x-ray negative for acute cardiopulmonary process. Patient admitted under our services with consultation to cardiology. Review of systems: Pertinent positives and negatives as discussed in HPI, a complete review of systems was performed and all other systems are negative. Physical exam: Vital signs reviewed and stable. General: Nontoxic, no distress and appears stated age. Derm: Skin warm and dry, normal coloration for ethnicity. Head: Atraumatic, normocephalic and symmetric. Eyes: EOMs intact, no lid lag, and anicteric sclera Mouth: no lip lesions, mucus membranes moist Cardiovascular: regular rate and rhythm with normal S1S2, no murmur, positive posterior tibial pulses bilaterally, and cap refill < 2 seconds. Lungs: Respirations even, regular, and unlabored on room air. Lungs CTA bilaterally, no rhonchi, no rales, no wheezing, and no accessory muscle usage. Abdominal: soft, nontender to palpation, no guarding, no appreciable organomegaly Ext: ROM intact. No gross muscle atrophy, no edema, no contractures Neuro: Speech clear, face symmetrical and CN II-XII grossly intact with no noted focal neuro deficits Psych: Alert and oriented to person, place, time, and situation. Appropriate and pleasant affect. Assessment and Plan of Care: Chest pain, rule out acute coronary event History of CAD with stents Hypertension Hyperlipidemia EKG changes, likely benign, however patient has newly noted right bundle branch block -Cardiology consult, appreciate further recommendations -Telemetry monitoring -Trend troponins -Cardiac diet, NPO at midnight -Continue cardiac medication regimen with -Lipid profile with a.m. labs. -Echocardiogram Ankylosing spondylitis -Patient may continue daily medication regimen Enbrel. Parkinson's disease -Continue daily medication regimen of carbidopa levodopa and amantadine. Hypothyroidism -Continue daily medication regimen with levothyroxine. The patient is admitted with an anticipated less than than 2 midnight stay for evaluation of chest pain. CODE STATUS: Full code DVT prophylaxis: Heparin Discussed with: Patient and RN Anticipated discharge date: Likely 1-[address]: Home A total of 46 minutes was spent on the care of this complex patient more than 50% of the time was spent in counseling and care coordination. Aditya Ma NP rendered care for this patient independently, reviewed the findings and plan as documented in the note above. I did not physically speak with or examine the patient on this date. Past Medical History Past Medical History: Coronary Artery Disease (CAD), GERD/Reflux, Hyperlipidemia, Hypertension, Musculoskeletal Disorder, Prostate Disorder, Sleep Apnea/CPAP/BIPAP, Thyroid Disorder Additional Past Medical History / Comment(s): SLEEP APNEA (DOES NOT USE MACHINE ), BIPOLAR, ARTHRITIS, PAST HX OF CROHNS, ENLARGED PROSTATE, ANKYLOSING SPONDYLITIS, RLS, NEUROPATHY, STATES OCCASIONAL DIZZINESS. parkinsons History of Any Multi-Drug Resistant Organisms: None Reported Past Surgical History: Cholecystectomy, Heart Catheterization With Stent, Hernia Repair Additional Past Surgical History / Comment(s): lt ear surgery, lt foot surgery, rt rotator cuff surgery, nasal surgeries x2, colonoscopies Past Anesthesia/Blood Transfusion Reactions: No Reported Reaction Past Psychological History: Anxiety, Bipolar, Depression Smoking Status: Never smoker Past Alcohol Use History: None Reported Past Drug Use History: None Reported - Past Family History Daughter(s) Additional Family Medical History / Comment(s): MS Father Family Medical History: Cancer Medications and Allergies Home Medications Medication Instructions Recorded Confirmed Type Etanercept [Enbrel] 50 mg SQ HINES 09/22/14 08/21/22 History Aspirin EC [Ecotrin Low Dose] 81 mg PO DAILY 03/19/21 08/21/22 History Carbidopa-Levodopa ER 50-200Mg 1 tab PO TID 03/19/21 08/21/22 History [Sinemet ER 50-200] Clopidogrel Bisulfate [Plavix] 75 mg PO DAILY 03/19/21 08/21/22 History Cyclobenzaprine [Flexeril] 10 mg PO DAILY PRN 03/19/21 08/21/22 History Desvenlafaxine [Pristiq ER] 100 mg PO DAILY 03/19/21 08/21/22 History Omeprazole 20 mg PO DAILY PRN 03/19/21 08/21/22 History QUEtiapine FUMARATE [SEROquel XR] 300 mg PO DAILY 03/19/21 08/21/22 History Trimix Injection 20 units SQ DAILY PRN 03/19/21 08/21/22 History amantadine HCL [Amantadine] 100 mg PO TID 03/19/21 08/21/22 History Levothyroxine Sodium [Levo-T] 137 mcg PO DAILY 08/21/22 08/21/22 History QUEtiapine [SEROquel] 50 mg PO HS 08/21/22 08/21/22 History Rosuvastatin Calcium 20 mg PO HS 08/21/22 08/21/22 History diazePAM [Valium] 2 mg PO DAILY PRN 08/21/22 08/21/22 History lamoTRIgine [LaMICtal] 150 mg PO BID 08/21/22 08/21/22 History polyethylene glycoL 3350 [Miralax] 17 gm PO DAILY PRN 08/21/22 08/21/22 History Allergies Allergy/AdvReac Type Severity Reaction Status Date / Time hydrocodone bitartrate Allergy Itching Verified 08/21/22 12:57 [From Vicodin] iodine Allergy Diarrhea Verified 08/21/22 12:57 Penicillins Allergy Unknown Verified 08/21/22 12:57 shellfish derived Allergy Diarrhea Verified 08/21/22 12:57 Physical Exam Osteopathic Statement: *. No significant issues noted on an osteopathic structural exam other than those noted in the History and Physical/Consult. Vitals: Vital Signs Temp Pulse Pulse Resp BP Pulse Ox 08/21/22 14:07 92 16 132/86 97 08/21/22 11:26 81 08/21/22 10:47 97.4 F L 90 18 122/79 96 Intake and Output 08/20/22 08/21/22 08/21/22 22:59 06:59 14:59 Other: Weight 97.069 kg Results CBC & Chem 7: 08/21/22 12:18 08/21/22 11:42 Labs: Abnormal Lab Results - Last 24 Hours (Table) 08/21/22 Range/Units 11:42 Glucose 108 H (74-99) mg/dL
[2022-08-21] MEDS: CARBIDOPA-LEVODOPA ER 50-200MG 1 EACH TABLET.ER PO SCH (18:23)
[2022-08-21] MEDS: HEPARIN SODIUM,PORCINE/PF 5,000 UNIT/0.5 ML SYRINGE SQ SCH (18:23)
[2022-08-21] MEDS: lamoTRIgine 100 MG TAB PO SCH (20:16)
[2022-08-21] MEDS ORDERED: ATORVASTATIN 40 MG TAB PO SCH (21:00)
[2022-08-21] MEDS ORDERED: QUEtiapine 50 MG TAB PO SCH (21:00)
[2022-08-22] MEDS: HEPARIN SODIUM,PORCINE/PF 5,000 UNIT/0.5 ML SYRINGE SQ SCH ×2 (02:38→09:10)
[2022-08-22] MEDS ORDERED: LEVOTHYROXINE 137 MCG TAB PO SCH (06:30)
[2022-08-22 08:04] VITALS: BP 122/79; PULSE 81; RESP 19; TEMP 98.1
[2022-08-22] MEDS ORDERED: QUEtiapine 50 MG TAB PO SCH (09:00)
[2022-08-22] MEDS ORDERED: PANTOPRAZOLE 40 MG TABLET PO SCH (09:00)
[2022-08-22] MEDS ORDERED: ASPIRIN 81 MG PO SCH (09:00)
[2022-08-22] MEDS ORDERED: DESVENLAFAXINE SUCCINATE 50 MG TAB.ER.24H PO SCH (09:00)
[2022-08-22] MEDS ORDERED: CLOPIDOGREL 75 MG TAB PO SCH (09:00)
--- NOTE | 2022-08-22 09:03 | CA ---
Transthoracic Echo Report Name: Robert Foley Age: 67 Gender: M : 1955 Exam Date: 08/22/2022 07:37 Exam Location: [facility] Ht (in): 60 Wt (lb): 214 Ordering Physician: Aditya Ma Attending/Referring Phys: Hand Cell Tuber Olga Jones RDCS Procedure CPT: Indications: Assess structure and function Cardiac Hx: Technical Quality: Contrast 1: Total Dose (mL): Contrast 2: Total Dose (mL): MEASUREMENTS (Male / Female) Normal Values 2D ECHO LV Diastolic Diameter PLAX 4.3 cm 4.2 - 5.9 / 3.9 - 5.3 cm LV Systolic Diameter PLAX 3.6 cm IVS Diastolic Thickness 1.1 cm 0.6 - 1.0 / 0.6 - 0.9 cm LVPW Diastolic Thickness 1.9 cm 0.6 - 1.0 / 0.6 - 0.9 cm LV Relative Wall Thickness 0.7 RV Internal Dim ED PLAX 2.1 cm LA Systolic Diameter LX 3.8 cm 3.0 - 4.0 / 2.7 - 3.8 cm LA Volume 59.0 cm??? 18 - 58 / 22 - 52 cm??? M-MODE Aortic Root Diameter MM 3.3 cm LA Systolic Diameter MM 3.9 cm LA Ao Ratio MM 1.2 MV E Point Septal Separation 0.5 cm AV Cusp Separation MM 2.7 cm DOPPLER MV Area PHT 2.7 cm??? Mitral E Point Velocity 45.8 cm/s Mitral A Point Velocity 68.6 cm/s Mitral E to A Ratio 0.7 MV Deceleration Time 282.2 ms FINDINGS Left Ventricle Left ventricular ejection fraction is estimated at 55%. Left ventricular cavity size normal. Right Ventricle Normal right ventricular size and function. Right ventricular systolic pressure within normal limits. Right Atrium Normal right atrial size. Left Atrium Normal left atrial size. Mitral Valve Structurally normal mitral valve. Mild mitral regurgitation. Aortic Valve Trileaflet aortic valve. Mild aortic regurgitation. Tricuspid Valve Structurally normal tricuspid valve. Mild tricuspid regurgitation. Pulmonic Valve Structurally normal pulmonic valve. Pericardium Echo free space anterior to the right ventricle likely represents a fat pad. Aorta Normal size aortic root and proximal ascending aorta. CONCLUSIONS Normal left ventricular size wall motion systolic function Mild mitral aortic and tricuspid regurgitation Previewed by: Dr. Louis Garcia MD (Electronically Signed) Final Date: 22 August 2022 09:02
[2022-08-22] MEDS: lamoTRIgine 100 MG TAB PO SCH (09:08)
[2022-08-22] MEDS: CARBIDOPA-LEVODOPA ER 50-200MG 1 EACH TABLET.ER PO SCH ×2 (09:09→14:13)
[2022-08-22] MEDS ORDERED: ISOSORBIDE MONONITRATE ER 30 MG TAB.ER.24H PO SCH (10:00)
[2022-08-22] MEDS ORDERED: METOPROLOL SUCCINATE (ER) 25 MG TAB.ER.24H PO SCH (10:00)
--- NOTE | 2022-08-22 14:42 | P.DS ---
Providers Date of admission: 08/21/22 13:55 Expected date of discharge: 08/22/22 Attending physician: Annemarie Govea DO Consults: 08/22/22 08:59 Consult Physician Routine Consulting Provider: Louis Garcia Consult Reason/Comments: chest pain Do you want consulting provider notified?: Yes Primary care physician: [facility] Course: Discharge Diagnosis: Chest pain, acute coronary event ruled out. Patient was started on Imdur and metoprolol in addition to daily cardiac medication regimen with Plavix, aspirin and rosuvastatin. History of CAD with stents. Continue cardiac medication regimen with Imdur, metoprolol, Plavix, aspirin, and rosuvastatin. Hypertension. Monitor vital signs and continue daily medication regimen with metoprolol and Imdur as prescribed. Hyperlipidemia. Continue daily medication regimen with rosuvastatin. EKG changes, likely benign, however patient has newly noted right bundle branch block Ankylosing spondylitis. Patient may continue daily medication regimen Enbrel. Parkinson's disease. Continue daily medication regimen of carbidopa levodopa and amantadine. Hypothyroidism. Continue daily medication regimen with levothyroxine. Hospital Course: Patient is a very pleasant 67-year-old male with a past medical history of coronary artery disease with stents on dual antiplatelet therapy with aspirin and Plavix follows with cardiology at [facility], hypertension, hypothyroidism, hyperlipidemia, ankylosing spondylitis on immunosuppressant therapy, Parkinson's disease, anxiety, and depression. He presented to the emergency department with a chief complaint of chest pain. Patient described this pain as a pressure-like sensation to midsternal chest and denies any radiation of this pain. Patient reports initially pain awoken him from sleep, but states he was able to fall back asleep but upon awakening this morning this midsternal chest pressure returned. He denies any radiation of this pain and denies anything making pain better or worse. Patient denied any associated symptoms including headache, lightheadedness, dizziness, palpitations, shortness of breath, orthopnea, or experiencing any numbness/tingling/weakness/swelling in his lower extremities. Patient reports this pressure-like sensation subsided followed by a slight burning sensation and is currently resolved at this time. He underwent full evaluation in the emergency department. CBC and CMP were unremarkable. Coagulation profile normal findings. D-dimer negative at 0.55. Troponin also negative at less than 0.012. EKG was completed showing normal sinus rhythm at 87 bpm with a right bundle branch block which is new when compared to EKG completed 12/16/20. Chest x-ray negative for acute cardiopulmonary process. Patient admitted under our services with consultation to cardiology. Troponins trended overnight all negative at less than 0.0123 draws. Patient was evaluated by cardiology and started on metoprolol and Imdur. Side Door Worker recommending stress testing, however patient reported he would rather follow-up with his petroleum blending plant operator Dr. Soriano with [facility] for any additional testing. Echocardiogram was completed revealing normal preserved EF 55% with mild mitral, aortic, and tricuspid regurgitation. Patient's chest pain has remained resolved since subsiding yesterday afternoon. Vital signs unremarkable, patient free from any pain, complaints, or concerns. Patient is medically stable for discharge at this time and to follow up as with his PCP in 1-2 days as well as his petroleum blending plant operator for strongly recommended stress testing. Patient was started on Imdur and metoprolol in addition to daily cardiac medication regimen with Plavix, aspirin and rosuvastatin. Physical exam: Vital signs reviewed and stable. General: Nontoxic, no distress and appears stated age. Derm: Skin warm and dry, normal coloration for ethnicity. Head: Atraumatic, normocephalic and symmetric. Eyes: EOMs intact, no lid lag, and anicteric sclera Mouth: no lip lesions, mucus membranes moist Cardiovascular: regular rate and rhythm with normal S1S2, no murmur, positive posterior tibial pulses bilaterally, and cap refill < 2 seconds. Lungs: Respirations even, regular, and unlabored on room air. Lungs CTA bilaterally, no rhonchi, no rales, no wheezing, and no accessory muscle usage. Abdominal: soft, nontender to palpation, no guarding, no appreciable organomeg sierra Ext: ROM intact. No gross muscle atrophy, no edema, no contractures Neuro: Speech clear, face symmetrical and CN II-XII grossly intact with no noted focal neuro deficits Psych: Alert and oriented to person, place, time, and situation. Appropriate and pleasant affect. A total of 34 minutes of time were spent preparing this complex discharge summary. Pt was discharged on 08/22/22 at 2:21 PM. Aditya Ma NP rendered care for this patient independently, reviewed the findings and plan as documented in the note above. I did not physically speak with or examine the patient on this date. Patient Condition at Discharge: Stable Plan - Discharge Summary New Discharge Prescriptions: New Isosorbide Mononitrate ER [Imdur] 30 mg PO DAILY 30 Days #30 tab Metoprolol Succinate (ER) [Toprol XL] 25 mg PO DAILY 30 Days #30 tab Continue Etanercept [Enbrel] 50 mg SQ HINES Clopidogrel Bisulfate [Plavix] 75 mg PO DAILY amantadine HCL [Amantadine] 100 mg PO TID Carbidopa-Levodopa ER 50-200Mg [Sinemet CR 50-200 mg] 1 tab PO TID Trimix Injection 20 units SQ DAILY PRN PRN Reason: E.D. Cyclobenzaprine [Flexeril] 10 mg PO DAILY PRN PRN Reason: Pain QUEtiapine FUMARATE [SEROquel XR] 300 mg PO DAILY Levothyroxine Sodium [Levo-T] 137 mcg PO DAILY polyethylene glycoL 3350 [Miralax] 17 gm PO DAILY PRN PRN Reason: Constipation Aspirin EC [Ecotrin Low Dose] 81 mg PO DAILY Omeprazole 20 mg PO DAILY PRN PRN Reason: acid reflux Desvenlafaxine [Pristiq ER] 100 mg PO DAILY diazePAM [Valium] 2 mg PO DAILY PRN PRN Reason: Anxiety lamoTRIgine [LaMICtal] 150 mg PO BID QUEtiapine [SEROquel] 50 mg PO HS Rosuvastatin Calcium 20 mg PO HS Discharge Medication List Etanercept [Enbrel] 50 mg SQ HINES 09/22/14 [History] Aspirin EC [Ecotrin Low Dose] 81 mg PO DAILY 03/19/21 [History] Carbidopa-Levodopa ER 50-200Mg [Sinemet CR 50-200 mg] 1 tab PO TID 03/19/21 [History] Clopidogrel Bisulfate [Plavix] 75 mg PO DAILY 03/19/21 [History] Cyclobenzaprine [Flexeril] 10 mg PO DAILY PRN 03/19/21 [History] Desvenlafaxine [Pristiq ER] 100 mg PO DAILY 03/19/21 [History] Omeprazole 20 mg PO DAILY PRN 03/19/21 [History] QUEtiapine FUMARATE [SEROquel XR] 300 mg PO DAILY 03/19/21 [History] Trimix Injection 20 units SQ DAILY PRN 03/19/21 [History] amantadine HCL [Amantadine] 100 mg PO TID 03/19/21 [History] Levothyroxine Sodium [Levo-T] 137 mcg PO DAILY 08/21/22 [History] QUEtiapine [SEROquel] 50 mg PO HS 08/21/22 [History] Rosuvastatin Calcium 20 mg PO HS 08/21/22 [History] diazePAM [Valium] 2 mg PO DAILY PRN 08/21/22 [History] lamoTRIgine [LaMICtal] 150 mg PO BID 08/21/22 [History] polyethylene glycoL 3350 [Miralax] 17 gm PO DAILY PRN 08/21/22 [History] Isosorbide Mononitrate ER [Imdur] 30 mg PO DAILY 30 Days #30 tab 08/22/22 [Rx] Metoprolol Succinate (ER) [Toprol XL] 25 mg PO DAILY 30 Days #30 tab 08/22/22 [Rx] Follow up Appointment(s)/Referral(s): JITENDRA SORIANO DO [REFERRING] - 1 Week (Please follow up with your petroleum blending plant operator, Dr. Soriano with [facility].) Gen Hinkle MD [Primary Care Provider] - 1-2 days Patient Instructions/Handouts: Chest Pain (DC) Activity/Diet/Wound Care/Special Instructions: Activity: As tolerated. Take breaks as needed. Diet: Heart healthy and carb consistent diet. Avoid salts, or foods with hidden salts such as canned or boxed foods and frozen dinners. Extra salt makes your heart work harder and traps the fluid in your body for longer. Special Instructions: Take all of your medications as directed and remember to keep all of your doctor's appointments and follow-up as needed. Please follow up with your petroleum blending plant operator, Dr. Soriano with [facility] for recommended stress testing to be completed. Thank you for allowing us to participate in your care, it was truly a pleasure having you for our patient!!! Discharge Disposition: HOME SELF-CARE
--- NOTE | 2022-08-22 15:53 | CONS ---
CONSULTATION CHIEF COMPLAINT: Chest pain. HISTORY OF PRESENT ILLNESS: Mr. Foley is a 67-year-old gentleman with history of coronary artery disease, status post prior multivessel angioplasty, who follows with a freight rate specialist in the [facility], presents to us complaining of chest pain. His last angioplasty apparently was done in February of 2022. He complains of chest discomfort that is intermittent episodes of precordial chest pressure, [id number] intensity, not associated with diaphoresis, and there is no shortness of breath. The patient has had similar chest pain since angioplasty, but thought that this was worse than his usual episodes. He gradually became pain-free, and at the time of my evaluation this morning, he is chest pain free, hemodynamically stable, and is free of symptoms. On an EKG I performed, the patient has sinus rhythm, left axis deviation, and right bundle branch block. EKG changes are new compared to an EKG done little over a year ago. He has had 3 sets of cardiac enzymes that are all within normal limits. His D-dimer is normal. He underwent an echocardiogram that revealed normal LV systolic function with mild mitral, aortic, and tricuspid regurgitation. I talked to patient at length about his treatment options including invasive angiography, stress testing, continued optimal medical therapy. I discussed the pros and cons of each of these approaches. The patient understanding all the issues wishes to continue with medications, get discharged home and follow up with his own freight rate specialist. I asked him to see his freight rate specialist early next week. PAST MEDICAL HISTORY: Significant for coronary artery disease, status post multivessel angioplasty, details of which are not available to me at this time; hypertension; hypothyroidism; dyslipidemia; ankylosing spondylitis; Parkinson's; anxiety and depression. ALLERGIES: Include IV dye, insulin, shellfish, and Vicodin. FAMILY HISTORY: Negative for premature coronary artery disease. SOCIAL HISTORY: He denies smoking, EtOH abuse, or drug abuse. REVIEW OF SYSTEMS: 14 out of 14 review of systems has been performed, pertinents are as documented. PHYSICAL EXAMINATION: GENERAL: Comfortable at rest. VITAL SIGNS: Stable. NECK: There is no jugular venous distention. Carotid upstroke is normal. There is no bruit. CHEST: Reveals good air entry bilaterally. HEART: Reveals first and second heart sounds. No gallop. No murmur. No rub. ABDOMEN: Soft, nontender. EXTREMITIES: Did not reveal any edema. Peripheral pulses are felt. LABORATORY DATA: Labs show troponins are negative. Creatinine is normal at 1.5. Hemoglobin is 14.5. Platelet count is 149. ASSESSMENT: 1. Precordial chest pain. 2. Coronary artery disease, status post multivessel angioplasty. PLAN: From cardiac standpoint, the patient is doing well at this moment, stable. He does not wish to have invasive angiography or even a stress test. Discharge him home on aspirin, Lipitor, Plavix. Add nitrates and beta blockers. Followup with his own primary care physician. MMODL / IJN: [id number] /
[2022-08-24] MEDS ORDERED: ETANERCEPT 50 MG/ML SQ SCH (09:00)
== END 2022-08-22 15:11 | disposition home or self-care (01) ==
LOC: EC 10:46 → 6NMEDSUR 13:55
PROVIDERS: ADMIT Internal Medicine; ATTEND Internal Medicine
DX: R07.2 Precordial pain (principal); I25.10 Atherosclerotic heart disease of native coronary artery without angina pectoris; I10 Essential (primary) hypertension; E78.5 Hyperlipidemia, unspecified; M45.9 Ankylosing spondylitis of unspecified sites in spine; F41.9 Anxiety disorder, unspecified; G20 Parkinson's disease; G47.30 Sleep apnea, unspecified; E03.9 Hypothyroidism, unspecified; K21.9 Gastro-esophageal reflux disease without esophagitis; F31.9 Bipolar disorder, unspecified; I45.10 Unspecified right bundle-branch block; Z95.5 Presence of coronary angioplasty implant and graft; Z79.82 Long term (current) use of aspirin; Z79.02 Long term (current) use of antithrombotics/antiplatelets; Z79.899 Other long term (current) drug therapy; Z79.890 Hormone replacement therapy; Z79.60 Long term (current) use of unspecified immunomodulators and immunosuppressants; Z88.0 Allergy status to penicillin; Z88.5 Allergy status to narcotic agent
CPT/HCPCS: 96372; 99285; 36415; 93005; 93306; 85379; 80053; 83735; 84484; 85025; 85610; 85730; 71046; G0378 ×2; J1644

== ENCOUNTER 2023-03-07 13:35 | Emergency (ER) | payer MEDICARE ==
[2023-03-07 13:40] VITALS: TEMP 98.3
--- NOTE | 2023-03-07 14:59 | ED ---
General Adult HPI - General Chief complaint: Dizziness Stated complaint: Dizziness Time Seen by Provider: 03/07/23 14:45 Source: patient Mode of arrival: ambulatory Limitations: no limitations - History of Present Illness Initial comments: This patient is 67-year-old man here to have evaluation for dizziness and lightheadedness. Symptoms getting worse over about 3 days. Symptoms mainly present when up and walking, minimal at rest. No fever or chills. No chest pain, dyspnea, palpitations. No headache or neurologic symptoms. Onset/Timin -: days(s) Severity scale (1-10): 0 Consistency: intermittent Improves with: rest Worsens with: movement Associated Symptoms: denies other symptoms - Related Data Home Medications Medication Instructions Recorded Confirmed Etanercept [Enbrel] 50 mg SQ HINES 09/22/14 08/21/22 Aspirin EC [Ecotrin Low Dose] 81 mg PO DAILY 03/19/21 08/21/22 Carbidopa-Levodopa ER 50-200Mg 1 tab PO TID 03/19/21 08/21/22 [Sinemet CR 50-200 mg] Clopidogrel Bisulfate [Plavix] 75 mg PO DAILY 03/19/21 08/21/22 Cyclobenzaprine [Flexeril] 10 mg PO DAILY PRN 03/19/21 08/21/22 Desvenlafaxine [Pristiq ER] 100 mg PO DAILY 03/19/21 08/21/22 Omeprazole 20 mg PO DAILY PRN 03/19/21 08/21/22 QUEtiapine FUMARATE [SEROquel XR] 300 mg PO DAILY 03/19/21 08/21/22 Trimix Injection 20 units SQ DAILY PRN 03/19/21 08/21/22 amantadine HCL [Amantadine] 100 mg PO TID 03/19/21 08/21/22 Levothyroxine Sodium [Levo-T] 137 mcg PO DAILY 08/21/22 08/21/22 QUEtiapine [SEROquel] 50 mg PO HS 08/21/22 08/21/22 Rosuvastatin Calcium 20 mg PO HS 08/21/22 08/21/22 diazePAM [Valium] 2 mg PO DAILY PRN 08/21/22 08/21/22 lamoTRIgine [LaMICtal] 150 mg PO BID 08/21/22 08/21/22 polyethylene glycoL 3350 [Miralax] 17 gm PO DAILY PRN 08/21/22 08/21/22 Previous Rx's Medication Instructions Recorded Isosorbide Mononitrate ER [Imdur] 30 mg PO DAILY 30 Days #30 tab 08/22/22 Metoprolol Succinate (ER) [Toprol 25 mg PO DAILY 30 Days #30 tab 08/22/22 XL] Allergies Allergy/AdvReac Type Severity Reaction Status Date / Time hydrocodone bitartrate Allergy Itching Verified 03/07/23 13:40 [From Vicodin] iodine Allergy Diarrhea Verified 03/07/23 13:40 Penicillins Allergy Unknown Verified 03/07/23 13:40 shellfish derived Allergy Diarrhea Verified 03/07/23 13:40 Review of Systems ROS Statement: Those systems with pertinent positive or pertinent negative responses have been documented in the HPI. ROS Other: All systems not noted in ROS Statement are negative. Constitutional: Denies: fever, chills, weakness Eyes: Denies: vision change Respiratory: Denies: cough, dyspnea Cardiovascular: Denies: chest pain, palpitations, edema, syncope Gastrointestinal: Denies: abdominal pain, nausea, vomiting, diarrhea, melena, hematochezia Genitourinary: Denies: dysuria, hematuria Musculoskeletal: Denies: back pain Skin: Denies: rash Neurological: Denies: headache, weakness, numbness, vertigo Past Medical History Past Medical History: Coronary Artery Disease (CAD), GERD/Reflux, Hyperlipidemia, Hypertension, Musculoskeletal Disorder, Prostate Disorder, Sleep Apnea/CPAP/BIPAP, Thyroid Disorder Additional Past Medical History / Comment(s): SLEEP APNEA (DOES NOT USE MACHINE), BIPOLAR, ARTHRITIS, PAST HX OF CROHNS, ENLARGED PROSTATE, ANKYLOSING SPONDYLITIS, RLS, NEUROPATHY, STATES OCCASIONAL DIZZINESS. parkinsons History of Any Multi-Drug Resistant Organisms: None Reported Past Surgical History: Cholecystectomy, Heart Catheterization With Stent, Hernia Repair Additional Past Surgical History / Comment(s): lt ear surgery, lt foot surgery, rt rotator cuff surgery, nasal surgeries x2, colonoscopies Past Anesthesia/Blood Transfusion Reactions: No Reported Reaction Date of Last Stent Placement:: 02/27/2022 Past Psychological History: Anxiety, Bipolar, Depression Smoking Status: Never smoker Past Alcohol Use History: None Reported Past Drug Use History: None Reported - Past Family History Daughter(s) Additional Family Medical History / Comment(s): MS Father Family Medical History: Cancer General Exam Limitations: no limitations General appearance: alert, in no apparent distress Head exam: Present: atraumatic, normocephalic Eye exam: Present: normal appearance, PERRL, EOMI. Absent: scleral icterus, conjunctival injection, nystagmus ENT exam: Present: normal oropharynx, mucous membranes dry Neck exam: Present: normal inspection, full ROM. Absent: meningismus Respiratory exam: Present: normal lung sounds bilaterally. Absent: respiratory distress, wheezes, rales, rhonchi, stridor Cardiovascular Exam: Present: regular rate, normal rhythm, normal heart sounds. Absent: systolic murmur, diastolic murmur, rubs, gallop GI/Abdominal exam: Present: soft. Absent: distended, tenderness, guarding, rebound, rigid, mass Extremities exam: Present: normal inspection, normal capillary refill. Absent: pedal edema, calf tenderness Back exam: Present: normal inspection Neurological exam: Present: alert, oriented X3, CN II-XII intact. Absent: motor sensory deficit Skin exam: Present: warm, dry, intact, normal color, rash Course Vital Signs 03/07/23 03/07/23 03/07/23 13:38 14:30 15:00 Temperature 98.3 F Pulse Rate 91 85 83 Respiratory 18 21 20 Rate Blood Pressure 91/59 103/72 101/65 O2 Sat by Pulse 99 95 95 Oximetry 03/07/23 03/07/23 03/07/23 15:30 16:00 16:30 Temperature Pulse Rate 82 77 76 Respiratory 22 20 21 Rate Blood Pressure 115/72 122/75 O2 Sat by Pulse 95 95 95 Oximetry 03/07/23 17:46 Temperature Pulse Rate 78 Respiratory 22 Rate Blood Pressure 113/75 O2 Sat by Pulse 95 Oximetry EKG Findings - EKG Results: EKG: interpreted by ERMD, sinus rhythm (Rate 88 bpm) - Blocks, [place], Hypertrophy, ST Abn: AV and intraventricular conduction: right bundle branch block (fixed /intermittent, complete/incomplete), left anterior fascicular block Medical Decision Making - Medical Decision Making The patient had chest x-ray which I interpreted as being negative for acute infiltrate, pneumothorax, congestive heart failure Was pt. sent in by a medical professional or institution (, PA, GENERAL WORKER, urgent ca re, hospital, or long-term...) When possible be specific @ -[No] Did you speak to anyone other than the patient for history (EMS, parent, family, police, friend...)? What history was obtained from this source @ -[No] Did you review nursing and triage notes (agree or disagree)? Why? @ -[I reviewed and agree with nursing and triage notes] Were old charts reviewed (outside hosp., previous admission, EMS record, old EKG, old radiological studies, urgent care reports/EKG's, long-term records)? Report findings @ -[No old charts were reviewed] Differential Diagnosis (chest pain, altered mental status, abdominal pain women, abdominal pain men, vaginal bleeding, weakness, fever, dyspnea, syncope, headache, dizziness, GI bleed, back pain, seizure, CVA, palpatations, mental health, musculoskeletal)? @ -Differential Dizziness: Benign paroxysmal positional Vertigo, Menieres disease, otitis media, acoustic neuroma, vertebrobasilar insufficiency, cerebellar stroke, encephalitis, hypovolemic, arrhythmia, coronary artery syndrome, anemia, this is not meant to be an all-inclusive list EKG interpreted by me (3pts min.). @ -[As above] X-rays interpreted by me (1pt min.). @ -[As above CT interpreted by me (1pt min.). @ -[None done] U/S interpreted by me (1pt. min.). @ -[None done] What testing was considered but not performed or refused? (CT, X-rays, U/S, labs)? Why? @ -[None] What meds were considered but not given or refused? Why? @ -[None] Did you discuss the management of the patient with other professionals (professionals i.e. , PA, GENERAL WORKER, lab, RT, psych nurse, social insurance adviser, fur feeder, teacher, protective services officer, complex case manager)? Give summary @ -[No] Was smoking cessation discussed for >3mins.? @ -[No] Was critical care preformed (if so, how long)? @ -[No] Were there social determinants of health that impacted care today? How? (Homelessness, low income, unemployed, alcoholism, drug addiction, transportation, low edu. Level, literacy, decrease access to med. care, [facility], rehab)? @ -[No] Was there de-escalation of care discussed even if they declined (Discuss DNR or withdrawal of care, Hospice)? DNR status @ -[No] What co-morbidities impacted this encounter? (DM, HTN, Smoking, COPD, CAD, Cancer, CVA, ARF, Chemo, Hep., AIDS, mental health diagnosis, sleep apnea, morb id obesity)? @ -[None] Was patient admitted / discharged? Hospital course, mention meds given and route, prescriptions, significant lab abnormalities, going to OR and other pertinent info. @ -[Patient is 67-year-old man here with dizziness and lightheadedness. Clinically he does appear mildly dehydrated. Labs supportive of this diagnosis. The patient feeling better after IV fluids and would like to go home. We discussed appropriate further care and follow-up as well as return parameters. Undiagnosed new problem with uncertain prognosis? @ -[No] Drug Therapy requiring intensive monitoring for toxicity (Heparin, Nitro, Insulin, Cardizem)? @ -[No] Were any procedures done? @ -[No] Diagnosis/symptom? @ -[Acute dehydration Acute, or Chronic, or Acute on Chronic? @ -[default] Uncomplicated (without systemic symptoms) or Complicated (systemic symptoms)? @ -[Uncomplicated Side effects of treatment? @ -[No] Exacerbation, Progression, or Severe Exacerbation? @ -[No] Poses a threat to life or bodily function? How? (Chest pain, [place], [place], pneumonia, PE, COPD, DKA, ARF, appy, cholecystitis, CVA, Diverticulitis, Homicidal, Suicidal, threat to staff... and all critical care pts) @ -[No] - Lab Data Result diagrams: 03/07/23 15:03 03/07/23 15:03 Lab Results 03/07/23 03/07/23 03/07/23 Range/Units 15:03 15:03 15:03 WBC 7.3 (3.8-10.6) k/uL RBC 4.49 (4.30-5.90) m/uL Hgb 14.0 (13.0-17.5) gm/dL Hct 43.1 (39.0-53.0) % MCV 96.0 (80.0-100.0) fL MCH 31.1 (25.0-35.0) pg MCHC 32.4 (31.0-37.0) g/dL RDW 13.6 (11.5-15.5) % Plt Count 201 (150-450) k/uL MPV 6.8 Neutrophils % 62 % Lymphocytes % 25 % Monocytes % 7 % Eosinophils % 3 % Basophils % 0 % Neutrophils # 4.5 (1.3-7.7) k/uL Lymphocytes # 1.8 (1.0-4.8) k/uL Monocytes # 0.5 (0-1.0) k/uL Eosinophils # 0.2 (0-0.7) k/uL Basophils # 0.0 (0-0.2) k/uL Sodium 135 L (137-145) mmol/L Potassium 4.3 (3.5-5.1) mmol/L Chloride 104 (98-107) mmol/L Carbon Dioxide 22 (22-30) mmol/L Anion Gap 9 mmol/L BUN 28 H (9-20) mg/dL Creatinine 1.20 (0.66-1.25) mg/dL Est GFR (CKD-EPI)AfAm 72 (>60 ml/min/1.73 sqM) Est GFR (CKD-EPI)NonAf 62 (>60 ml/min/1.73 sqM) Glucose 120 H (74-99) mg/dL Plasma Lactic Acid Kimo (0.7-2.0) mmol/L Calcium 8.9 (8.4-10.2) mg/dL Total Bilirubin 0.7 (0.2-1.3) mg/dL AST 22 (17-59) U/L ALT 13 (4-49) U/L Alkaline Phosphatase 67 (38-126) U/L Troponin I (0.000-0.034) ng/mL Total Protein 7.4 (6.3-8.2) g/dL Albumin 4.1 (3.5-5.0) g/dL Urine Color Yellow Urine Appearance Clear (Clear) Urine pH 6.5 (5.0-8.0) Ur Specific [place] 1.019 (1.001-1.035) Urine Protein Trace H (Negative) Urine Glucose (UA) Negative (Negative) Urine Ketones Trace H (Negative) Urine Blood Small H (Negative) Urine Nitrite Negative (Negative) Urine Bilirubin Negative (Negative) Urine Urobilinogen 2.0 (<2.0) mg/dL Ur Leukocyte Esterase Negative (Negative) Urine RBC 12 H (0-5) /hpf Urine WBC 1 (0-5) /hpf Hyaline Casts 1 (0-2) /lpf Urine Mucus Occasional H (None) /hpf 03/07/23 03/07/23 Range/Units 15:03 15:03 WBC (3.8-10.6) k/uL RBC (4.30-5.90) m/uL Hgb (13.0-17.5) gm/dL Hct (39.0-53.0) % MCV (80.0-100.0) fL MCH (25.0-35.0) pg MCHC (31.0-37.0) g/dL RDW (11.5-15.5) % Plt Count (150-450) k/uL MPV Neutrophils % % Lymphocytes % % Monocytes % % Eosinophils % % Basophils % % Neutrophils # (1.3-7.7) k/uL Lymphocytes # (1.0-4.8) k/uL Monocytes # (0-1.0) k/uL Eosinophils # (0-0.7) k/uL Basophils # (0-0.2) k/uL Sodium (137-145) mmol/L Potassium (3.5-5.1) mmol/L Chloride (98-107) mmol/L Carbon Dioxide (22-30) mmol/L Anion Gap mmol/L BUN (9-20) mg/dL Creatinine (0.66-1.25) mg/dL Est GFR (CKD-EPI)AfAm (>60 ml/min/1.73 sqM) Est GFR (CKD-EPI)NonAf (>60 ml/min/1.73 sqM) Glucose (74-99) mg/dL Plasma Lactic Acid Kim[place] 1.5 (0.7-2.0) mmol/L Calcium (8.4-10.2) mg/dL Total Bilirubin (0.2-1.3) mg/dL AST (17-59) U/L ALT (4-49) U/L Alkaline Phosphatase (38-126) U/L Troponin I <0.012 (0.000-0.034) ng/mL Total Protein (6.3-8.2) g/dL Albumin (3.5-5.0) g/dL Urine Color Urine Appearance (Clear) Urine pH (5.0-8.0) Ur Specific [place] (1.001-1.035) Urine Protein (Negative) Urine Glucose (UA) (Negative) Urine Ketones (Negative) Urine Blood (Negative) Urine Nitrite (Negative) Urine Bilirubin (Negative) Urine Urobilinogen (<2.0) mg/dL Ur Leukocyte Esterase (Negative) Urine RBC (0-5) /hpf Urine WBC (0-5) /hpf Hyaline Casts (0-2) /lpf Urine Mucus (None) /hpf Disposition Clinical Impression: Dehydration Disposition: HOME SELF-CARE Condition: Good Instructions (If sedation given, give patient instructions): Dehydration (ED) Is patient prescribed a controlled substance at d/c from ED?: No Referrals: Gen Hinkle MD [Primary Care Provider] - 1-2 days
[2023-03-07] MEDS ORDERED: SODIUM CHLORIDE 0.9% 1,000 ML IV ONE (15:01)
[2023-03-07 15:23] LABS: Basophils % (A) 0 %; Eosinophils # (A) 0.2 k/uL (0-0.7); Eosinophils % (A) 3 %; HCT 43.1 % (39.0-53.0); Lymphocytes # (A) 1.8 k/uL (1.0-4.8); Lymphocytes % (A) 25 %; MCH 31.1 pg (25.0-35.0); MCHC 32.4 g/dL (31.0-37.0); Mean Platelet Volume 6.8; Monocytes # (A) 0.5 k/uL (0-1.0); Monocytes % (A) 7 %; Neutrophils # (A) 4.5 k/uL (1.3-7.7); Neutrophils % (A) 62 %; Platelet Count 201 k/uL (150-450); RBC 4.49 m/uL (4.30-5.90); RDW 13.6 % (11.5-15.5); WBC 7.3 k/uL (3.8-10.6)
--- NOTE | 2023-03-07 15:23 | XR ---
EXAMINATION TYPE: XR chest 1V portable DATE OF EXAM: 03/07/2023 COMPARISON: 08/21/2022 HISTORY: Dizziness and hypertension TECHNIQUE: Single frontal view of the chest is obtained. FINDINGS: There is no focal air space opacity, pleural effusion, or pneumothorax seen. The cardiac silhouette size is within normal limits. The osseous structures are intact. IMPRESSION: No acute process.
[2023-03-07 15:28] LABS: ALT 13 U/L (4-49); AST 22 U/L (17-59); African American GFR (CKD) 72 (>60 ml/min/1.73 sqM); Albumin 4.1 g/dL (3.5-5.0); Alkaline Phosphatase 67 U/L (38-126); Anion Gap 9 mmol/L; Blood Urea Nitrogen 28 mg/dL (9-20); Calcium 8.9 mg/dL (8.4-10.2); Carbon Dioxide 22 mmol/L (22-30); Chloride 104 mmol/L (98-107); Glucose 120 mg/dL (74-99); Non-African American GFR(CKD) 62 (>60 ml/min/1.73 sqM); Potassium 4.3 mmol/L (3.5-5.1); Sodium 135 mmol/L (137-145); Total Bilirubin 0.7 mg/dL (0.2-1.3); Total Protein 7.4 g/dL (6.3-8.2)
[2023-03-07 16:34] LABS: Appearance,Urine Clear (Clear); Bilirubin,Urine Negative (Negative); Blood,Urine Small (Negative); Color,Urine Yellow; Glucose,Urine (UA) Negative (Negative); Hyaline Casts,Urine 1 /lpf (0-2); Ketones,Urine Trace (Negative); Leukocyte Esterase,Urine Negative (Negative); Mucus,Urine Occasional /hpf; Nitrite,Urine Negative (Negative); PH, Urine 6.5 (5.0-8.0); Protein,Urine Trace (Negative); RBC,Urine 12 /hpf (0-5); Specific Gravity,Urine 1.019 (1.001-1.035); WBC,Urine 1 /hpf (0-5)
[2023-03-07 17:47] VITALS: BP 113/75; PULSE 78; RESP 22
== END 2023-03-07 17:47 | disposition home or self-care (01) ==
LOC: EC 13:35
DX: E86.0 Dehydration (principal); F41.9 Anxiety disorder, unspecified; G47.30 Sleep apnea, unspecified; I10 Essential (primary) hypertension; I25.10 Atherosclerotic heart disease of native coronary artery without angina pectoris; K21.9 Gastro-esophageal reflux disease without esophagitis; F31.9 Bipolar disorder, unspecified; E07.9 Disorder of thyroid, unspecified; Z79.82 Long term (current) use of aspirin; Z79.890 Hormone replacement therapy; Z79.02 Long term (current) use of antithrombotics/antiplatelets; Z79.899 Other long term (current) drug therapy; Z88.0 Allergy status to penicillin; Z88.5 Allergy status to narcotic agent; Z91.013 Allergy to seafood; Z90.49 Acquired absence of other specified parts of digestive tract
CPT/HCPCS: 36415; 71045; 80053; 81001; 83605; 84484; 85025; 93005; 96360; 96361; 99284

== ENCOUNTER → 2023-05-13 | Outpatient (CLI) | payer MEDICARE ==
--- NOTE | 2023-05-13 15:18 | P.PN ---
Subjective DATE: 05/13/2023 FOLLOW UP VISIT. Patient with obstructive sleep apnea hypopnea syndrome return to sleep center for follow-up visit. Information from previous visit have been reviewed. Patient is using PAP equipment every night for the whole night, getting PAP supplies in time. The patient does not have significant problems with the mask, PAP unit and humidification. [place] sleepiness scale is 6, which is in normal range. I checked information from PAP unit. PAP unit pressure 5-13, average 9.3 cm H2O. Usage is 100 % for more then 4 hours, average 8.5 hours per night. Leak is increased to 42.7 l/m.. Apnea Hypopnea Index is 2.7, which is normal. Sometimes patient has episodes of out of dream movements during the sleep. I discussed with him possibility to use medications to prevent out of dream movements, but patient to prefer not to start any additional medication the present time. MEDICATIONS:1. Seroquel 300 mg once a day 2. Cyclobenzaprine 10 mg as needed 3. Rosuvastatin 20 mg once a day 4. Sinemet 50924 milligrams 3 times a day 5. Plavix 75 mg once a day 6. Metoprolol 25 mg once a day 7. Diazepam 2 mg as needed 8. Isosorbide 30 mg once a day During physical exam: GENERAL: A pleasant patient without any distress. VITAL SIGNS: BP 113/69, HR 79, RR 12 , weight 212.4, temperature 97.6, oxygen saturation at room air 95 % . HEENT: PERRLA, EOMI.low position of soft palate, Mallapati 4 . NECK: Supple. No JVD. LUNGS: Clear to percussion and to auscultation. Good air exchange. No wheezing or rhonchi. HEART: S1, S2 regular. ABDOMEN: Soft and nontender.[] EXTREMITIES: No clubbing or cyanosis. MANAGER PMO: Awake, alert, and oriented x3. No focal deficit. Impressions: 1. Obstructive sleep apnea-hypopnea syndrome. Patient demonstrated great compliance with treatment, benefiting from treatment. 2. Episodes of out of dream movements. Possibly REM sleep behavior disorder. 3. History of anxiety. 4. History of bipolar. 5. Parkinson disease. 6. Hypertension. 7. Acid reflux. 8. BPH. 9. Hyperlipidemia. 10. History of ankylosing spondylitis. 11. Status post surgical treatment for nasal septum deviation. 12. Status post surgical treatment for rotator cuff problems. Plan: 1. Continue using PAP equipment every night for the whole night. 2. To change air filter at least 1-2 times per month. 3. PAP unit should stay lower then position of the head. 4. Advised patient to remove all remaining water from humidifier canister daily and make it dry after each usage. Refill canister with fresh distilled water before each usage. 5. Sleep hygiene with regular time in bed for at least 8 hours. 6. Precautions related to driving. No driving if feel any sleepiness. 7. I will maintain prescription for PAP supplies including mask, tube, filters. 8. Follow up visit in 6 months or earlier if patient has any problems. 9. Watching weight. 10. I discussed with patient possibility to start treatment with clonazepam to prevent out of dream movements. But the patient prefers not to start any additional medications are present time. I discuss with him precautions related to possibly REM sleep behavior disorder. Thank you very much for allowing me to participate in the management of your patient. Shad Isidro MD, PhD, FAASM. Diplomat of [place] [employer], Sleep Medicine Board by [place] [employer] Employee Relations Manager of [facility] [place]
== END ==
LOC: 3 N SLEEP 13:29
PROVIDERS: ATTEND Internal Medicine
DX: G47.33 Obstructive sleep apnea (adult) (pediatric) (principal); F41.9 Anxiety disorder, unspecified; G20 Parkinson's disease; M45.9 Ankylosing spondylitis of unspecified sites in spine; E78.5 Hyperlipidemia, unspecified; I10 Essential (primary) hypertension; K21.9 Gastro-esophageal reflux disease without esophagitis; N40.0 Benign prostatic hyperplasia without lower urinary tract symptoms; F31.9 Bipolar disorder, unspecified; Z79.02 Long term (current) use of antithrombotics/antiplatelets; Z79.899 Other long term (current) drug therapy; Z98.890 Other specified postprocedural states; Z99.89 Dependence on other enabling machines and devices; Z88.5 Allergy status to narcotic agent; Z88.0 Allergy status to penicillin; Z88.8 Allergy status to other drugs, medicaments and biological substances; Z91.013 Allergy to seafood
CPT/HCPCS: 99212

== ENCOUNTER → 2023-11-18 | Outpatient (CLI) | payer MEDICARE ==
[2023-11-18 14:00] VITALS: BP 156/87; PULSE 80; RESP 20; TEMP 98.1
--- NOTE | 2023-11-18 14:15 | P.PN ---
Subjective DATE: 11/18/2023 FOLLOW UP VISIT. Patient with obstructive sleep apnea hypopnea syndrome return to sleep center for follow-up visit. Information from previous visit have been reviewed. Patient is using PAP equipment every night for the whole night, getting PAP supplies in time. The patient does not have significant problems with the mask, PAP unit and humidification. [place] sleepiness scale is 4, which is normal. I checked information from PAP unit. PAP unit pressure 5-13, average 9.3 cm H2O. Usage is 100% for more then 4 hours, average 9.3 hours per night. Leak is increased to 33.2 l/m. Apnea Hypopnea Index is 2.4, which is normal. MEDICATIONS:1. Seroquel 200 mg once a day 2. Pristiq 100 mg once a day 3. Enbrel 50 mg once a week 4. Cyclobenzaprine 10 mg as needed 5. Rosuvastatin 20 mg once a day 6. Omeprazole 40 mg once a day 7. Clopidogrel 75 mg once a day 8. Levothyroxine 125 mcg once a day During physical exam: GENERAL: A pleasant patient without any distress. VITAL SIGNS: Please see below. HEENT: PERRLA, EOMI.low position of soft palate, Mallapati 4 . NECK: Supple. No JVD. LUNGS: Clear to percussion and to auscultation. Good air exchange. No wheezing or rhonchi. HEART: S1, S2 regular. ABDOMEN: Soft and nontender.[] EXTREMITIES: No clubbing or cyanosis. PC INSTALLATION ENGINEER: Awake, alert, and oriented x3. No focal deficit. Impressions: 1. Obstructive sleep apnea-hypopnea syndrome. Patient demonstrated great compliance with treatment, benefiting from treatment. 2. Some episodes of out of dream movements, possibly REM sleep behavioral disorder. 3. History of anxiety. 4. History of bipolar. 5. Parkinson's disease. 6. Acid reflux. 7. Hypertension. 8. Hyperlipidemia. 9. History of ankylosing spondylitis. 10. Status post surgical correction for nasal septum deviation. 11. Status post surgical treatment for rotator cuff problems. Plan: 1. Continue using PAP equipment every night for the whole night. 2. To change air filter at least 1-2 times per month. 3. PAP unit should stay lower then position of the head. 4. Advised patient to remove all remaining water from humidifier canister daily and make it dry after each usage. Refill canister with fresh distilled water before each usage. 5. Sleep hygiene with regular time in bed for at least 8 hours. 6. Precautions related to driving. No driving if feel any sleepiness. 7. I will maintain prescription for PAP supplies including mask, tube, filters. 8. Follow up visit in 6 months or earlier if patient has any problems. 9. Watching and losing weight. 10. Patient prefers not to use additional medications for the movements during sleep. Precautions related to possibility of REM sleep behavioral disorder. Thank you very much for allowing me to participate in the management of your patient. Shad Isidro MD, PhD, FAASM. Diplomat of [place], Sleep Medicine Board by [place] Car Repair Supervisor of [facility] [place] Objective - Vital Signs Vital signs: Vital Signs Temp 98.1 F 11/18/23 13:50 Pulse 80 11/18/23 13:50 Resp 20 11/18/23 13:50 BP 156/87 11/18/23 13:50 Pulse Ox 95 11/18/23 13:50 FiO2 Intake & Output 11/17/23 11/18/23 11/18/23 18:59 06:59 18:59 Weight 99.79 kg
== END ==
LOC: 3 N SLEEP 13:15
PROVIDERS: ATTEND Internal Medicine
DX: G47.33 Obstructive sleep apnea (adult) (pediatric) (principal); E78.5 Hyperlipidemia, unspecified; I10 Essential (primary) hypertension; G20.A1 Parkinson's disease without dyskinesia, without mention of fluctuations; K21.9 Gastro-esophageal reflux disease without esophagitis; M45.9 Ankylosing spondylitis of unspecified sites in spine; F41.9 Anxiety disorder, unspecified; F31.9 Bipolar disorder, unspecified; Z99.89 Dependence on other enabling machines and devices; Z98.890 Other specified postprocedural states; Z79.02 Long term (current) use of antithrombotics/antiplatelets; Z79.899 Other long term (current) drug therapy; Z88.5 Allergy status to narcotic agent; Z88.8 Allergy status to other drugs, medicaments and biological substances; Z88.0 Allergy status to penicillin; Z91.013 Allergy to seafood
CPT/HCPCS: 99212

== ENCOUNTER 2024-04-19 12:00 | Day surgery (SDC) | payer MEDICARE ==
[2024-04-19] MEDS ORDERED: PROPOFOL 10 MG/ML 20 ML VIAL IV ONE (12:07)
--- NOTE | 2024-05-25 10:19 | OP ---
OPERATIVE REPORT DATE OF SERVICE : 04/19/2024 REQUESTING PHYSICIAN: Dr. Gen Hinkle. The patient is a 69-year-old pleasant white male scheduled for elective colonoscopy as a part of evaluation with prior history of Crohn's ileitis that was diagnosed approximately 25 years ago. He has been in clinical remission for several years since maintenance medications. Last colonoscopy was in 2014, that was unremarkable. PROCEDURE PERFORMED: Colonoscopy. PREOPERATIVE DIAGNOSIS: Screening for colon cancer/history of Crohn's disease. ANESTHESIA: IV sedation per Anesthesia. DESCRIPTION OF PROCEDURE: After informed consent was obtained from the patient, he was brought into the endoscopy unit. IV conscious sedation was administered by Anesthesia and continuous monitoring. Initial digital rectal examination was normal. The Olympus CF-180 video colonoscope was done in the rectum and was gradually advanced to the cecum with [id number] difficulty. Digital examination was performed. The scope was gradually being withdrawn. Ileocecal valve and appendiceal office were visualized and being normal. The prep was excellent. The terminal ileum was not visualized. Mucosa of the cecum, ascending colon, transverse colon, descending colon, sigmoid colon, and rectum appeared normal. In the rectum, retroflexion was performed. No lesions were noted and the patient tolerated the procedure well. IMPRESSION: Normal-appearing colon from rectum to cecum with no evidence of colitis or colorectal neoplasia. RECOMMENDATIONS: Findings of this examination were discussed with the patient as well as his family. He was advised to have a repeat colonoscopy in 5 years from now because of history of Crohn's disease. MMODL / IJN: [id number] /
== END 2024-04-19 13:20 ==
LOC: ORWHC2ENDO 12:00
PROVIDERS: ATTEND Internal Medicine Gastroenterology
DX: Z12.11 Encounter for screening for malignant neoplasm of colon (principal); I10 Essential (primary) hypertension; E78.5 Hyperlipidemia, unspecified; I25.10 Atherosclerotic heart disease of native coronary artery without angina pectoris; E07.9 Disorder of thyroid, unspecified; K21.9 Gastro-esophageal reflux disease without esophagitis; F32.A Depression, unspecified; F41.9 Anxiety disorder, unspecified; G20.A1 Parkinson's disease without dyskinesia, without mention of fluctuations; Z86.010 Personal history of colon polyps; Z88.0 Allergy status to penicillin; Z88.5 Allergy status to narcotic agent; Z79.1 Long term (current) use of non-steroidal anti-inflammatories (NSAID); Z79.899 Other long term (current) drug therapy
CPT/HCPCS: 45378

== ENCOUNTER → 2024-06-09 | Outpatient (CLI) | payer MEDICARE ==
[2024-06-09 13:15] VITALS: BP 138/81; PULSE 78; RESP 16; TEMP 97.9
--- NOTE | 2024-06-09 13:47 | P.PROGSL ---
Subjective DATE: 06/09/2024 FOLLOW UP VISIT. Patient with obstructive sleep apnea hypopnea syndrome return to sleep center for follow-up visit. Information from previous visit have been reviewed. Patient is using PAP equipment every night for the whole night, getting PAP supplies in time. The patient does not have significant problems with the mask, PAP unit and humidification. [place] sleepiness scale is 2, which is normal. I checked information from PAP unit. PAP unit pressure 5-13, average 9.8 cm H2O. Usage is 100% for more then 4 hours, average 8.3 hours per night. Leak is increased to 36 l/m. Apnea Hypopnea Index is 3.3 for extended period of time, which is normal. Patient has significant amount of movements during the sleep. MEDICATIONS have been reviewed, please see below. During physical exam: GENERAL: A pleasant patient without any distress. VITAL SIGNS: Please see below, weight is 217 lbs. HEENT: PERRLA, EOMI.low position of soft palate, Mallapati 4 . NECK: Supple. No JVD. LUNGS: Clear to percussion and to auscultation. Good air exchange. No wheezing or rhonchi. HEART: S1, S2 regular. ABDOMEN: Soft and nontender. Obese EXTREMITIES: No clubbing or cyanosis. RICE DRIER: Awake, alert, and oriented x3. No focal deficit. Impressions: 1. Obstructive sleep apnea-hypopnea syndrome. Patient demonstrated great compliance with treatment, benefiting from treatment. 2. Obesity, BMI 32. 3. Significant amount of movements during the sleep, possibly REM sleep behavioral disorder. 4. History of anxiety. 5. History of bipolar. 6. Parkinson's disease. 7. Acid reflux. 8. Hypertension. 9. Hyperlipidemia. 10. History of ankylosing spondylitis. 11. Status post surgical treatment for rotator cuff problems. 12. Status post surgical treatment for nasal septum deviation. Plan: 1. Continue using PAP equipment every night for the whole night. 2. Sleep hygiene with regular time in bed for at least 7.5-8 hours 3. PAP unit should stay lower then position of the head. 4. Advised patient to remove all remaining water from humidifier canister daily and make it dry after each usage. Refill canister with fresh distilled water before each usage. 5. Watching and losing weight. 6. Precautions related to driving. No driving if feel any sleepiness. 7. I will maintain prescription for PAP supplies including mask, tube, filters. 8. Follow up visit in 4 months or earlier if patient has any problems. 9. Patient will be started on clonazepam 0.5 mg at bedtime with a goal to prevent any significant movements during sleep. Thank you very much for allowing me to participate in the management of your patient. Shad Isidro MD, PhD, FAASM. Diplomat of [place] [employer], Sleep Medicine Board by [place] [employer] Representative of [facility] [place] cc: Gen Hinkle MD Objective - Vital Signs Vital Signs: Vital Signs Temp 97.9 F 06/09/24 13:14 Pulse 78 06/09/24 13:14 Resp 16 06/09/24 13:14 BP 138/81 06/09/24 13:14 Pulse Ox 94 L 06/09/24 13:14 FiO2 Intake & Output 06/08/24 06/09/24 06/09/24 18:59 06:59 18:59 Weight 98.43 kg Home Medications: Home Medications Medication Instructions Recorded Confirmed Type Etanercept [Enbrel] 50 mg SQ HINES 09/22/14 06/09/24 History Aspirin EC [Ecotrin Low Dose] 81 mg PO DAILY 03/19/21 06/09/24 History Carbidopa-Levodopa ER 50-200Mg 1 tab PO TID 03/19/21 06/09/24 History [Sinemet CR 50-200 mg] Clopidogrel Bisulfate [Plavix] 75 mg PO DAILY 03/19/21 11/18/23 History Cyclobenzaprine [Flexeril] 10 mg PO DAILY PRN 03/19/21 06/09/24 History Desvenlafaxine [Pristiq ER] 100 mg PO DAILY 03/19/21 06/09/24 History Omeprazole 40 mg PO DAILY PRN 03/19/21 06/09/24 History amantadine HCL [Amantadine] 100 mg PO TID 03/19/21 11/18/23 History Levothyroxine Sodium [Levo-T] 125 mcg PO DAILY 08/21/22 06/09/24 History QUEtiapine [SEROquel] 50 mg PO HS 08/21/22 06/09/24 History Rosuvastatin Calcium 20 mg PO HS 08/21/22 06/09/24 History diazePAM [Valium] 2 mg PO DAILY PRN 08/21/22 11/18/23 History lamoTRIgine [LaMICtal] 150 mg PO BID 08/21/22 11/18/23 History Metoprolol Succinate (ER) [Toprol 25 mg PO DAILY 30 Days #30 tab 08/22/22 06/09/24 Rx XL] Celecoxib [CeleBREX] 200 mg PO ONCE 11/18/23 11/18/23 History Fludrocortisone [Florinef] 0.1 mg PO BID 11/18/23 06/09/24 History
== END ==
LOC: 3 N SLEEP 13:02
PROVIDERS: ATTEND Internal Medicine
DX: G47.33 Obstructive sleep apnea (adult) (pediatric) (principal); E66.9 Obesity, unspecified; K21.9 Gastro-esophageal reflux disease without esophagitis; I10 Essential (primary) hypertension; G47.52 REM sleep behavior disorder; E78.5 Hyperlipidemia, unspecified; G20.A1 Parkinson's disease without dyskinesia, without mention of fluctuations; Z98.890 Other specified postprocedural states; Z87.39 Personal history of other diseases of the musculoskeletal system and connective tissue; Z88.8 Allergy status to other drugs, medicaments and biological substances; Z88.5 Allergy status to narcotic agent; Z88.0 Allergy status to penicillin; Z91.013 Allergy to seafood; Z68.32 Body mass index [BMI] 32.0-32.9, adult; Z86.59 Personal history of other mental and behavioral disorders; Z99.89 Dependence on other enabling machines and devices; Z79.02 Long term (current) use of antithrombotics/antiplatelets; Z79.899 Other long term (current) drug therapy
CPT/HCPCS: 99212

== ENCOUNTER → 2024-08-02 | Outpatient (CLI) | payer MEDICARE ==
--- NOTE | 2024-08-03 12:48 | MR ---
EXAM: MR hips BILAT wo con DATE OF EXAM: 08/02/2024 COMPARISON: None available HISTORY: bilateral hip pain. TECHNIQUE: Multiplanar, multisequence images of the bilateral hips were acquired without contrast. FINDINGS: BONES/MARROW: Normal bone marrow signal. Mild thinning of the superior femoral head and superior acet abular articular cartilage. No joint effusion. LABRUM: Grossly intact, given the limitations of a nonarthrographic exam. SOFT TISSUES: Increased intrasubstance signal of the left hamstrings tendon, relating to tendinosis.. No bursal distention. No fluid collection. NEUROVASCULAR: Visualized neurovascular structures are normal. OTHER: Visualized intrapelvic structures are normal.. No mass. No lymphadenopathy. IMPRESSION: Left common hamstrings tendinosis. [facility], Workstation: [employer], 08/03/2024 12:46 PM
--- NOTE | 2024-08-05 17:21 | MR ---
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 COMPARISONS: CT chest abdomen and pelvis 03/19/2021, MRI lumbar spine 02/19/2019, 10/06/2018, lumbar spi ne radiographs 02/03/2019, 09/09/2018, 05/02/2014. TECHNIQUE: Multi planar, multi sequence imaging was performed utilizing: T1-weighted, T2-weighted, a nd turbo inversion recovery imaging of the lumbar spine. The patient was not given contrast. FINDINGS: The lumbar vertebral bodies do have preserved heights. Grade 1 anterolisthesis of L5 on S1 with bilateral pars defects. Multilevel anterior osteophytosis. Multilevel disc desiccation is prese nt. Lower lumbar spine multilevel disc space narrowing. The conus medullaris and the distal spinal co rd do appear unremarkable with regards to their signal intensity and morphology. T12-L1: No significant disc pathology is identified. The spinal canal and neural foramen are patent L1-L2: No significant disc pathology is identified. The spinal canal and neural foramen are patent. L2-L3: Central disc protrusion with annular fissure resulting in mild effacement of anterior thecal sac. Bilateral facet arthropathy. Minimal bilateral neural foraminal stenosis. L3-L4: Broad-based disc bulge is identified with associated enlargement of the facet joints. There i s mild effacement of the anterior thecal sac. Neural canals are mildly narrowed bilaterally. L4-L5: Broad-based disc bulge is identified with associated enlargement of the facet joints. There i s minimal effacement of the anterior thecal sac. Neural canals are moderately narrowed bilaterally. L5-S1: Grade 1 anterolisthesis with uncovering the disc. Prominent epidural fat is demonstrated. The intervertebral disc appears round on its contour posteriorly without significant mass effect upon the thecal sac. Facet joints are enlarged. Neural canals do remain patent. Other significant findings: Partial visualization of a large T2 signal hyperintense right renal cyst. IMPRESSION: 1. Multilevel disc degeneration with associated osteoarthritic changes of the mid to lower lumbar sp ine redemonstrated as described above. Disc herniation at L2-L3 with mild effacement of the anterior thecal sac. 2. Grade 1 anterolisthesis L5-S1 with bilateral pars defects. [facility], , 08/05/2024 5:18 PM
== END | disposition home or self-care (01) ==
LOC: RADMRIMAIN 16:25
PROVIDERS: ATTEND Student in an Organized Health Care Education/Training Program
DX: M51.369 Other intervertebral disc degeneration, lumbar region without mention of lumbar back pain or lower extremity pain (principal); M51.26 Other intervertebral disc displacement, lumbar region; M16.0 Bilateral primary osteoarthritis of hip; M47.817 Spondylosis without myelopathy or radiculopathy, lumbosacral region; M43.17 Spondylolisthesis, lumbosacral region
CPT/HCPCS: 72148

== ENCOUNTER → 2024-10-06 | Outpatient (CLI) | payer MEDICARE ==
[2024-10-06 13:21] VITALS: BP 161/89; PULSE 75; RESP 18; TEMP 98.1
--- NOTE | 2024-10-06 13:50 | P.PROGSL ---
Subjective DATE: 10/06/2024 FOLLOW UP VISIT. Patient with obstructive sleep apnea hypopnea syndrome return to sleep center for follow-up visit. Information from previous visit have been reviewed. Patient is using PAP equipment every night for the whole night, getting PAP supplies in time. The patient does not have significant problems with the mask, PAP unit and humidification. [place] sleepiness scale is 4, which is normal. I checked information from PAP unit. PAP unit pressure 13, average 10.5 cm H2O. Usage is 100% for more then 4 hours, average 8.75 hours per night. Leak is increased to 39.2 l/m. Apnea Hypopnea Index is slightly increased to 7.1. MEDICATIONS have been reviewed, please see below. During physical exam: GENERAL: A pleasant patient without any distress. VITAL SIGNS: Please see below, weight is 220 lbs. HEENT: PERRLA, EOMI.low position of soft palate, Mallapati 4 . NECK: Supple. No JVD. LUNGS: Clear to percussion and to auscultation. Good air exchange. No wheezing or rhonchi. HEART: S1, S2 regular. ABDOMEN: Soft and nontender. Slightly obese EXTREMITIES: No clubbing or cyanosis. ORACLE PROGRAMMER: Awake, alert, and oriented x3. No focal deficit. Impressions: 1. Obstructive sleep apnea-hypopnea syndrome. Patient demonstrated great compliance with treatment, benefiting from treatment. 2. Obesity, BMI 32.4. 3. History of significant amount of movements during the sleep possible REM sleep behavioral disorder. 4. Anxiety. 5. Parkinson disease. 6. Bipolar. 7. Acid reflux. 8. Hypertension. 9. Hyperlipidemia. 10. History of ankylosing spondylitis. 11. Status post surgical treatment for nasal septum deviation. 12. Status post surgical treatment for rotator cuff problems. I increased range of pressure 5-15 cm of water. Plan: 1. Continue using PAP equipment every night for the whole night. 2. Sleep hygiene with regular time in bed for at least 7.5-8 hours 3. PAP unit should stay lower then position of the head. 4. Advised patient to remove all remaining water from humidifier canister daily and make it dry after each usage. Refill canister with fresh distilled water before each usage. 5. Watching and losing weight. 6. Precautions related to driving. No driving if feel any sleepiness. 7. I will maintain prescription for PAP supplies including mask, tube, filters. 8. Follow up visit in 8 months or earlier if patient has any problems. Thank you very much for allowing me to participate in the management of your patient. Shad Isidro MD, PhD, FAASM. Diplomat of [place] [employer], Sleep Medicine Board by [place] [employer] [facility] [place] Objective - Vital Signs Vital Signs: Vital Signs Temp 98.1 F 10/06/24 13:18 Pulse 75 10/06/24 13:18 Resp 18 10/06/24 13:18 BP 161/89 10/06/24 13:18 Pulse Ox 95 10/06/24 13:18 FiO2 Intake & Output 10/05/24 10/06/24 10/06/24 18:59 06:59 18:59 Weight 99.79 kg Home Medications: Home Medications Medication Instructions Recorded Confirmed Type Etanercept [Enbrel] 50 mg SQ HINES 09/22/14 10/06/24 History Aspirin EC [Ecotrin Low Dose] 81 mg PO DAILY 03/19/21 10/06/24 History Carbidopa-Levodopa ER 50-200Mg 1 tab PO TID 03/19/21 10/06/24 History [Sinemet CR 50-200 mg] Clopidogrel Bisulfate [Plavix] 75 mg PO DAILY 03/19/21 11/18/23 History Cyclobenzaprine [Flexeril] 10 mg PO DAILY PRN 03/19/21 10/06/24 History Desvenlafaxine [Pristiq ER] 150 mg PO DAILY 03/19/21 10/06/24 History Omeprazole 40 mg PO DAILY PRN 03/19/21 10/06/24 History amantadine HCL [Amantadine] 100 mg PO TID 03/19/21 10/06/24 History Levothyroxine Sodium [Levo-T] 112 mcg PO DAILY 08/21/22 10/06/24 History QUEtiapine [SEROquel] 150 mg PO HS 08/21/22 10/06/24 History Rosuvastatin Calcium 20 mg PO HS 08/21/22 10/06/24 History diazePAM [Valium] 2 mg PO DIRECTED PRN 08/21/22 10/06/24 History lamoTRIgine [LaMICtal] 225 mg PO DAILY 08/21/22 10/06/24 History Metoprolol Succinate (ER) [Toprol 25 mg PO DAILY 30 Days #30 tab 08/22/22 06/09/24 Rx XL] Celecoxib [CeleBREX] 200 mg PO ONCE 11/18/23 11/18/23 History Fludrocortisone [Florinef] 0.1 mg PO BID 11/18/23 10/06/24 History Losartan Potassium 25 mg PO BID 10/06/24 10/06/24 History Tamsulosin [Flomax] 0.4 mg PO DAILY 10/06/24 10/06/24 History carvediloL [Coreg] 6.25 mg PO BID 10/06/24 10/06/24 History
== END ==
LOC: 3 N SLEEP 13:02
PROVIDERS: ATTEND Internal Medicine
DX: G47.33 Obstructive sleep apnea (adult) (pediatric) (principal); E66.9 Obesity, unspecified; F41.9 Anxiety disorder, unspecified; G20.A1 Parkinson's disease without dyskinesia, without mention of fluctuations; F31.9 Bipolar disorder, unspecified; K21.9 Gastro-esophageal reflux disease without esophagitis; I10 Essential (primary) hypertension; E78.5 Hyperlipidemia, unspecified; Z88.5 Allergy status to narcotic agent; Z68.32 Body mass index [BMI] 32.0-32.9, adult; Z87.39 Personal history of other diseases of the musculoskeletal system and connective tissue; Z91.041 Radiographic dye allergy status; Z88.0 Allergy status to penicillin; Z91.013 Allergy to seafood
CPT/HCPCS: 99212

== ENCOUNTER → 2024-11-11 | Outpatient (CLI) | payer MEDICARE ==
[2024-11-11 15:51] LABS: ALT 11 U/L (10-49); AST 18 U/L (14-35); Albumin 4.3 g/dL (3.8-4.9); Alkaline Phosphatase 80 U/L (41-126); Blood Urea Nitrogen 22.1 mg/dL (9.0-27.0); Calcium 9.4 mg/dL (8.7-10.3); Carbon Dioxide 25.6 mmol/L (21.6-31.8); Chloride 105 mmol/L (96-109); Chol/HDL Ratio 2.41 Ratio; Globulin 3.3 g/dL (1.6-3.3); Glucose 110 mg/dL (70-110); LDL Cholesterol,Calculated 69.1 mg/dL (0.0-131.0); Potassium 4.1 mmol/L (3.5-5.5); Sodium 143 mmol/L (135-145); Total Bilirubin 0.5 mg/dL (0.3-1.2); Total Protein 7.6 g/dL (6.2-8.2)
== END | disposition home or self-care (01) ==
LOC: LABWHC1 10:57
PROVIDERS: ATTEND Family Medicine
DX: E03.9 Hypothyroidism, unspecified (principal); E78.5 Hyperlipidemia, unspecified
CPT/HCPCS: 36415; 80053; 80061; 84443

== ENCOUNTER → 2025-04-07 | Outpatient (CLI) | payer MEDICARE ==
--- NOTE | 2025-04-07 10:06 | US ---
EXAMINATION TYPE: US prostate transrectal DATE OF EXAM: 04/07/2025 COMPARISON: NONE CLINICAL INDICATION: Male, 70 years old with history of N40.1 BENIGN PROSTATIC HYPERPLASIA WITH LOWER URIN; BPH. urinary retention. urinary urgency TECHNIQUE: Grayscale and color Doppler imaging of the prostate gland. This examination was performed using the transrectal probe. EXAM MEASUREMENTS: Gland Size: 5.5 x 2.9 x 5.7cm Volume: 48.7ml Predicted PSA: 5.84 Actual PSA (if available):not available heterogenous gland. no distinct nodule visualized within peripheral zone at this time IMPRESSION: 1. Enlarged prostate gland consistent with BPH. No suspicious masses visualized. 2. Note that prostate MRI is a more sensitive exam for the detection of clinically significant prost ate adenocarcinoma. [facility], , 04/07/2025 10:04 AM
== END | disposition home or self-care (01) ==
LOC: RADUSWWP 09:02
PROVIDERS: ATTEND Urology
DX: N40.1 Benign prostatic hyperplasia with lower urinary tract symptoms (principal); N40.0 Benign prostatic hyperplasia without lower urinary tract symptoms; N13.8 Other obstructive and reflux uropathy
CPT/HCPCS: 76872